=== PATIENT | male | born 1955 | race Caucasian/White ===

== ENCOUNTER 2018-01-28 23:33 | Inpatient (IN) | payer SELFPAY ==
[2018-01-29 00:37] LABS: Troponin I 0.194 ng/mL (< 0.028)
[2018-01-29 03:38] LABS: Troponin I 0.206 ng/mL (< 0.028)
[2018-01-29] MEDS ORDERED: Gabapentin 100 MG CAP PO SCH (05:45)
[2018-01-29] MEDS: diphenhydrAMINE 25 MG CAP PO PRN (06:12)
[2018-01-29] MEDS ORDERED: Artificial Tear Sol 15 ML BOT EA EYE PRN (09:04)
[2018-01-29] MEDS ORDERED: Acetaminophen 325 MG TAB PO PRN (09:04)
[2018-01-29] MEDS ORDERED: Bisacodyl 5 MG TAB PO PRN (09:04)
[2018-01-29] MEDS ORDERED: Bisacodyl 10 MG SUPP PR PRN (09:04)
[2018-01-29] MEDS ORDERED: Calcium Carbonate 500 MG ChewTAB PO PRN (09:04)
[2018-01-29] MEDS ORDERED: Loperamide HCl 2 MG CAP PO PRN (09:04)
[2018-01-29] MEDS ORDERED: Cepastat Lozenges 1 LOZ PO PRN (09:04)
[2018-01-29] MEDS ORDERED: hydrALAZINE 20 MG/ML VIAL SLOW IVP PRN (09:04)
[2018-01-29] MEDS ORDERED: Eucerin (Mineral Oil/Petrolatum,White) 30 gm Jar TOP PRN (09:04)
[2018-01-29] MEDS ORDERED: Ondansetron PF 4 MG/2 ML Vial IVP PRN (09:04)
[2018-01-29] MEDS ORDERED: Senokot S 8.6-50 MG TAB PO PRN (09:04)
[2018-01-29] MEDS ORDERED: Ondansetron ODT 4 MG TAB PO PRN (09:04)
[2018-01-29] MEDS ORDERED: Nitroglycerin 0.4 MG TAB (25 Tab Bottle) SL PRN (09:04)
[2018-01-29] MEDS ORDERED: Sodium Chloride 0.65% Nasal 44 ML BOT EA NARE PRN (09:04)
[2018-01-29] MEDS ORDERED: Diabetic Tussin 200 MG/10 ML UDCUP PO PRN (09:04)
[2018-01-29] MEDS ORDERED: Dextrose 5% in Water 1,000 ML IV PRN (09:09)
[2018-01-29] MEDS ORDERED: Dextrose 50% Abboject 50 ML SYRINGE SLOW IVP PRN (09:09)
[2018-01-29] MEDS ORDERED: Furosemide 40 MG/4 ML VIAL SLOW IVP SCH (09:30)
--- NOTE | 2018-01-29 10:17 | HP ---
PRIMARY CARE PHYSICIAN: [facility] call admission. The patient does not have any current primary care tony londono. He sometimes follows [facility]. REASON FOR ADMISSION: Transfer from [facility] for CHF exacerbation and atrial fibr illation with rapid ventricular response. HISTORY OF PRESENT ILLNESS: A 62-year-old male who has underlying history of congestive heart failur e, type of congestive heart failure is not known. The patient reports that he used to follow up at [facility], but he does not have any remembrance of type of congestive heart failure. He also reports that he has underlying history of atrial fibrillation and one point he was on chronic an ticoagulation. In addition to that, he has underlying morbid obesity, sleep apnea, hypertension, and diabetes type 2. The patient reports that he lost his job and he lost his insurance and for the last one month he was not able to take any medication. The patient reports that he cannot afford any medication and that i s why he stopped taking the medication. Since then, the patient is having increasing shortness of breath, dyspnea on exertion, orthopnea, PND , and increasing bilateral lower extremity pitting edema. For the last one week, the patient was not able to sleep because of orthopnea and PND. Even after a little exertion, he was getting out of natalia ath. The patient decided to go to [facility] where he was found with atrial fibrillation with RVR based on electrocardiogram and chest x-ray showed cardiomegaly with congestion. His blood s ugar was also out of control. At [facility], he was given Cardizem 20 mg IV push, L asix 80 mg and Novolin R 8 units. Subsequently, this patient was transferred to our emergency room f or admission. The patient denies any chest pain, palpitation. He denies any dizziness, syncope. He denies any fev er or chills. He denies any UTI symptoms. He denies any constipation, diarrhea, melena or hematoche lizandro. The patient reports that he lives alone at home. He has home CPAP machine. REVIEW OF SYSTEMS: The following complete review of systems was negative, unless otherwise mentioned in the HPI or below: Constitutional: Weight loss or gain, ability to conduct usual activities. Sk in: Rash, itching. Eyes: Double vision, pain. ENT/Mouth: Nose bleeding, neck stiffness, pain, tenderness. Cardiovascular: Palpitations, dyspnea on exertion, orthopnea. Respiratory: Shortness of breath, wheezing, cough, hemoptysis, fever or night sweats. Gastrointestinal: Poor appetite, abdominal pain, heartburn, nausea, vomiting, constipation, or diarr hea. Genitourinary: Urgency, frequency, dysuria, nocturia. Musculoskeletal: Pain, swelling. Neurologic/Psychiatric: Anxiety, depression. Allergy/Immunologic: Skin rash, bleeding tendency. Please see my HPI for pertinent positive and negative. All other review of systems reviewed and nega tive except as mentioned in the HPI. EMERGENCY ROOM COURSE: The patient is given Novolin R 8 units, aspirin 324 mg, Cardizem 20 mg push, Lasix 80 mg at [facility] and the patient has received nothing in our emergency room . ALLERGIES: No known drug allergy. CURRENT HOME MEDICATIONS: Amlodipine 10 mg p.o. daily, aspirin 324 mg p.o. daily, Coreg 25 mg p.o. b .i.d., Lasix 40 mg p.o. b.i.d., glipizide 10 mg p.o. daily, lisinopril 20 mg p.o. daily, metformin 10 00 mg p.o. b.i.d. PAST MEDICAL HISTORY: 1. Congestive heart failure, type of congestive heart failure is not known. 2. Hypertension. 3. Diabetes type 2. 4. Morbid obesity with BMI of 47. 5. Obstructive sleep apnea on CPAP. 6. Atrial fibrillation. 7. Diabetes type 2. PAST SURGICAL HISTORY: The patient reports that he had broken bone surgeries like right wrist, left knee, left elbow and left foot surgery, but no other organ surgery. PAST PSYCHIATRIC HISTORY: Anxiety and depression. The patient denies any suicidal or homicidal idea tion. FAMILY HISTORY: The patient denies any strong family history of premature coronary artery disease, s troke or cancer. No family history of cardiomyopathy. SOCIAL HISTORY: The patient lives alone in the [place] area. He has 3 kids, lives in the [facility] area. He drinks alcohol occasionally once a month. He denies any smoking. He has pets. He denie s any other illicit drug abuse. He is currently not working. PHYSICAL EXAMINATION: VITAL SIGNS: On arrival to our emergency room, blood pressure 120/85, pulse 105 and irregular, respi ratory rate 22, saturation 99% on 2 liter oxygen, weight 145 kilograms. GENERAL: The patient is currently alert, awake, mild distress due to orthopnea. HEENT: Head: Normocephalic, atraumatic. Eyes: Pupils round, reactive to light. Extraocular muscl e intact. ENT: Oropharynx within normal limits. Moist mucous membranes, no oral lesions, no pharyn geal erythema, no exudate. NECK: Supple, elevated JVD, no thyromegaly, no carotid bruit. LUNGS: Coarse breath sounds. Few basal rales noted. No wheezing. No end expiratory muscles of res piration in use. CARDIAC: S1, S2 irregular. No murmur, no gallop, no rub. ABDOMEN: Morbid obesity limiting examination. No peritoneal sign, no guarding, no rigidity, no rebo und. BACK: Unremarkable, no CVA tenderness. EXTREMITIES: Upper extremity passive movement of all joints are normal. Lower extremity bilateral + 3 pitting edema noted. Good distal pulsation. SKIN: No skin rash. HEMATOLOGICAL: No lymphadenopathy. PSYCHIATRIC: Normal affect. NEUROLOGIC: Nonfocal examination. SIGNIFICANT LABORATORY DATA AND IMAGING: CBC: WBC 7.1, hemoglobin 14.6, platelet 113. BMP: Sodium 137, potassium 4.3, chloride 103, carbon dioxide 23, BUN 19, creatinine 1.68. Glucose 320, calcium 9.5. LFT: AST 25, ALT 17, alkaline phosphatase 71, albumin 3.8. CK-MB 7.3, troponin I 0.186, then 0.0194, then 0.206. Urinalysis; glucosuria and proteinuria. Chest x-ray based on my review consistent with cardiomegaly, pulmonary vascular congestion. EKG show ing atrial fibrillation with rapid ventricular response. ASSESSMENT AND PLAN: 1. Acute on chronic congestive heart failure. I am suspecting diastolic heart failure because of as sociated hypertension, atrial fibrillation, and morbid obesity. To confirm type of congestive heart failure, the patient will need echocardiography. The patient will need aggressive diuretic therapy with Lasix 40 mg p.o., fluid restriction 1500 mL per day. We will monitor electrolytes and renal fun ction and replace electrolytes accordingly. We will monitor daily weight and titrate his cardiac med ication accordingly. Based on severity of illness, the patient will need hospitalization for more th an 2 midnights and during this admission, the patient will have cardiac rehab. The patient will need outpatient follow up with PCP as well as [facility]. 2. Atrial fibrillation with rapid ventricular response. At this point, rate appears to be controlle d and I am starting with the Coreg 25 mg p.o. b.i.d. and the patient needs chronic anticoagulation be cause of high CHADS2-VASc score and that is why we will start Eliquis 5 mg p.o. b.i.d., aspirin 81 mg p.o. daily. If heart rate remains faster, then we will consider adding digoxin. Depending upon ech ocardiographic finding and clinical course, we will decide Cardiology consultation while in hospital. 3. Elevated troponin, likely due to demand ischemia of myocardium secondary to congestive heart fail ure exacerbation and atrial fibrillation with rapid ventricular response. The patient is on aspirin 81 mg p.o. daily and we will check lipid profile tomorrow morning. We will start Lipitor 40 mg p.o. at bedtime. 4. Morbid obesity. Dietary education given, weight loss education given. Healthy lifestyle measure s discussed with the patient. 5. Obstructive sleep apnea. The patient will need CPAP machine while in hospital as well. 6. Diabetes type 2. Diabetic diet will be given, insulin as per sliding scale per protocol. We js l continue glipizide 10 mg p.o. daily and metformin 1000 mg p.o. b.i.d. 7. Hypertension. Because of lower extremity edema, we are going to hold amlodipine for now, but we will continue lisinopril, Coreg, and Lasix. 8. Chronic kidney disease stage 3. We will monitor renal function and avoid nephrotoxin agents. 9. Mild thrombocytopenia. We will repeat CBC tomorrow. 10. Hyperglycemia associated with diabetes type 2. Likely due to noncompliance with the treatment. We are starting medication now and will monitor blood sugar and adjust medication as needed. 11. Glucosuria, proteinuria. We will check urine protein/creatinine ratio and rule out nephrotic sy ndrome. 12. Deep venous thrombosis prophylaxis. We have started Eliquis therapy for atrial fibrillation and that is why no need of Lovenox. 13. Gastrointestinal prophylaxis, Pepcid 20 mg p.o. b.i.d. 14. Code status. I spoke with the patient and the patient does not want to be resuscitated in case of cardiopulmonary arrest and code status confirmed with him. He makes his own decisions. 15. Edema, bilateral lower extremities, most likely related with congestive heart failure, but assoc iated deep venous thrombosis. We will rule out with ultrasound of the lower extremity. 16. We will check tomorrow BNP, magnesium, uric acid, TSH, lipid profile, hemoglobin A1c, and routin e labs. Plan of care discussed with the patient in detail.
[2018-01-29] MEDS: Gabapentin 100 MG CAP PO SCH ×2 (10:18→22:08)
[2018-01-29 10:21] LABS: Hemoglobin 14.3 g/dL (14.0-18.0); Platelet Count 107 thou/uL (130-400)
[2018-01-29 12:56] LABS: Bilirubin Negative (Negative); Blood, Urine Negative (Negative); Clarity CLEAR (Clear); Glucose, Urine (Dipstick) 100 mg/dL (Negative); Leukocyte Negative (Negative); Nitrite Negative (Negative); Protein, Urine (Dipstick) 30 mg/dL (Neg-Trace); Specific Gravity, Urine 1.011 (1.002-1.036)
[2018-01-29 12:57] LABS: Bacteria/HPF None Seen HPF (None Seen); Hyaline Casts/LPF 4-6 HYALINE CAST LPF (0-3 Hyaline); Pathc Cast-AUWi Flag 1.01 (0-2.49); RBC/HPF 0-3 HPF (0-3); Squamous Epithelial 0-3 HPF (0-3); WBC/HPF 0-3 HPF (0-3)
--- NOTE | 2018-01-29 12:59 | ULT ---
BILATERAL LOWER EXTREMITY VENOUS DUPLEX ULTRASOUND INCLUDING COLOR AND SPECTRAL DOPPLER IMAGING: HISTORY: A 62-year-old male with a history of bilateral leg edema. FINDINGS: The left common femoral vein and greater saphenous vein were inadequately visualized because of body habitus and patient unable to lay flat on this back. Otherwise, the greater saphenous, common femoral, superficial femoral, profunda femoral, popliteal, t rifurcation, and posterior tibial veins were visualized bilaterally with normal compressibility and n ormal augmentation. No intraluminal thrombus. IMPRESSION: No evidence for deep venous thrombosis. POS: CARLIE
[2018-01-29 13:10] LABS: Creatinine, Urine 89.03 mg/dL (63-166)
[2018-01-29] MEDS: Furosemide 40 MG/4 ML VIAL SLOW IVP SCH (14:29)
[2018-01-29] MEDS: HYDROcodone/Acetaminophen 5/325 mg Tablet PO PRN ×2 (14:31→22:08)
[2018-01-29] MEDS: HumaLOG 300 UNITS/3 ML VIAL SC PRN ×2 (16:02→22:09)
[2018-01-29] MEDS: metFORMIN 500 MG TAB PO SCH (17:14)
[2018-01-29] MEDS ORDERED: Digoxin 0.5 MG/2 ML AMP SLOW IVP SCH (20:30)
[2018-01-29] MEDS: Apixaban 5 MG TAB PO SCH (22:07)
[2018-01-29] MEDS: Atorvastatin Calcium 40 MG TAB PO SCH (22:08)
[2018-01-29] MEDS: Famotidine 20 MG TAB PO SCH (22:08)
[2018-01-29] MEDS: Carvedilol 25 MG TAB PO SCH (22:08)
--- NOTE | 2018-01-29 22:29 | CON ---
DATE OF CONSULTATION: 01/29/2018 INDICATION FOR CONSULTATION: This is a 62-year-old patient with congestive heart failure, cardiomyop athy, atrial fibrillation with rapid ventricular response. HISTORY OF PRESENT ILLNESS: This is a very unfortunate 62-year-old gentleman, who has a history of c ardiomyopathy and congestive heart failure for many years. He first had episodes of congestive heart failure back in 2004 when he was in [place] and was diagnosed with atrial fibrillation. He has not undergone cardioversion. He did have a cardiac catheterization several years ago when he was either in [place] or [place], and I believe in 2009, he had a cardiac catheterization and was told that he had normal coronary arteries. He did see a public relations analyst in [place] about 3 years ago and confirmed bridger romero that he has congestive heart failure. There has been no attempt to cardiovert the patient as far as he knows, but he does have a dilated left atrium as well as dilated right atrium and dilated righ t ventricle and left ventricle. At this time, he presented to [facility] avila velazquez of increasing shortness of breath, was found to have atrial fibrillation with rapid ventricular res ponse. He continues to have atrial fibrillation at this time and continues to have a rapid ventricul ar response. His heart rate is in the 100s to 110s, so he has been seen by the Hospitalist Service a nd he has been placed on Coreg, but I do not see that he is on diltiazem and will need to better cont rol. We may need to add some digoxin to the patient to see whether or not we can better control his heart rate, but at this time, he remains in atrial fibrillation with rapid ventricular response, whic h he has been in atrial fibrillation for many years, though suspect this is one of the etiology of hi s cardiomyopathy. Unfortunately, he has had some problems with his work. 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 He, for the last couple months, has not been taking his medications. He s aid he has had increasing shortness of breath. He did have lower extremity edema, which he said orig inally improved after he stopped taking his medications, but then the edema returned. He said he los t about 50 pounds. He still weighs about over 300 pounds and at one time said he was up to almost 40 0 pounds and mainly notes that he was getting more and more short of breath over the last several wee ks and then presented to the emergency room. He has not had any insurance, has been unable to take t he medications and unable to afford them. He also has not been followed up by any medical doctor and then presented to the emergency room. He does have a CPAP mask, which he wears at home and he also lives alone. PAST MEDICAL HISTORY: Significant for congestive heart failure, morbid obesity, history of atrial fi brillation. He has had several surgeries for broken wrist, knees, and elbows, and foot surgery. He has hypertension. He has type 2 diabetes. He has sleep apnea, for which he wears a CPAP mask. He h as history of the congestive heart failure as noted above. He does have a history of depression and anxiety. ALLERGIES: None. MEDICATIONS: Prior to admission should have included amlodipine 10 mg a day, aspirin 324 mg a day, C oreg, which he said he takes actually 84, baby aspirin a day. He takes Coreg 25 b.i.d., Lasix 40 mg b.i.d., glipizide, lisinopril, and metformin 1000 mg b.i.d. FAMILY HISTORY: Noncontributory at this time for any early heart disease. SOCIAL HISTORY: He does have children who are alive and well. He does not smoke. He says he has ne elian smoked and he has only minimal alcohol use, occasionally with a meal. He will drink some alcohol , but relatively unusual, and he denied any illicit drug use. REVIEW OF SYSTEMS: He mainly complains of the lower extremity edema and of the shortness of breath. He has had some lower extremity ulcerations, for which he dresses himself. He puts a wrap on them a nd they since resolved, but otherwise he denied any or GI complaints otherwise and no neurological symptoms or complaints. PHYSICAL EXAMINATION: GENERAL: Morbidly obese gentleman. VITAL SIGNS: Blood pressure is 125/84, respiratory rate 17-22, heart rate is anywhere between 95 and 130 with atrial fibrillation. He is afebrile. HEENT: Shows the head to be normocephalic and atraumatic. I cannot elicit any significant bruits. He has somewhat poor dentition, somewhat unkempt gentleman. CHEST: Has decreased breath sounds in the bases, but otherwise I cannot elicit any significant rales , rhonchi or wheezing. CARDIOVASCULAR: Exam reveals an irregularly irregular rhythm. It does appear that he does have also despite having the regular rhythm, he most likely has an S3. Heart rate is somewhat tachycardic at times. I did not hear any gross murmurs. ABDOMEN: Shows morbid obesity. I cannot even do any reasonable examination due to the obesity. EXTREMITIES: Show 2 to 3+ lower extremity edema. He has some bandages over both lower extremities, just small areas due to ulcerations apparently. I cannot palpate pedal pulses, but most likely this is due to the edema. NEUROLOGIC: He appears to be intact. I cannot elicit any gross focal motor deficits. SKIN: Warm and dry at this time. LABORATORY DATA: Shows a troponin I of 0.194 increased up to 0.26. Creatinine is 1.66 with a BUN of 19, potassium was 4.3, blood sugar was 277 and previous was 320. BNP was 848. Hemoglobin 14.3. IMPRESSION: 1. Atrial fibrillation with rapid ventricular response in a gentleman who has had atrial fibrillatio n for many years apparently, who has stopped taking his medications due to financial issues. We will need to restart his medications. He needs to be on a beta allie and also most likely digoxin for rate control. He has not had an attempted cardioversion, but fairly unlikely that we do any good at this time. According to my evaluation with echocardiogram, the left atrium is dilated as well as the right atrium, and for electrical cardioversion, whether or not he would be a candidate for at this t zaid and it will be very difficult even for an ablation of the atrial fibrillation. We will need to g et him back on his medication and see whether or not he is cooperative and compliant with his medical therapy, but the patient did tell me that he underwent a cardiac catheterization previously and was told that he had normal coronary arteries in 2009. 2. Cardiomyopathy with severe decrease in left ventricular systolic function. This may be related t o the atrial fibrillation with rapid ventricular response and not taking his medications. Hopefully, he will get some improvement after starting back on the medications. He may otherwise become a cand idate for an AICD implant. We will try to obtain the records from [place] to see whether or not they had any insight as to whether or not he truly does have normal coronary arteries and whether or not h e will need to undergo further evaluation. The weight limit on the table may be 350 pounds, I am unc ertnick, but we will need to look that they may have one table at veterinary laboratory diagnostician that is 400 pounds and he m ay need to undergo cardiac catheterization, but he will need to be diuresed first and the heart rate will need to be under better control. 3. History of right bundle branch block. This is not a new finding apparently in this patient, but I do not have any old EKGs for comparison. 4. What appears to be diastolic dysfunction with restrictive type pattern. Again, we will need to m odify the medical management as much as possible. 5. Chronic atrial fibrillation. He had been on Coumadin in the past. It was too difficult to saida susan to monitor the INR. He then was on Xarelto and could not afford the medication. He is now just taking 4 baby aspirin a day. In the future, he will need to have some type of financial help to obta in his medications and we will suggest a consultation with the financial services here at the [facility] and then most likely he can try to apply for Medicare or Medicaid. The gentleman is only 62 years old and would not become 63 years old until next year, but most likely would be a candidate for at [facility] Medicare or Medicaid based on his severe cardiomyopathy and inability to mobilize due to his morb id obesity as well as his other multiple medical problems. 6. History of diabetes. This will be dealt with by the primary care service. 7. Morbid obesity. I will suggest that he have a dietary consultation to see whether or not we can improve some of this weight. He should reduce at least 100 to 150 pounds and this may improve some o f his overall symptoms.
[2018-01-30] MEDS: Furosemide 40 MG/4 ML VIAL SLOW IVP SCH ×2 (05:28→14:57)
[2018-01-30] MEDS: Digoxin 0.5 MG/2 ML AMP SLOW IVP SCH ×4 (05:29→22:14)
[2018-01-30 07:38] LABS: INR-International Normal Ratio 1.7; Prothrombin Time 20.1 SEC (12.0-14.7)
[2018-01-30 07:41] LABS: Hemoglobin A1c 11.2 % (4.0-6.0)
[2018-01-30 07:42] LABS: #Eosinphils 0.1 thou/uL (0.0-0.7); #Lymphocytes 1.1 thou/uL (1.20-3.40); #Monocytes 0.6 thou/uL (0.11-0.59); #Neutrophils 4.8 thou/uL (1.40-6.50); %Basophils 0.6 % (0.0-1.0); %Eosinophils 1.9 % (0.0-10.0); %Lymphocytes 16.1 % (21.0-51.0); %Monocytes 9.1 % (0.0-10.0); %Neutrophils 72.3 % (42.0-75.0); Hemoglobin 13.4 g/dL (14.0-18.0); Mean Corpuscular HGB CONC 32.8 g/dL (32.0-36.0); Mean Corpuscular Hemoglobin 31.4 pg (27.0-31.0); Mean Corpuscular Volume 95.6 fL (78.0-98.0); Mean Platelet Volume 8.8 fL (7.4-10.4); Platelet Count 92 thou/uL (130-400); RBC Distribution Width 12.9 % (11.5-14.5); Red Blood Cell (RBC) Count 4.28 mill/uL (4.70-6.10); White Blood Cell (WBC) Count 6.6 thou/uL (4.8-10.8)
[2018-01-30 08:07] LABS: ALT (SGPT) 14 U/L (8-55); AST (SGOT) 24 U/L (5-34); Albumin 3.1 g/dL (3.4-4.8); Alkaline Phosphatase 60 U/L (40-150); Anion Gap 14 mmol/L (10-20); BUN (Urea Nitrogen) 27 mg/dL (8.4-25.7); Bilirubin, Total 1.3 mg/dL (0.2-1.2); Calc. Creatinine Clearance 94 mL/min (70-130); Carbon Dioxide 21 mmol/L (23-31); Cardiac Risk 4.8 (Less than 4.5); Chloride 102 mmol/L (98-107); Cholesterol 100 mg/dl (< 200 Desired); Estimated GFR-MDRD 43; Globulin 2.8 g/dL (2.4-3.5); Glucose 218 mg/dL (80-115); HDL Cholesterol 21 mg/dL (>60 Neg Risk); LDL Cholesterol, Calculated 62 mg/dL; Magnesium 1.4 mg/dL (1.6-2.6); Potassium 3.8 mmol/L (3.5-5.1); Protein, Total 5.9 g/dL (5.8-8.1); Sodium 133 mmol/L (136-145); Triglycerides 84 mg/dL (Less than 150); Uric Acid 7.8 mg/dL (3.5-7.2)
[2018-01-30] MEDS: metFORMIN 500 MG TAB PO SCH ×2 (08:53→17:13)
[2018-01-30] MEDS: Gabapentin 100 MG CAP PO SCH ×2 (08:53→20:39)
[2018-01-30] MEDS: Famotidine 20 MG TAB PO SCH ×2 (08:53→20:39)
[2018-01-30] MEDS: glipiZIDE 10 MG TAB PO SCH (08:54)
[2018-01-30] MEDS: Carvedilol 25 MG TAB PO SCH (08:54)
[2018-01-30] MEDS: Apixaban 5 MG TAB PO SCH ×2 (08:54→20:39)
[2018-01-30] MEDS: Sodium Chloride 0.9% 10 ML ONE ×4 (08:55→20:39)
[2018-01-30] MEDS: HumaLOG 300 UNITS/3 ML VIAL SC PRN ×2 (08:57→12:11)
[2018-01-30] MEDS ORDERED: Lisinopril 20 MG TAB PO SCH (09:00)
[2018-01-30] MEDS ORDERED: Aspirin 325 MG TAB PO SCH (09:00)
[2018-01-30] MEDS ORDERED: Enoxaparin Sodium 40 MG/0.4 ML SYRINGE SC SCH (09:00)
[2018-01-30] MEDS: HYDROcodone/Acetaminophen 5/325 mg Tablet PO PRN ×2 (09:10→20:46)
[2018-01-30] MEDS: Digoxin 0.25 MG TAB PO SCH (09:11)
--- NOTE | 2018-01-30 09:34 | RAD ---
CHEST 1 VIEW: HISTORY: Respiratory distress. COMPARISON: Radiograph of 01/28/2018. FINDINGS: Heart size is enlarged. Pulmonary arteries are dilated. Mild pulmonary venous congestion. Small ef fusions. No pneumothorax. IMPRESSION: No significant change in radiographic appearance of the chest. POS: KRISTINE
--- NOTE | 2018-01-30 10:10 | PDOC.PN ---
- Subjective Encounter Start Date: 01/30/18 Encounter Start Time: 07:40 -: old records requested/rev Patient seen and examined. No new complaints. No overnight events still has orthopnea and dyspnea - Objective Resuscitation Status: Resuscitation Status DNR:Do Not Resuscitate MAR Reviewed: Yes Vital Signs & Weight: Vital Signs (12 hours) Temp Pulse Resp BP Pulse Ox 01/30/18 09:11 80 01/30/18 08:36 77 20 95 01/30/18 08:00 97.4 F L 82 20 96/64 95 01/30/18 05:29 93 01/30/18 04:27 95 01/30/18 04:24 22 H 95 01/30/18 03:36 97.7 F 92 20 109/73 92 L 01/30/18 00:05 96 01/29/18 23:15 116/68 Weight Weight 323 lb I&O: 01/29/18 01/30/18 01/31/18 06:59 06:59 06:59 Intake Total 500 600 Output Total 175 575 Balance 325 25 Result Diagrams: 01/30/18 06:56 01/30/18 06:56 Additional Labs: Accuchecks 01/30/18 01/29/18 01/29/18 06:01 21:02 17:31 POC Glucose 242 H 244 H 277 H 01/29/18 01/29/18 14:54 11:02 POC Glucose 276 H 288 H Radiology Reviewed by me: Yes (echo reviewed) EKG Reviewed by me: Yes (afib) Phys Exam - Physical Examination Constitutional: NAD HEENT: PERRLA, moist MMs, sclera anicteric Neck: supple high jvd Respiratory: no wheezing, no rhonchi basal rales Cardiovascular: no significant murmur, irregular Gastrointestinal: soft, non-tender, no distention, positive bowel sounds Musculoskeletal: pulses present, edema present Neurological: non-focal, normal sensation, moves all 4 limbs Lymphatic: no nodes Psychiatric: normal affect, A&O x 3 Skin: no rash, normal turgor Dx/Plan (1) Acute on chronic systolic ACC/AHA stage C congestive heart failure Code(s): I50.23 - ACUTE ON CHRONIC SYSTOLIC (CONGESTIVE) HEART FAILURE Status : Acute (2) Atrial fibrillation with RVR Code(s): I48.91 - UNSPECIFIED ATRIAL FIBRILLATION Status: Acute (3) Demand ischemia of myocardium Code(s): I24.8 - OTHER FORMS OF ACUTE ISCHEMIC HEART DISEASE Status: Acute (4) CKD (chronic kidney disease) stage 3, GFR 30-59 ml/min Code(s): N18.3 - CHRONIC KIDNEY DISEASE, STAGE 3 (MODERATE) Status: Chronic (5) Diabetes type 2, controlled Code(s): E11.9 - TYPE 2 DIABETES MELLITUS WITHOUT COMPLICATIONS Status: Chronic (6) Hypertension Code(s): I10 - ESSENTIAL (PRIMARY) HYPERTENSION Status: Chronic (7) Morbid obesity with BMI of 45.0-49.9, adult Code(s): E66.01 - MORBID (SEVERE) OBESITY DUE TO EXCESS CALORIES; Z68.42 - BODY MASS INDEX (BMI) 45.0-49.9, ADULT Status: Chronic (8) NADEEM on CPAP Code(s): G47.33 - OBSTRUCTIVE SLEEP APNEA (ADULT) (PEDIATRIC); Z99.89 - DEPENDENCE ON OTHER ENABLING MACHINES AND DEVICES Status: Chronic (9) Hypomagnesemia Code(s): E83.42 - HYPOMAGNESEMIA Status: Acute (10) Hyperuricemia Code(s): E79.0 - HYPERURICEMIA W/O SIGNS OF INFLAM ARTHRIT AND TOPHACEOUS DIS Status: Acute - Plan cont current plan of care * continue diuresis today * medication reviewed as below * symptomatic treatment * he will need several days to make him euvolemic * will titrate medication as tolerated * cardiology recommendation appreciated * will monitor. * replace magnesium * start allopurinol * reduce coreg and lisinopril for low BP Review of Systems - Review of Systems Constitutional: negative: fever, chills, sweats, weakness, malaise, other Eyes: negative: Pain, Vision Change, Conjunctivae Inflammation, Eyelid Inflammation, Redness, Other ENT: negative: Ear Pain, Ear Discharge, Nose Pain, Nose Discharge, Nose Congestion, Mouth Pain, Mouth Swelling, Throat Pain, Throat Swelling, Other Respiratory: SOB with Excertion. negative: Cough, Dry, Shortness of Breath, Hemoptysis, Pleuritic Pain, Sputum, Wheezing Cardiovascular: orthopnea, edema. negative: chest pain, palpitations, paroxysmal nocturnal dyspnea, light headedness, other Gastrointestinal: negative: Nausea, Vomiting, Abdominal Pain, Diarrhea, Constipation, Melena, Hematochezia, Other Genitourinary: negative: Dysuria, Frequency, Incontinence, Hematuria, Retention , Other Musculoskeletal: negative: Neck Pain, Shoulder Pain, Arm Pain, Back Pain, Hand Pain, Leg Pain, Foot Pain, Other Skin: negative: Rash, Lesions, Alvaro, Bruising, Other - Medications/Allergies Allergies/Adverse Reactions: Allergies Allergy/AdvReac Type Severity Reaction Status Date / Time No Known Allergies Allergy Verified 01/29/18 03:22 Medications: Current Medications Acetaminophen (Tylenol) 650 mg PO Q4H PRN PRN Reason: Headache/Fever/Mild Pain (1-3) Hydrocodone Bitart/Acetaminophen ([place] 5/325) 1 tab PO Q4H PRN PRN Reason: Moderate Pain (4-6) Last Admin: 01/30/18 09:10 Dose: 1 tab Albuterol/Ipratropium (Duoneb) 3 ml NEB [id number] PRN PRN Reason: SOB &/or Wheezing Last Admin: 01/30/18 08:36 Dose: 3 ml Apixaban (Eliquis) 5 mg PO BID [facility] Last Admin: 01/30/18 08:54 Dose: 5 mg Artificial Tears (Tears Renewed 15ml Bottle) 2 drop EA EYE PRN PRN PRN Reason: Dry Eyes Aspirin (Aspirin Chewable) 81 mg PO DAILY [facility] Last Admin: 01/30/18 08:53 Dose: 81 mg Atorvastatin Calcium (Lipitor) 40 mg PO HS [facility] Last Admin: 01/29/18 22:08 Dose: 40 mg Bisacodyl (Dulcolax) 10 mg PO DAILYPRN PRN PRN Reason: Constipation Bisacodyl (Dulcolax) 10 mg [place] DAILYPRN PRN PRN Reason: Constipation Calcium Carbonate (Tums) 1,000 mg PO Q4H PRN PRN Reason: Heartburn or Indigestion Carvedilol (Coreg) 25 mg PO BID [facility] Last Admin: 01/30/18 08:54 Dose: 25 mg Dextrose/Water (Dextrose 50%) 25 gm SLOW IVP PRN PRN PRN Reason: Hypoglycemia Digoxin (Lanoxin) 0.25 mg SLOW IVP Q8HR [facility] Stop: 01/30/18 22:01 Last Admin: 01/30/18 05:29 Dose: 0.25 mg Digoxin (Lanoxin) 0.25 mg PO QAM [facility] Last Admin: 01/30/18 09:11 Dose: 0.25 mg Diphenhydramine HCl (Benadryl) 25 mg PO Q6H PRN PRN Reason: Itching Last Admin: 01/29/18 06:12 Dose: 25 mg Famotidine (Pepcid) 20 mg PO BID [facility] Last Admin: 01/30/18 08:53 Dose: 20 mg Furosemide (Lasix) 40 mg SLOW IVP 0600,1400 [facility] Last Admin: 01/30/18 05:28 Dose: 40 mg Gabapentin (Neurontin) 100 mg PO BID [facility] Last Admin: 01/30/18 08:53 Dose: 100 mg Glipizide (Glucotrol) 10 mg PO DAILY [facility] Last Admin: 01/30/18 08:54 Dose: 10 mg Glucagon (Glucagon) 1 mg IM PRN PRN PRN Reason: Hypoglycemia Guaifenesin (Robitussin Sf) 200 mg PO Q4H PRN PRN Reason: Cough Hydralazine HCl (Apresoline) 10 mg SLOW IVP Q4H PRN PRN Reason: SBP > 180 and HR < 70 Dextrose/Water (D5w) 1,000 mls @ 0 mls/hr IV .Q0M PRN PRN Reason: Hypoglycemia Insulin Human Lispro (Humalog) 0 units SC .MODERATE SLIDING SC PRN PRN Reason: Moderate Correctional Scale Last Admin: 01/30/18 08:57 Dose: 4 unit Insulin Human Lispro (Humalog) 0 units SC .BEDTIME SLIDING SC PRN PRN Reason: Bedtime Correctional Scale Last Admin: 01/29/18 22:09 Dose: 2 unit Lisinopril (Zestril) 20 mg PO DAILY [facility] Loperamide HCl (Imodium) 2 mg PO PRN PRN PRN Reason: Diarrhea/Loose Stools Metformin HCl (Glucophage) 1,000 mg PO BID-[facility] Last Admin: 01/30/18 08:53 Dose: 1,000 mg Mineral Oil/White Petrolatum (Eucerin Cream) 0 gm TOP BIDPRN PRN PRN Reason: Dry Skin Nitroglycerin (Nitrostat) 0.4 mg SL Q5MIN PRN PRN Reason: Chest Pain Ondansetron HCl (Zofran Odt) 4 mg PO Q6H PRN PRN Reason: Nausea/Vomiting Ondansetron HCl (Zofran) 4 mg IVP Q6H PRN PRN Reason: Nausea/Vomiting Senna/Docusate Sodium (Senokot S) 2 tab PO BID PRN PRN Reason: Constipation Sodium Chloride ([place] Nasal [place] 0.65%) 0 ml EA NARE QIDPRN PRN PRN Reason: Nasal Congestion Throat Lozenges (Cepastat Lozenges) 1 reggie PO Q2H PRN PRN Reason: Sore Throat Zolpidem Tartrate (Ambien) 5 mg PO HSPRN PRN PRN Reason: Insomnia
[2018-01-30] MEDS ORDERED: Magnesium Sulfate 3 GM in Sodium Chloride 0.9% 100 ML IVPB SCH (10:30)
[2018-01-30] MEDS: Carvedilol 3.125 MG TAB PO SCH (17:14)
[2018-01-30] MEDS: Atorvastatin Calcium 40 MG TAB PO SCH ×2 (20:38→20:39)
[2018-01-30] MEDS ORDERED: ALPRAZolam 0.25 MG TAB PO SCH (22:30)
[2018-01-31] MEDS: Levothyroxine Sodium 25 MCG TAB PO SCH (06:02)
[2018-01-31] MEDS: Furosemide 40 MG/4 ML VIAL SLOW IVP SCH ×2 (06:02→15:01)
[2018-01-31] MEDS: Sodium Chloride 0.9% 10 ML ONE (06:03)
[2018-01-31] MEDS ORDERED: Sodium Chloride 0.9% 10 ML ONE ×2 (08:26→12:42)
[2018-01-31 08:44] LABS: #Basophils 0.1 thou/uL (0.0-0.2); #Eosinphils 0.2 thou/uL (0.0-0.7); #Lymphocytes 1.4 thou/uL (1.20-3.40); #Monocytes 0.6 thou/uL (0.11-0.59); %Eosinophils 2.6 % (0.0-10.0); %Lymphocytes 19.4 % (21.0-51.0); %Monocytes 8.4 % (0.0-10.0); %Neutrophils 68.6 % (42.0-75.0); Hemoglobin 13.9 g/dL (14.0-18.0); Mean Corpuscular HGB CONC 33.1 g/dL (32.0-36.0); Mean Corpuscular Hemoglobin 31.8 pg (27.0-31.0); Mean Corpuscular Volume 96.1 fL (78.0-98.0); Mean Platelet Volume 8.6 fL (7.4-10.4); Platelet Count 98 thou/uL (130-400); RBC Distribution Width 12.9 % (11.5-14.5); Red Blood Cell (RBC) Count 4.37 mill/uL (4.70-6.10); White Blood Cell (WBC) Count 7.2 thou/uL (4.8-10.8)
[2018-01-31 09:06] LABS: Anion Gap 14 mmol/L (10-20); BUN (Urea Nitrogen) 32 mg/dL (8.4-25.7); Calc. Creatinine Clearance 81 mL/min (70-130); Carbon Dioxide 22 mmol/L (23-31); Chloride 102 mmol/L (98-107); Estimated GFR-MDRD 35; Glucose 142 mg/dL (80-115); Magnesium 1.8 mg/dL (1.6-2.6); Potassium 3.8 mmol/L (3.5-5.1); Sodium 134 mmol/L (136-145)
--- NOTE | 2018-01-31 09:16 | PDOC.CTH ---
<Catalina Glaser - Last Filed: 01/31/18 09:22> Cardiology Progress Note - Subjective The pt seen and examined. No overnight events. He reported he has not voided well yesterday and today. He also complains of mod discomfort to his Rt ear. - Objective Vital Signs Temp Pulse Resp BP BP Pulse Ox 01/31/18 08:00 97.5 F L 84 20 112/75 95 01/31/18 02:25 97.5 F L 88 20 128/78 97 01/30/18 22:14 72 Weight 327 lb 14.4 oz 01/30/18 01/31/18 02/01/18 06:59 06:59 06:59 Intake Total 600 1620 Output Total 575 1350 Balance 25 270 - Physical Examination General/Neuro: alert & oriented x3 Neck: no JVD present Lungs: other: (diminished at bases) Heart: other: (irreuglar) Abdomen: soft Extremities: other: (4+ pitting BLE edema) - Telemetry Telemetry Rhythm: AFib 70s - Labs Result Diagrams: 01/31/18 08:25 01/31/18 08:25 Troponin/CKMB Troponin I 0.206 ng/mL (< 0.028) H 01/29/18 02:51 - Assessment/Plan 1. Acute on chronic combined HF - Add Metolazone 5mg x 1 dose this PM; On BBlocker, ANDRES, Lasix IV BID. 2. Afib with RVR - Well controlled HR with Digogixn and Bblocker; on Eliquis. 3. HTN - stable 4. RBBB - stable 5. DM type 2 - 6. NADEEM on Cpap - 7. Hypothyrodism - Levothyroxin was started from this AM by PCP 8. Obese - weight management education given to the pt. SUSAN wang * Echo on 01/29/18 showed EF < 25-30%, dilated LV, mod ERV, mod-severe dilated LA, mod ERA, mild MR and mild TR Review of Systems - Review of Systems Constitutional: reports: weakness EENTM: reports: no symptoms reported Respiratory: reports: no symptoms reported Cardiac (ROS): reports: no symptoms reported ABD/GI: reports: no symptoms reported : reports: no symptoms reported Musculoskeletal: reports: no symptoms reported <Dallas Silva - Last Filed: 01/31/18 17:23> Cardiology Progress Note - Objective Vital Signs Temp Pulse Resp BP BP BP Pulse Ox 01/31/18 17:02 65 18 97 01/31/18 12:00 97.4 F L 73 18 118/84 95 01/31/18 09:36 70 112/75 01/31/18 09:31 70 01/31/18 08:00 97.5 F L 84 20 112/75 95 Admit Weight 232 lb 12.8 oz Weight 327 lb 14.4 oz 01/30/18 01/31/18 02/01/18 06:59 06:59 06:59 Intake Total 600 1620 Output Total 575 1350 Balance 25 270 - Labs Result Diagrams: 01/31/18 08:25 01/31/18 08:25 Troponin/CKMB Troponin I 0.206 ng/mL (< 0.028) H 01/29/18 02:51 - Assessment/Plan Pt. seen and eval. by me. i agree with the A/P by the RAYON TESTER. Chest clear. Irreg/ irreg. Chronic renal insufficiency.
[2018-01-31] MEDS: Allopurinol 100 MG TAB PO SCH (09:29)
[2018-01-31] MEDS: Apixaban 5 MG TAB PO SCH ×2 (09:31→21:24)
[2018-01-31] MEDS: Digoxin 0.25 MG TAB PO SCH (09:31)
[2018-01-31] MEDS: Famotidine 20 MG TAB PO SCH ×2 (09:32→21:25)
[2018-01-31] MEDS: Carvedilol 3.125 MG TAB PO SCH ×2 (09:32→16:52)
[2018-01-31] MEDS: metFORMIN 500 MG TAB PO SCH ×2 (09:32→16:52)
[2018-01-31] MEDS: Gabapentin 100 MG CAP PO SCH ×2 (09:33→21:25)
[2018-01-31] MEDS: glipiZIDE 10 MG TAB PO SCH (09:34)
[2018-01-31] MEDS: Lisinopril 5 MG TAB PO SCH (09:36)
[2018-01-31] MEDS: HYDROcodone/Acetaminophen 5/325 mg Tablet PO PRN ×3 (09:41→21:25)
[2018-01-31] MEDS ORDERED: Carbamide Peroxide 6.5% Otic Drops 15 ml Bottle EA EAR SCH (12:15)
[2018-01-31] MEDS ORDERED: Metolazone 5 MG TAB PO SCH (13:00)
[2018-01-31] MEDS: HumaLOG 300 UNITS/3 ML VIAL SC PRN (13:24)
--- NOTE | 2018-01-31 13:24 | PDOC.PN ---
- Subjective Encounter Start Date: 01/31/18 Encounter Start Time: 10:00 Patient seen and examined. No new complaints. No overnight events - Objective Resuscitation Status: Resuscitation Status DNR:Do Not Resuscitate MAR Reviewed: Yes Vital Signs & Weight: Vital Signs (12 hours) Temp Pulse Resp BP BP BP Pulse Ox 01/31/18 09:36 70 112/75 01/31/18 09:31 70 01/31/18 08:00 97.5 F L 84 20 112/75 95 01/31/18 02:25 97.5 F L 88 20 128/78 97 Weight Weight 327 lb 14.4 oz I&O: 01/30/18 01/31/18 02/01/18 06:59 06:59 06:59 Intake Total 600 1620 Output Total 575 1350 Balance 25 270 Result Diagrams: 01/31/18 08:25 01/31/18 08:25 Additional Labs: Accuchecks 01/31/18 01/31/18 01/30/18 10:38 05:55 20:39 POC Glucose 151 H 174 H 170 H EKG Reviewed by me: Yes (afib) Phys Exam - Physical Examination Constitutional: NAD HEENT: PERRLA, moist MMs, sclera anicteric Neck: no JVD, supple Respiratory: no wheezing, no rhonchi rales at base reduced Cardiovascular: no significant murmur, irregular Gastrointestinal: soft, non-tender, no distention, positive bowel sounds morbid obesity+ Musculoskeletal: pulses present, edema present Neurological: non-focal, normal sensation Lymphatic: no nodes Psychiatric: normal affect, A&O x 3 Skin: no rash, normal turgor Dx/Plan (1) Acute on chronic systolic ACC/AHA stage C congestive heart failure Code(s): I50.23 - ACUTE ON CHRONIC SYSTOLIC (CONGESTIVE) HEART FAILURE Status : Acute (2) Atrial fibrillation with RVR Code(s): I48.91 - UNSPECIFIED ATRIAL FIBRILLATION Status: Acute (3) Demand ischemia of myocardium Code(s): I24.8 - OTHER FORMS OF ACUTE ISCHEMIC HEART DISEASE Status: Acute (4) CKD (chronic kidney disease) stage 3, GFR 30-59 ml/min Code(s): N18.3 - CHRONIC KIDNEY DISEASE, STAGE 3 (MODERATE) Status: Chronic (5) Diabetes type 2, controlled Code(s): E11.9 - TYPE 2 DIABETES MELLITUS WITHOUT COMPLICATIONS Status: Chronic (6) Hypertension Code(s): I10 - ESSENTIAL (PRIMARY) HYPERTENSION Status: Chronic (7) Morbid obesity with BMI of 45.0-49.9, adult Code(s): E66.01 - MORBID (SEVERE) OBESITY DUE TO EXCESS CALORIES; Z68.42 - BODY MASS INDEX (BMI) 45.0-49.9, ADULT Status: Chronic (8) NADE[place] on CPAP Code(s): G47.33 - OBSTRUCTIVE SLEEP APNEA (ADULT) (PEDIATRIC); Z99.89 - DEPENDENCE ON OTHER ENABLING MACHINES AND DEVICES Status: Chronic (9) Hyperuricemia Code(s): E79.0 - HYPERURICEMIA W/O SIGNS OF INFLAM ARTHRIT AND TOPHACEOUS DIS Status: Acute (10) Hypomagnesemia Code(s): E83.42 - HYPOMAGNESEMIA Status: Acute (11) Hypothyroidism Code(s): E03.9 - HYPOTHYROIDISM, UNSPECIFIED Status: Acute (12) Thrombocytopenia Code(s): D69.6 - THROMBOCYTOPENIA, UNSPECIFIED Status: Acute - Plan cont current plan of care, respiratory therapy * start allopurinol 100 mg po daily * start levothyroxine 25 mcg po daily * monitor renal function and platetet * still not euvolemic, will require diuresis * medication reviewed as below * symptomatic treatment. Review of Systems - Review of Systems Constitutional: negative: fever, chills, sweats, weakness, malaise, other Eyes: negative: Pain, Vision Change, Conjunctivae Inflammation, Eyelid Inflammation, Redness, Other ENT: negative: Ear Pain, Ear Discharge, Nose Pain, Nose Discharge, Nose Congestion, Mouth Pain, Mouth Swelling, Throat Pain, Throat Swelling, Other Respiratory: negative: Cough, Dry, Shortness of Breath, Hemoptysis, SOB with Excertion, Pleuritic Pain, Sputum, Wheezing Cardiovascular: orthopnea, edema. negative: chest pain, palpitations, paroxysmal nocturnal dyspnea, light headedness, other Gastrointestinal: negative: Nausea, Vomiting, Abdominal Pain, Diarrhea, Constipation, Melena, Hematochezia, Other Genitourinary: negative: Dysuria, Frequency, Incontinence, Hematuria, Retention , Other Musculoskeletal: negative: Neck Pain, Shoulder Pain, Arm Pain, Back Pain, Hand Pain, Leg Pain, Foot Pain, Other Skin: negative: Rash, Lesions, Alvaro, Bruising, Other - Medications/Allergies Allergies/Adverse Reactions: Allergies Allergy/AdvReac Type Severity Reaction Status Date / Time No Known Allergies Allergy Verified 01/29/18 03:22 Medications: Current Medications Acetaminophen (Tylenol) 650 mg PO Q4H PRN PRN Reason: Headache/Fever/Mild Pain (1-3) Hydrocodone Bitart/Acetaminophen ([place] 5/325) 1 tab PO Q4H PRN PRN Reason: Moderate Pain (4-6) Last Admin: 01/31/18 09:41 Dose: 1 tab Albuterol/Ipratropium (Duoneb) 3 ml NEB [id number] PRN PRN Reason: SOB &/or Wheezing Last Admin: 01/30/18 19:28 Dose: 3 ml Allopurinol (Zyloprim) 100 mg PO DAILY [facility] Last Admin: 01/31/18 09:29 Dose: 100 mg Apixaban (Eliquis) 5 mg PO BID [facility] Last Admin: 01/31/18 09:31 Dose: 5 mg Artificial Tears (Tears Renewed 15ml Bottle) 2 drop EA EYE PRN PRN PRN Reason: Dry Eyes Aspirin (Aspirin Chewable) 81 mg PO DAILY [facility] Last Admin: 01/31/18 09:29 Dose: 81 mg Atorvastatin Calcium (Lipitor) 40 mg PO HS [facility] Last Admin: 01/30/18 20:39 Dose: 40 mg Bisacodyl (Dulcolax) 10 mg PO DAILYPRN PRN PRN Reason: Constipation Bisacodyl (Dulcolax) 10 mg [place] DAILYPRN PRN PRN Reason: Constipation Calcium Carbonate (Tums) 1,000 mg PO Q4H PRN PRN Reason: Heartburn or Indigestion Carbamide Perox/Anhydrous Glycerin (Debrox 6.5% Otic) 0 drop EA EAR BID [place] Carbamide Perox/Anhydrous Glycerin (Debrox 6.5% Otic) 0 drop EA EAR NOW [facility] Stop: 01/31/18 14:15 Carvedilol (Coreg) 3.125 mg PO BID[facility] Last Admin: 01/31/18 09:32 Dose: 3.125 mg Dextrose/Water (Dextrose 50%) 25 gm SLOW IVP PRN PRN PRN Reason: Hypoglycemia Digoxin (Lanoxin) 0.25 mg PO QAM [facility] Last Admin: 01/31/18 09:31 Dose: 0.25 mg Diphenhydramine HCl (Benadryl) 25 mg PO Q6H PRN PRN Reason: Itching Last Admin: 01/29/18 06:12 Dose: 25 mg Famotidine (Pepcid) 20 mg PO BID [facility] Last Admin: 01/31/18 09:32 Dose: 20 mg Furosemide (Lasix) 40 mg SLOW IVP 0600,1400 [facility] Last Admin: 01/31/18 06:02 Dose: 40 mg Gabapentin (Neurontin) 100 mg PO BID [facility] Last Admin: 01/31/18 09:33 Dose: 100 mg Glipizide (Glucotrol) 10 mg PO DAILY [facility] Last Admin: 01/31/18 09:34 Dose: 10 mg Glucagon (Glucagon) 1 mg IM PRN PRN PRN Reason: Hypoglycemia Guaifenesin (Robitussin Sf) 200 mg PO Q4H PRN PRN Reason: Cough Hydralazine HCl (Apresoline) 10 mg SLOW IVP Q4H PRN PRN Reason: SBP > 180 and HR < 70 Dextrose/Water (D5w) 1,000 mls @ 0 mls/hr IV .Q0M PRN PRN Reason: Hypoglycemia Insulin Human Lispro (Humalog) 0 units SC .MODERATE SLIDING SC PRN PRN Reason: Moderate Correctional Scale Last Admin: 01/30/18 12:11 Dose: 2 unit Insulin Human Lispro (Humalog) 0 units SC .BEDTIME SLIDING SC PRN PRN Reason: Bedtime Correctional Scale Last Admin: 01/29/18 22:09 Dose: 2 unit Levothyroxine Sodium (Synthroid) 25 mcg PO 0600 [facility] Last Admin: 01/31/18 06:02 Dose: 25 mcg Lisinopril (Zestril) 5 mg PO DAILY [facility] Last Admin: 01/31/18 09:36 Dose: 5 mg Loperamide HCl (Imodium) 2 mg PO PRN PRN PRN Reason: Diarrhea/Loose Stools Metformin HCl (Glucophage) 1,000 mg PO BID[facility] Last Admin: 01/31/18 09:32 Dose: 1,000 mg Metolazone (Zaroxolyn) 5 mg PO 1300 [facility] Stop: 01/31/18 15:00 Mineral Oil/White Petrolatum (Eucerin Cream) 0 gm TOP BIDPRN PRN PRN Reason: Dry Skin Nitroglycerin (Nitrostat) 0.4 mg SL Q5MIN PRN PRN Reason: Chest Pain Ondansetron HCl (Zofran Odt) 4 mg PO Q6H PRN PRN Reason: Nausea/Vomiting Ondansetron HCl (Zofran) 4 mg IVP Q6H PRN PRN Reason: Nausea/Vomiting Senna/Docusate Sodium (Senokot S) 2 tab PO BID PRN PRN Reason: Constipation Sodium Chloride ([place] Nasal [place] 0.65%) 0 ml EA NARE QIDPRN PRN PRN Reason: Nasal Congestion Throat Lozenges (Cepastat Lozenges) 1 reggie PO Q2H PRN PRN Reason: Sore Throat Zolpidem Tartrate (Ambien) 5 mg PO HSPRN PRN PRN Reason: Insomnia
[2018-01-31] MEDS: Carbamide Peroxide 6.5% Otic Drops 15 ml Bottle EA EAR SCH (21:24)
[2018-01-31] MEDS: ALPRAZolam 0.25 MG TAB PO PRN (21:25)
[2018-02-01] MEDS: HYDROcodone/Acetaminophen 5/325 mg Tablet PO PRN ×3 (01:31→20:45)
[2018-02-01 06:33] LABS: #Basophils 0.1 thou/uL (0.0-0.2); #Eosinphils 0.2 thou/uL (0.0-0.7); #Lymphocytes 1.1 thou/uL (1.20-3.40); #Monocytes 0.8 thou/uL (0.11-0.59); #Neutrophils 3.7 thou/uL (1.40-6.50); %Eosinophils 2.9 % (0.0-10.0); %Lymphocytes 19.5 % (21.0-51.0); %Neutrophils 63.6 % (42.0-75.0); Mean Corpuscular HGB CONC 32.7 g/dL (32.0-36.0); Mean Platelet Volume 8.7 fL (7.4-10.4); Platelet Count 85 thou/uL (130-400); RBC Distribution Width 12.8 % (11.5-14.5); White Blood Cell (WBC) Count 5.8 thou/uL (4.8-10.8)
[2018-02-01] MEDS: Furosemide 40 MG/4 ML VIAL SLOW IVP SCH ×2 (06:44→14:17)
[2018-02-01] MEDS: Levothyroxine Sodium 25 MCG TAB PO SCH (06:44)
[2018-02-01 07:00] LABS: Anion Gap 13 mmol/L (10-20); BUN (Urea Nitrogen) 34 mg/dL (8.4-25.7); Calc. Creatinine Clearance 81 mL/min (70-130); Calcium 8.9 mg/dL (7.8-10.44); Carbon Dioxide 26 mmol/L (23-31); Chloride 102 mmol/L (98-107); Estimated GFR-MDRD 35; Glucose 130 mg/dL (80-115); Magnesium 1.8 mg/dL (1.6-2.6); Potassium 3.5 mmol/L (3.5-5.1); Sodium 137 mmol/L (136-145)
[2018-02-01] MEDS ORDERED: Sodium Chloride 0.9% 10 ML ONE (09:20)
[2018-02-01] MEDS: glipiZIDE 10 MG TAB PO SCH (09:30)
--- NOTE | 2018-02-01 09:30 | PDOC.CTH ---
<Catalina Glaser - Last Filed: 02/01/18 09:30> Cardiology Progress Note - Subjective The pt seen and examined. No overnight events. No cardiac complaints. - Objective Vital Signs Temp Pulse Resp BP BP Pulse Ox 02/01/18 08:52 73 16 98 02/01/18 08:09 97.7 F 75 18 110/74 95 02/01/18 04:00 97.3 F L 75 16 140/70 96 Admit Weight 232 lb 12.8 oz Weight 328 lb 3.2 oz 01/31/18 02/01/18 02/02/18 06:59 06:59 06:59 Intake Total 1620 990 Output Total 1350 1200 Balance 270 -210 - Physical Examination General/Neuro: alert & oriented x3 Neck: no JVD present Lungs: CTA Heart: other: (irregular) Abdomen: soft Extremities: other: (3+ pitting BLE edema; JONNY wrap) - Telemetry Telemetry Rhythm: Afib - Labs Result Diagrams: 02/01/18 06:24 02/01/18 06:24 Troponin/CKMB Troponin I 0.206 ng/mL (< 0.028) H 01/29/18 02:51 - Assessment/Plan 1. Acute on chronic combined HF - Add Metolazone 5mg x 1 dose this PM; On BBlocker, JONNY, Lasix IV BID. Jonny Wrap to BLE. 2. Afib with RVR - Well controlled HR with Digogixn and Bblocker; on Eliquis. 3. HTN - stable 4. RBBB - stable 5. DM type 2 - DM education given; Dietitian consult 6. NADEEM on Cpap - 7. Hypothyrodism - Levothyroxin was started from this AM by PCP 8. Obese - weight management education given to the pt. SUSAN wang * Echo on 01/29/18 showed EF < 25-30%, dilated LV, mod ERV, mod-severe dilated LA, mod ERA, mild MR and mild TR Review of Systems - Review of Systems Constitutional: reports: no symptoms reported EENTM: reports: no symptoms reported Respiratory: reports: no symptoms reported Cardiac (ROS): reports: no symptoms reported ABD/GI: reports: no symptoms reported : reports: no symptoms reported Musculoskeletal: reports: no symptoms reported <Dallas Silva - Last Filed: 02/01/18 16:30> Cardiology Progress Note - Objective Vital Signs Temp Pulse Resp BP BP Pulse Ox 02/01/18 12:05 98.2 F 71 18 125/74 95 02/01/18 09:32 78 02/01/18 08:52 73 16 98 02/01/18 08:09 97.7 F 75 18 110/74 95 Admit Weight 232 lb 12.8 oz Weight 328 lb 3.2 oz 01/31/18 02/01/18 02/02/18 06:59 06:59 06:59 Intake Total 1620 990 Output Total 1350 1200 Balance 270 -210 - Labs Result Diagrams: 02/01/18 06:24 02/01/18 06:24 Troponin/CKMB Troponin I 0.206 ng/mL (< 0.028) H 01/29/18 02:51 - Assessment/Plan Pt.seen and eval.by me.I agreewith the A/P by the MARKETING PROPOS[employer] SPECIALIST.He has diuresed a small amount. With the renalinsufficiency and decreased EF,he may benefit from dobutamineshort term.Will try for 24-48hrs.
[2018-02-01] MEDS: Apixaban 5 MG TAB PO SCH ×2 (09:31→20:45)
[2018-02-01] MEDS: metFORMIN 500 MG TAB PO SCH ×2 (09:31→17:31)
[2018-02-01] MEDS: Gabapentin 100 MG CAP PO SCH ×2 (09:31→20:45)
[2018-02-01] MEDS: Lisinopril 5 MG TAB PO SCH (09:31)
[2018-02-01] MEDS: Allopurinol 100 MG TAB PO SCH (09:31)
[2018-02-01] MEDS: Carvedilol 3.125 MG TAB PO SCH ×2 (09:32→17:31)
[2018-02-01] MEDS: Digoxin 0.25 MG TAB PO SCH (09:32)
[2018-02-01] MEDS: Famotidine 20 MG TAB PO SCH ×2 (09:33→20:45)
[2018-02-01] MEDS: Carbamide Peroxide 6.5% Otic Drops 15 ml Bottle EA EAR SCH ×2 (09:33→20:48)
[2018-02-01] MEDS ORDERED: ALPRAZolam 0.25 MG TAB PO SCH (12:00)
[2018-02-01] MEDS ORDERED: Metolazone 5 MG TAB PO SCH (16:45)
[2018-02-01] MEDS ORDERED: DOBUTamine 500 mg/250 ml 250 ML IVPB SCH (16:45)
[2018-02-01] MEDS: ALPRAZolam 0.25 MG TAB PO PRN (20:45)
[2018-02-01] MEDS: Atorvastatin Calcium 40 MG TAB PO SCH (20:45)
[2018-02-02] MEDS: HYDROcodone/Acetaminophen 5/325 mg Tablet PO PRN ×3 (03:14→20:00)
--- NOTE | 2018-02-02 05:13 | PDOC.PN ---
- Subjective Encounter Start Date: 02/01/18 Encounter Start Time: 13:00 Patient seen and examined on 02/01 for CHF. SOB +. No CP/Palpitations. No new complaints. No overnight events - Objective Resuscitation Status - Order Detail: 02/01/18 11:34 Resuscitation Status Routine Resuscitation Status: DNAR: NO Resuscitation Discussed with: per MD comment this was discussed with patient Vital Signs & Weight: Vital Signs (12 hours) Temp Pulse Resp BP BP Pulse Ox 02/02/18 04:00 97.6 F 69 20 137/81 95 02/01/18 19:44 97.5 F L 70 18 135/89 94 L Weight Admit Weight 232 lb 12.8 oz Weight 328 lb 3.2 oz I&O: 01/31/18 02/01/18 02/02/18 06:59 06:59 06:59 Intake Total 1620 990 Output Total 1350 1200 Balance 270 -210 Result Diagrams: 02/01/18 06:24 02/01/18 06:24 Additional Labs: Accuchecks 02/01/18 02/01/18 02/01/18 19:50 16:41 10:46 POC Glucose 100 108 166 H 02/01/18 06:04 POC Glucose 121 H EKG Reviewed by me: Yes (Tele Afib) Phys Exam - Physical Examination Constitutional: NAD Respiratory: no wheezing, no rhonchi Bibasilar rales Cardiovascular: no rub, irregular Gastrointestinal: soft, non-tender, positive bowel sounds Musculoskeletal: edema present Dx/Plan - Plan 1. Acute on chronic systolic/diastolic HF 2. Afib with RVR - rate controlled 3. HTN 4. N[place] on CPAP 5. DM type 2 6. Morbid Obesity BMI 48.5/ Elevated troponin due to demand ischemia/ Thrombocytopenia/ CKD 3 PLAN: Cont diuresis AM labs Cont CPAP Cont current meds as below DC Metformin Cont Coreg/Digoxin/Lisinopril Review of Systems - Review of Systems Constitutional: negative: fever, chills, sweats, weakness, malaise, other Gastrointestinal: negative: Nausea, Vomiting, Abdominal Pain, Diarrhea, Constipation, Melena, Hematochezia, Other - Medications/Allergies Allergies/Adverse Reactions: Allergies Allergy/AdvReac Type Severity Reaction Status Date / Time No Known Allergies Allergy Verified 01/29/18 03:22 Medications: Current Medications Acetaminophen (Tylenol) 650 mg PO Q4H PRN PRN Reason: Headache/Fever/Mild Pain (1-3) Hydrocodone Bitart/Acetaminophen ([place] 5/325) 1 tab PO Q4H PRN PRN Reason: Moderate Pain (4-6) Last Admin: 02/02/18 03:14 Dose: 1 tab Albuterol/Ipratropium (Duoneb) 3 ml NEB [id number] PRN PRN Reason: SOB &/or Wheezing Last Admin: 02/01/18 08:52 Dose: 3 ml Allopurinol (Zyloprim) 100 mg PO DAILY [facility] Last Admin: 02/01/18 09:31 Dose: 100 mg Alprazolam (Xanax) 0.25 mg PO HSPRN PRN PRN Reason: Anxiety Last Admin: 02/01/18 20:45 Dose: 0.25 mg Apixaban (Eliquis) 5 mg PO BID [facility] Last Admin: 02/01/18 20:45 Dose: 5 mg Artificial Tears (Tears Renewed 15ml Bottle) 2 drop EA EYE PRN PRN PRN Reason: Dry Eyes Aspirin (Aspirin Chewable) 81 mg PO DAILY [facility] Last Admin: 02/01/18 09:31 Dose: 81 mg Atorvastatin Calcium (Lipitor) 40 mg PO HS [facility] Last Admin: 02/01/18 20:45 Dose: 40 mg Bisacodyl (Dulcolax) 10 mg PO DAILYPRN PRN PRN Reason: Constipation Bisacodyl (Dulcolax) 10 mg [place] DAILYPRN PRN PRN Reason: Constipation Calcium Carbonate (Tums) 1,000 mg PO Q4H PRN PRN Reason: Heartburn or Indigestion Carbamide Perox/Anhydrous Glycerin (Debrox 6.5% Otic) 0 drop EA EAR BID [facility] Last Admin: 02/01/18 20:48 Dose: Not Given Carvedilol (Coreg) 3.125 mg PO BID-[facility] Last Admin: 02/01/18 17:31 Dose: 3.125 mg Dextrose/Water (Dextrose 50%) 25 gm SLOW IVP PRN PRN PRN Reason: Hypoglycemia Digoxin (Lanoxin) 0.25 mg PO QAM [facility] Last Admin: 02/01/18 09:32 Dose: 0.25 mg Diphenhydramine HCl (Benadryl) 25 mg PO Q6H PRN PRN Reason: Itching Last Admin: 01/29/18 06:12 Dose: 25 mg Famotidine (Pepcid) 20 mg PO BID [facility] Last Admin: 02/01/18 20:45 Dose: 20 mg Furosemide (Lasix) 40 mg SLOW IVP 0600,1400 [facility] Last Admin: 02/01/18 14:17 Dose: 40 mg Gabapentin (Neurontin) 100 mg PO BID [facility] Last Admin: 02/01/18 20:45 Dose: 100 mg Glipizide (Glucotrol) 10 mg PO DAILY [facility] Last Admin: 02/01/18 09:30 Dose: 10 mg Glucagon (Glucagon) 1 mg IM PRN PRN PRN Reason: Hypoglycemia Guaifenesin (Robitussin Sf) 200 mg PO Q4H PRN PRN Reason: Cough Hydralazine HCl (Apresoline) 10 mg SLOW IVP Q4H PRN PRN Reason: SBP > 180 and HR < 70 Dextrose/Water (D5w) 1,000 mls @ 0 mls/hr IV .Q0M PRN PRN Reason: Hypoglycemia Dobutamine HCl/Dextrose (Dobutamine 500 Mg/250 Ml) 250 mls @ 22.33 mls/hr IVPB INF [facility]; Protocol Insulin Human Lispro (Humalog) 0 units SC .MODERATE SLIDING SC PRN PRN Reason: Moderate Correctional Scale Last Admin: 01/31/18 13:24 Dose: 2 unit Insulin Human Lispro (Humalog) 0 units SC .BEDTIME SLIDING SC PRN PRN Reason: Bedtime Correctional Scale Last Admin: 01/29/18 22:09 Dose: 2 unit Levothyroxine Sodium (Synthroid) 25 mcg PO 0600 [facility] Last Admin: 02/01/18 06:44 Dose: 25 mcg Lisinopril (Zestril) 5 mg PO DAILY [facility] Last Admin: 02/01/18 09:31 Dose: 5 mg Loperamide HCl (Imodium) 2 mg PO PRN PRN PRN Reason: Diarrhea/Loose Stools Metformin HCl (Glucophage) 1,000 mg PO BID-[facility] Last Admin: 02/01/18 17:31 Dose: 1,000 mg Mineral Oil/White Petrolatum (Eucerin Cream) 0 gm TOP BIDPRN PRN PRN Reason: Dry Skin Nitroglycerin (Nitrostat) 0.4 mg SL Q5MIN PRN PRN Reason: Chest Pain Ondansetron HCl (Zofran Odt) 4 mg PO Q6H PRN PRN Reason: Nausea/Vomiting Ondansetron HCl (Zofran) 4 mg IVP Q6H PRN PRN Reason: Nausea/Vomiting Senna/Docusate Sodium (Senokot S) 2 tab PO BID PRN PRN Reason: Constipation Sodium Chloride ([place] Nasal [place] 0.65%) 0 ml EA NARE QIDPRN PRN PRN Reason: Nasal Congestion Throat Lozenges (Cepastat Lozenges) 1 reggie PO Q2H PRN PRN Reason: Sore Throat Zolpidem Tartrate (Ambien) 5 mg PO HSPRN PRN PRN Reason: Insomnia
[2018-02-02] MEDS: Levothyroxine Sodium 25 MCG TAB PO SCH (06:05)
[2018-02-02] MEDS: Furosemide 40 MG/4 ML VIAL SLOW IVP SCH ×2 (06:05→13:35)
[2018-02-02] MEDS: Digoxin 0.25 MG TAB PO SCH (08:10)
[2018-02-02] MEDS: Famotidine 20 MG TAB PO SCH ×2 (08:10→20:01)
[2018-02-02] MEDS: Gabapentin 100 MG CAP PO SCH ×2 (08:10→20:01)
[2018-02-02] MEDS: Carvedilol 3.125 MG TAB PO SCH ×2 (08:10→17:29)
[2018-02-02] MEDS: Allopurinol 100 MG TAB PO SCH (08:11)
[2018-02-02] MEDS: diphenhydrAMINE 25 MG CAP PO PRN (08:11)
[2018-02-02] MEDS: Apixaban 5 MG TAB PO SCH ×2 (08:11→20:00)
[2018-02-02] MEDS: glipiZIDE 10 MG TAB PO SCH (08:11)
[2018-02-02] MEDS: Lisinopril 5 MG TAB PO SCH (08:11)
--- NOTE | 2018-02-02 10:28 | PDOC.CTH ---
<Catalina Glaser - Last Filed: 02/02/18 10:28> Cardiology Progress Note - Subjective The pt seen and examined. No overnight events. No cardiac complaints. Dobutamin was ordered yesterday; not yet started at this moment since the pt refusing checking his frequent VS. - Objective Vital Signs Temp Pulse Resp BP BP Pulse Ox 02/02/18 08:10 88 02/02/18 07:48 98 F 91 18 130/84 94 L 02/02/18 04:00 97.6 F 69 20 137/81 95 Admit Weight 232 lb 12.8 oz Weight 315 lb 02/01/18 02/02/18 02/03/18 06:59 06:59 06:59 Intake Total 990 1485 Output Total 1200 2775 Balance -210 -1290 - Physical Examination General/Neuro: alert & oriented x3 Neck: no JVD present Lungs: other: (diminished at bases) Heart: other: (irregular) Abdomen: soft Extremities: other: (4+pitting BLE edema) - Telemetry Telemetry Rhythm: Afib 80s - Labs Result Diagrams: 02/01/18 06:24 02/01/18 06:24 Troponin/CKMB Troponin I 0.206 ng/mL (< 0.028) H 01/29/18 02:51 - Assessment/Plan 1. Acute on chronic combined HF - Dobutamin was ordered yesterday; not yet started at this moment since the pt refusing checking his frequent VS. He voided well after yesterday PM Metolazone. Add another Metolazone 5mg x 1 dose this PM again; On BBlocker, JONNY, Lasix IV BID. Jonny Wrap to BLE. 2. Chronic Afib with RVR - Well controlled HR with Digogixn and Bblocker; on Eliquis. 3. HTN - stable 4. RBBB - stable 5. DM type 2 - DM education given; Dietitian consult 6. NADE[place] on Cpap - 7. Hypothyrodism - Levothyroxin was started from this AM by PCP 8. Obese - weight management education given to the pt. MAR reviewed * Echo on 01/29/18 showed EF < 25-30%, dilated LV, mod ERV, mod-severe dilated LA, mod ERA, mild MR and mild TR <Dallas Silva - Last Filed: 02/02/18 19:53> Cardiology Progress Note - Objective Vital Signs Temp Pulse Resp BP Pulse Ox 02/02/18 16:24 98 F 68 16 124/70 94 L 02/02/18 12:33 98.2 F 78 18 131/74 95 02/02/18 08:10 88 Admit Weight 323 lb 12.8 oz Weight 315 lb 02/01/18 02/02/18 02/03/18 06:59 06:59 06:59 Intake Total 990 1485 625 Output Total 1200 2775 1750 Balance -210 -7041 -1125 - Labs Result Diagrams: 02/02/18 11:17 02/02/18 11:17 Troponin/CKMB Troponin I 0.206 ng/mL (< 0.028) H 01/29/18 02:51 - Assessment/Plan Pt. seen and eval. by me. He feels a little less SOB but still has edema/ cellulitis. He refused the dobutamine yesterday. He is diuresing some with the zaroxolyn. Chest clear.irreg. Irreg.
[2018-02-02 11:33] LABS: #Eosinphils 0.2 thou/uL (0.0-0.7); #Monocytes 0.8 thou/uL (0.11-0.59); #Neutrophils 3.1 thou/uL (1.40-6.50); %Basophils 0.3 % (0.0-1.0); %Eosinophils 4.3 % (0.0-10.0); %Lymphocytes 20.2 % (21.0-51.0); %Monocytes 14.8 % (0.0-10.0); %Neutrophils 60.4 % (42.0-75.0); Mean Corpuscular HGB CONC 32.9 g/dL (32.0-36.0); Mean Corpuscular Hemoglobin 31.1 pg (27.0-31.0); Mean Corpuscular Volume 94.7 fL (78.0-98.0); Mean Platelet Volume 8.7 fL (7.4-10.4); Platelet Count 92 thou/uL (130-400); RBC Distribution Width 12.7 % (11.5-14.5); Red Blood Cell (RBC) Count 4.19 mill/uL (4.70-6.10); White Blood Cell (WBC) Count 5.2 thou/uL (4.8-10.8)
[2018-02-02 11:57] LABS: Anion Gap 14 mmol/L (10-20); BUN (Urea Nitrogen) 36 mg/dL (8.4-25.7); Calc. Creatinine Clearance 85 mL/min (70-130); Calcium 9.4 mg/dL (7.8-10.44); Carbon Dioxide 30 mmol/L (23-31); Chloride 99 mmol/L (98-107); Estimated GFR-MDRD 39; Glucose 144 mg/dL (80-115); Magnesium 1.5 mg/dL (1.6-2.6); Potassium 3.1 mmol/L (3.5-5.1); Sodium 140 mmol/L (136-145)
[2018-02-02] MEDS ORDERED: Potassium Chloride 20 MEQ TAB PO SCH ×3 (12:00→17:00)
[2018-02-02] MEDS ORDERED: Magnesium 2 GM/50 ML 2 GM in Premix Bag 1 BAG IVPB SCH (12:30)
[2018-02-02] MEDS ORDERED: Metolazone 5 MG TAB PO SCH (13:00)
--- NOTE | 2018-02-02 13:58 | PDOC.PN ---
- Subjective Encounter Start Date: 02/02/18 Encounter Start Time: 10:00 Patient seen and examined for CHF. SOB improving. No CP/Palpitations. No new complaints. No overnight events - Objective Resuscitation Status - Order Detail: 02/01/18 11:34 Resuscitation Status Routine Resuscitation Status: DNAR: NO Resuscitation Discussed with: per comment this was discussed with patient MAR Reviewed: Yes Vital Signs & Weight: Vital Signs (12 hours) Temp Pulse Resp BP BP BP Pulse Ox 02/02/18 12:33 98.2 F 78 18 131/74 95 02/02/18 08:10 88 02/02/18 07:48 98 F 91 18 130/84 94 L 02/02/18 04:00 97.6 F 69 20 137/81 95 Weight Admit Weight 232 lb 12.8 oz Weight 315 lb I&O: 02/01/18 02/02/18 02/03/18 06:59 06:59 06:59 Intake Total 990 1485 Output Total 1200 2775 Balance -210 -1290 Result Diagrams: 02/02/18 11:17 02/02/18 11:17 Additional Labs: Accuchecks 02/02/18 02/02/18 02/01/18 11:14 05:54 19:50 POC Glucose 146 H 161 H 100 02/01/18 16:41 POC Glucose 108 EKG Reviewed by me: Yes (Tele Afib) Phys Exam - Physical Examination Constitutional: NAD Respiratory: no wheezing, no rhonchi Cardiovascular: RRR, no rub Gastrointestinal: soft, non-tender, positive bowel sounds Musculoskeletal: edema present Neurological: moves all 4 limbs Dx/Plan - Plan 1. Acute on chronic systolic/diastolic HF - improving 2. Afib with RVR - rate controlled 3. HTN 4. [place] on CPAP 5. DM type 2 6. Hypokalemia/Hypomagnessemia 7. Depression - denies suicidal ideation 8. Morbid Obesity/ Elevated troponin due to demand ischemia/Thrombocytopenia/ CKD 3 PLAN: Cont Lasix/Metolazone AM labs Cont CPAP HS Cont current meds as below Cont Coreg/Digoxin/Lisinopril Replace electrolytes Review of Systems - Review of Systems Respiratory: SOB with Excertion. negative: Cough, Dry, Shortness of Breath, Hemoptysis, Pleuritic Pain, Sputum, Wheezing Cardiovascular: negative: chest pain, palpitations, orthopnea, paroxysmal nocturnal dyspnea, edema, light headedness, other Gastrointestinal: negative: Nausea, Vomiting, Abdominal Pain, Diarrhea, Constipation, Melena, Hematochezia, Other - Medications/Allergies Allergies/Adverse Reactions: Allergies Allergy/AdvReac Type Severity Reaction Status Date / Time No Known Allergies Allergy Verified 01/29/18 03:22 Medications: Current Medications Acetaminophen (Tylenol) 650 mg PO Q4H PRN PRN Reason: Headache/Fever/Mild Pain (1-3) Hydrocodone Bitart/Acetaminophen ([place] 5/325) 1 tab PO Q4H PRN PRN Reason: Moderate Pain (4-6) Last Admin: 02/02/18 08:11 Dose: 1 tab Albuterol/Ipratropium (Duoneb) 3 ml NEB [id number] PRN PRN Reason: SOB &/or Wheezing Last Admin: 02/01/18 08:52 Dose: 3 ml Allopurinol (Zyloprim) 100 mg PO DAILY [facility] Last Admin: 02/02/18 08:11 Dose: 100 mg Alprazolam (Xanax) 0.25 mg PO HSPRN PRN PRN Reason: Anxiety Last Admin: 02/01/18 20:45 Dose: 0.25 mg Alprazolam (Xanax) 0.25 mg PO DAILYPRN PRN PRN Reason: Anxiety Apixaban (Eliquis) 5 mg PO BID [facility] Last Admin: 02/02/18 08:11 Dose: 5 mg Artificial Tears (Tears Renewed 15ml Bottle) 2 drop EA EYE PRN PRN PRN Reason: Dry Eyes Aspirin (Aspirin Chewable) 81 mg PO DAILY [facility] Last Admin: 02/02/18 08:11 Dose: 81 mg Atorvastatin Calcium (Lipitor) 40 mg PO HS [facility] Last Admin: 02/01/18 20:45 Dose: 40 mg Bisacodyl (Dulcolax) 10 mg PO DAILYPRN PRN PRN Reason: Constipation Bisacodyl (Dulcolax) 10 mg [place] DAILYPRN PRN PRN Reason: Constipation Calcium Carbonate (Tums) 1,000 mg PO Q4H PRN PRN Reason: Heartburn or Indigestion Carvedilol (Coreg) 3.125 mg PO BID-[facility] Last Admin: 02/02/18 08:10 Dose: 3.125 mg Dextrose/Water (Dextrose 50%) 25 gm SLOW IVP PRN PRN PRN Reason: Hypoglycemia Digoxin (Lanoxin) 0.25 mg PO QAM [facility] Last Admin: 02/02/18 08:10 Dose: 0.25 mg Diphenhydramine HCl (Benadryl) 25 mg PO Q6H PRN PRN Reason: Itching Last Admin: 02/02/18 08:11 Dose: 25 mg Famotidine (Pepcid) 20 mg PO BID [facility] Last Admin: 02/02/18 08:10 Dose: 20 mg Furosemide (Lasix) 40 mg SLOW IVP 0600,1400 [facility] Last Admin: 02/02/18 13:35 Dose: 40 mg Gabapentin (Neurontin) 100 mg PO BID [facility] Last Admin: 02/02/18 08:10 Dose: 100 mg Glipizide (Glucotrol) 10 mg PO DAILY [facility] Last Admin: 02/02/18 08:11 Dose: 10 mg Glucagon (Glucagon) 1 mg IM PRN PRN PRN Reason: Hypoglycemia Guaifenesin (Robitussin Sf) 200 mg PO Q4H PRN PRN Reason: Cough Hydralazine HCl (Apresoline) 10 mg SLOW IVP Q4H PRN PRN Reason: SBP > 180 and HR < 70 Dextrose/Water (D5w) 1,000 mls @ 0 mls/hr IV .Q0M PRN PRN Reason: Hypoglycemia Dobutamine HCl/Dextrose (Dobutamine 500 Mg/250 Ml) 250 mls @ 22.33 mls/hr IVPB INF [facility]; Protocol Magnesium Sulfate 2 gm/ Device 50 mls @ 48.077 mls/hr IVPB NOW [facility] Stop: 02/02/18 14:30 Last Admin: 02/02/18 13:34 Dose: 50 mls Insulin Human Lispro (Humalog) 0 units SC .MODERATE SLIDING SC PRN PRN Reason: Moderate Correctional Scale Last Admin: 01/31/18 13:24 Dose: 2 unit Insulin Human Lispro (Humalog) 0 units SC .BEDTIME SLIDING SC PRN PRN Reason: Bedtime Correctional Scale Last Admin: 01/29/18 22:09 Dose: 2 unit Levothyroxine Sodium (Synthroid) 25 mcg PO 0600 [facility] Last Admin: 02/02/18 06:05 Dose: 25 mcg Lisinopril (Zestril) 5 mg PO DAILY [facility] Last Admin: 02/02/18 08:11 Dose: 5 mg Loperamide HCl (Imodium) 2 mg PO PRN PRN PRN Reason: Diarrhea/Loose Stools Magnesium Chloride (Slow-Mag) 64 mg PO BID [facility] Metolazone (Zaroxolyn) 5 mg PO 1300 [facility] Stop: 02/02/18 15:00 Last Admin: 02/02/18 13:35 Dose: 5 mg Mineral Oil/White Petrolatum (Eucerin Cream) 0 gm TOP BIDPRN PRN PRN Reason: Dry Skin Nitroglycerin (Nitrostat) 0.4 mg SL Q5MIN PRN PRN Reason: Chest Pain Ondansetron HCl (Zofran Odt) 4 mg PO Q6H PRN PRN Reason: Nausea/Vomiting Ondansetron HCl (Zofran) 4 mg IVP Q6H PRN PRN Reason: Nausea/Vomiting Potassium Chloride (K-Dur) 20 meq PO NOW [facility] Stop: 02/02/18 14:00 Last Admin: 02/02/18 13:35 Dose: 20 meq Potassium Chloride (K-Dur) 40 meq PO 1700 [facility] Stop: 02/02/18 17:01 Senna/Docusate Sodium (Senokot S) 2 tab PO BID PRN PRN Reason: Constipation Sodium Chloride ([place] Nasal [place] 0.65%) 0 ml EA NARE QIDPRN PRN PRN Reason: Nasal Congestion Throat Lozenges (Cepastat Lozenges) 1 reggie PO Q2H PRN PRN Reason: Sore Throat Zolpidem Tartrate (Ambien) 5 mg PO HSPRN PRN PRN Reason: Insomnia
--- NOTE | 2018-02-02 18:39 | PDOC.EVN ---
Event Note - Event Note Event Note: Discussed with patient - He denies any suicidal ideation. Full code per patient request.
[2018-02-02] MEDS: ALPRAZolam 0.25 MG TAB PO PRN (20:00)
[2018-02-02] MEDS: Atorvastatin Calcium 40 MG TAB PO SCH (20:01)
[2018-02-02] MEDS: Magnesium Chloride 64 MG TAB PO SCH (20:02)
[2018-02-03] MEDS: HYDROcodone/Acetaminophen 5/325 mg Tablet PO PRN ×5 (00:25→20:32)
[2018-02-03] MEDS: Zolpidem Tartrate 5 MG TAB PO PRN ×2 (00:29→20:32)
[2018-02-03] MEDS: Levothyroxine Sodium 25 MCG TAB PO SCH (05:51)
[2018-02-03] MEDS: Furosemide 40 MG/4 ML VIAL SLOW IVP SCH ×2 (05:51→15:15)
[2018-02-03 06:29] LABS: Anion Gap 12 mmol/L (10-20); BUN (Urea Nitrogen) 37 mg/dL (8.4-25.7); Calc. Creatinine Clearance 85 mL/min (70-130); Calcium 9.6 mg/dL (7.8-10.44); Carbon Dioxide 34 mmol/L (23-31); Chloride 98 mmol/L (98-107); Estimated GFR-MDRD 40; Glucose 181 mg/dL (80-115); Magnesium 1.6 mg/dL (1.6-2.6); Potassium 3.5 mmol/L (3.5-5.1); Sodium 140 mmol/L (136-145)
[2018-02-03] MEDS ORDERED: Magnesium 2 GM/50 ML 2 GM in Premix Bag 1 BAG IVPB SCH (07:30)
[2018-02-03 07:55] LABS: Band 5 % (5-11); Eosinophils 7 % (0-10); Hemoglobin 12.9 g/dL (14.0-18.0); Lymphocytes 20 % (21-51); MDiff Complete? YES; Mean Corpuscular HGB CONC 33.1 g/dL (32.0-36.0); Mean Corpuscular Hemoglobin 31.6 pg (27.0-31.0); Mean Corpuscular Volume 95.5 fL (78.0-98.0); Mean Platelet Volume 8.7 fL (7.4-10.4); Monocytes 11 % (0-10); Neutrophil 57 % (42-75); PLT Morphology Comment Appears Decreased; Platelet Count 85 thou/uL (130-400); RBC Distribution Width 12.8 % (11.5-14.5); RBC Morphology Normal; Red Blood Cell (RBC) Count 4.06 mill/uL (4.70-6.10)
[2018-02-03] MEDS ORDERED: Potassium Chloride 20 MEQ TAB PO SCH (08:00)
[2018-02-03] MEDS: Carvedilol 3.125 MG TAB PO SCH ×2 (10:18→16:35)
[2018-02-03] MEDS: Apixaban 5 MG TAB PO SCH ×2 (10:19→20:36)
[2018-02-03] MEDS: Digoxin 0.25 MG TAB PO SCH (10:19)
[2018-02-03] MEDS: Metolazone 5 MG TAB PO SCH (10:19)
[2018-02-03] MEDS: Allopurinol 100 MG TAB PO SCH (10:19)
[2018-02-03] MEDS: Magnesium Chloride 64 MG TAB PO SCH ×2 (10:20→20:32)
[2018-02-03] MEDS: Famotidine 20 MG TAB PO SCH ×2 (10:20→20:36)
[2018-02-03] MEDS: Lisinopril 5 MG TAB PO SCH (10:20)
[2018-02-03] MEDS: Gabapentin 100 MG CAP PO SCH ×2 (10:20→20:33)
[2018-02-03] MEDS: glipiZIDE 10 MG TAB PO SCH (10:20)
[2018-02-03] MEDS: ALPRAZolam 0.25 MG TAB PO PRN ×2 (10:33→20:32)
--- NOTE | 2018-02-03 12:34 | PDOC.CTH ---
<Catalina Glaser - Last Filed: 02/03/18 12:34> Cardiology Progress Note - Subjective The pt seen and examined. No overnight events. No cardiac complaints. - Objective Vital Signs Temp Pulse Resp BP BP Pulse Ox 02/03/18 10:20 70 02/03/18 10:19 70 02/03/18 08:27 97.6 F 70 18 161/92 H 93 L 02/03/18 04:00 97.0 F L 78 20 124/95 H 100 Admit Weight 323 lb 12.8 oz Weight 309 lb 9.6 oz 02/02/18 02/03/18 02/04/18 06:59 06:59 06:59 Intake Total 1485 1025 Output Total 2775 3500 Balance -1290 -2475 - Physical Examination General/Neuro: alert & oriented x3 Neck: no JVD present Lungs: other: (diminished at bases) Heart: other: (irregular) Abdomen: soft Extremities: other: (4+ pitting BLE) - Telemetry Telemetry Rhythm: Afib 60-70s - Labs Result Diagrams: 02/03/18 05:38 02/03/18 05:38 Troponin/CKMB Troponin I 0.206 ng/mL (< 0.028) H 01/29/18 02:51 - Assessment/Plan 1. Acute on chronic combined HF - He responded to Metolazone well. On BBlocker , JONNY, Lasix IV BID. Jonyn Wrap to BLE. 2. Chronic Afib with RVR - Well controlled HR with Digogixn and Bblocker; on Eliquis. 3. HTN - stable 4. RBBB - stable 5. DM type 2 - DM education given; Dietitian consult 6. NADE[place] on Cpap - Cpap @ HS 7. Hypothyrodism - Levothyroxin was started from this AM by PCP 8. Obese - weight management education given to the pt. MAR reviewed * Echo on 01/29/18 showed EF < 25-30%, dilated LV, mod ERV, mod-severe dilated LA, mod ERA, mild MR and mild TR Review of Systems - Review of Systems Constitutional: reports: no symptoms reported EENTM: reports: no symptoms reported Respiratory: reports: no symptoms reported Cardiac (ROS): reports: no symptoms reported ABD/GI: reports: no symptoms reported : reports: no symptoms reported Musculoskeletal: reports: no symptoms reported Skin: reports: no symptoms reported <Dallas Silva - Last Filed: 02/03/18 17:36> Cardiology Progress Note - Objective Vital Signs Temp Pulse Resp BP BP Pulse Ox 02/03/18 16:22 98.2 F 70 18 140/76 92 L 02/03/18 12:30 64 18 131/75 93 L 02/03/18 10:20 70 02/03/18 10:19 70 02/03/18 08:27 97.6 F 70 18 161/92 H 93 L Admit Weight 323 lb 12.8 oz Weight 309 lb 9.6 oz 02/02/18 02/03/18 02/04/18 06:59 06:59 06:59 Intake Total 1485 1025 Output Total 2775 3500 600 Balance -8632 -2443 -600 - Labs Result Diagrams: 02/03/18 05:38 02/03/18 05:38 Troponin/CKMB Troponin I 0.206 ng/mL (< 0.028) H 01/29/18 02:51 - Assessment/Plan pt. seen and eval. by me. I agree with the A/P by the TREATMENT MANAGER.Slowly diuresing. Refused dobutamine.
--- NOTE | 2018-02-03 12:52 | PDOC.PN ---
- Subjective Encounter Start Date: 02/03/18 Encounter Start Time: 10:00 Patient seen and examined for CHF. No new complaints. SOB improving. No overnight events - Objective Resuscitation Status - Order Detail: 02/02/18 18:35 Resuscitation Status Routine Resuscitation Status: FULL: Full Resuscitation Discussed with: confirmed with patient MAR Reviewed: Yes Vital Signs & Weight: Vital Signs (12 hours) Temp Pulse Resp BP BP Pulse Ox 02/03/18 10:20 70 02/03/18 10:19 70 02/03/18 08:27 97.6 F 70 18 161/92 H 93 L 02/03/18 04:00 97.0 F L 78 20 124/95 H 100 Weight Admit Weight 323 lb 12.8 oz Weight 309 lb 9.6 oz I&O: 02/02/18 02/03/18 02/04/18 06:59 06:59 06:59 Intake Total 1485 1025 Output Total 2775 3500 Balance -1290 -2475 Result Diagrams: 02/03/18 05:38 02/03/18 05:38 Additional Labs: Accuchecks 02/03/18 02/02/18 02/02/18 05:50 20:50 16:59 POC Glucose 180 H 182 H 161 H Phys Exam - Physical Examination Constitutional: NAD Respiratory: no wheezing, no rhonchi Bibasilar rales Cardiovascular: no rub, irregular Gastrointestinal: soft, non-tender, positive bowel sounds Musculoskeletal: edema present Neurological: moves all 4 limbs Dx/Plan - Plan 1. Acute on chronic systolic/diastolic HF - improving 2. Afib with RVR - rate controlled 3. HTN 4. N[place] on CPAP 5. DM type 2 6. Hypokalemia/Hypomagnessemia 7. Depression - denies suicidal ideation 8. Morbid Obesity/ Elevated troponin due to demand ischemia/Thrombocytopenia/ CKD 3 PLAN: Cont IV Lasix with Metolazone AM labs Cont CPAP HS Cont current meds as below Cont Coreg/Digoxin/Lisinopril Magnessium 2 gm IVPB x 1 Patient understands the risk of anticoagulation. Review of Systems - Review of Systems Respiratory: SOB with Excertion. negative: Cough, Dry, Shortness of Breath, Hemoptysis, Pleuritic Pain, Sputum, Wheezing Cardiovascular: negative: chest pain, palpitations, orthopnea, paroxysmal nocturnal dyspnea, edema, light headedness, other - Medications/Allergies Allergies/Adverse Reactions: Allergies Allergy/AdvReac Type Severity Reaction Status Date / Time No Known Allergies Allergy Verified 01/29/18 03:22 Medications: Current Medications Acetaminophen (Tylenol) 650 mg PO Q4H PRN PRN Reason: Headache/Fever/Mild Pain (1-3) Hydrocodone Bitart/Acetaminophen ([place] 5/325) 1 tab PO Q4H PRN PRN Reason: Moderate Pain (4-6) Last Admin: 02/03/18 10:32 Dose: 1 tab Albuterol/Ipratropium (Duoneb) 3 ml NEB [id number] PRN PRN Reason: SOB &/or Wheezing Last Admin: 02/01/18 08:52 Dose: 3 ml Allopurinol (Zyloprim) 100 mg PO DAILY [facility] Last Admin: 02/03/18 10:19 Dose: 100 mg Alprazolam (Xanax) 0.25 mg PO HSPRN PRN PRN Reason: Anxiety Last Admin: 02/02/18 20:00 Dose: 0.25 mg Alprazolam (Xanax) 0.25 mg PO DAILYPRN PRN PRN Reason: Anxiety Last Admin: 02/03/18 10:33 Dose: 0.25 mg Apixaban (Eliquis) 5 mg PO BID [facility] Last Admin: 02/03/18 10:19 Dose: 5 mg Artificial Tears (Tears Renewed 15ml Bottle) 2 drop EA EYE PRN PRN PRN Reason: Dry Eyes Aspirin (Aspirin Chewable) 81 mg PO DAILY [facility] Last Admin: 02/03/18 10:19 Dose: 81 mg Atorvastatin Calcium (Lipitor) 40 mg PO HS [facility] Last Admin: 02/02/18 20:01 Dose: 40 mg Bisacodyl (Dulcolax) 10 mg PO DAILYPRN PRN PRN Reason: Constipation Bisacodyl (Dulcolax) 10 mg [place] DAILYPRN PRN PRN Reason: Constipation Calcium Carbonate (Tums) 1,000 mg PO Q4H PRN PRN Reason: Heartburn or Indigestion Carvedilol (Coreg) 3.125 mg PO BID[facility] Last Admin: 02/03/18 10:18 Dose: 3.125 mg Dextrose/Water (Dextrose 50%) 25 gm SLOW IVP PRN PRN PRN Reason: Hypoglycemia Digoxin (Lanoxin) 0.25 mg PO QAM [facility] Last Admin: 02/03/18 10:19 Dose: 0.25 mg Diphenhydramine HCl (Benadryl) 25 mg PO Q6H PRN PRN Reason: Itching Last Admin: 02/02/18 08:11 Dose: 25 mg Famotidine (Pepcid) 20 mg PO BID [facility] Last Admin: 02/03/18 10:20 Dose: 20 mg Furosemide (Lasix) 40 mg SLOW IVP 0600,1400 [facility] Last Admin: 02/03/18 05:51 Dose: 40 mg Gabapentin (Neurontin) 100 mg PO BID [facility] Last Admin: 02/03/18 10:20 Dose: 100 mg Glipizide (Glucotrol) 10 mg PO DAILY [facility] Last Admin: 02/03/18 10:20 Dose: 10 mg Glucagon (Glucagon) 1 mg IM PRN PRN PRN Reason: Hypoglycemia Guaifenesin (Robitussin Sf) 200 mg PO Q4H PRN PRN Reason: Cough Hydralazine HCl (Apresoline) 10 mg SLOW IVP Q4H PRN PRN Reason: SBP > 180 and HR < 70 Dextrose/Water (D5w) 1,000 mls @ 0 mls/hr IV .Q0M PRN PRN Reason: Hypoglycemia Dobutamine HCl/Dextrose (Dobutamine 500 Mg/250 Ml) 250 mls @ 22.33 mls/hr IVPB INF [facility]; Protocol Insulin Human Lispro (Humalog) 0 units [place] .MODERATE SLIDING SC PRN PRN Reason: Moderate Correctional Scale Last Admin: 01/31/18 13:24 Dose: 2 unit Insulin Human Lispro (Humalog) 0 units SC .BEDTIME SLIDING SC PRN PRN Reason: Bedtime Correctional Scale Last Admin: 01/29/18 22:09 Dose: 2 unit Levothyroxine Sodium (Synthroid) 25 mcg PO 0600 [facility] Last Admin: 02/03/18 05:51 Dose: 25 mcg Lisinopril (Zestril) 5 mg PO DAILY [facility] Last Admin: 02/03/18 10:20 Dose: 5 mg Loperamide HCl (Imodium) 2 mg PO PRN PRN PRN Reason: Diarrhea/Loose Stools Magnesium Chloride (Slow-Mag) 64 mg PO BID [facility] Last Admin: 02/03/18 10:20 Dose: 64 mg Metolazone (Zaroxolyn) 5 mg PO 0830 [facility] Last Admin: 02/03/18 10:19 Dose: 5 mg Mineral Oil/White Petrolatum (Eucerin Cream) 0 gm TOP BIDPRN PRN PRN Reason: Dry Skin Nitroglycerin (Nitrostat) 0.4 mg SL Q5MIN PRN PRN Reason: Chest Pain Ondansetron HCl (Zofran Odt) 4 mg PO Q6H PRN PRN Reason: Nausea/Vomiting Ondansetron HCl (Zofran) 4 mg IVP Q6H PRN PRN Reason: Nausea/Vomiting Potassium Chloride (K-Dur) 20 meq PO QAM-WM [facility] Last Admin: 02/03/18 10:18 Dose: 20 meq Senna/Docusate Sodium (Senokot S) 2 tab PO BID PRN PRN Reason: Constipation Sodium Chloride ([place] Nasal [place] 0.65%) 0 ml EA NARE QIDPRN PRN PRN Reason: Nasal Congestion Sodium Chloride (Flush - Normal Saline) 10 ml IVF Q12HR [facility] Last Admin: 02/03/18 10:21 Dose: 10 ml Sodium Chloride (Flush - Normal Saline) 10 ml IVF PRN PRN PRN Reason: Saline Flush Throat Lozenges (Cepastat Lozenges) 1 reggie PO Q2H PRN PRN Reason: Sore Throat Zolpidem Tartrate (Ambien) 5 mg PO HSPRN PRN PRN Reason: Insomnia Last Admin: 02/03/18 00:29 Dose: 5 mg
[2018-02-03] MEDS: HumaLOG 300 UNITS/3 ML VIAL SC PRN (18:13)
[2018-02-03] MEDS: Atorvastatin Calcium 40 MG TAB PO SCH (20:32)
[2018-02-04] MEDS: HYDROcodone/Acetaminophen 5/325 mg Tablet PO PRN ×4 (02:11→20:18)
[2018-02-04 05:50] LABS: Anion Gap 12 mmol/L (10-20); BUN (Urea Nitrogen) 34 mg/dL (8.4-25.7); Calc. Creatinine Clearance 96 mL/min (70-130); Calcium 9.5 mg/dL (7.8-10.44); Carbon Dioxide 33 mmol/L (23-31); Chloride 95 mmol/L (98-107); Estimated GFR-MDRD 46; Glucose 181 mg/dL (80-115); Magnesium 1.4 mg/dL (1.6-2.6); Potassium 3.1 mmol/L (3.5-5.1); Sodium 137 mmol/L (136-145)
[2018-02-04 05:52] LABS: Hemoglobin 12.9 g/dL (14.0-18.0); Platelet Count 88 thou/uL (130-400)
[2018-02-04] MEDS: Furosemide 40 MG/4 ML VIAL SLOW IVP SCH ×2 (06:10→14:04)
[2018-02-04] MEDS: Levothyroxine Sodium 25 MCG TAB PO SCH (06:10)
[2018-02-04] MEDS ORDERED: Magnesium Sulfate 2 GM in Sodium Chloride 0.9% 100 ML IVPB SCH (07:45)
[2018-02-04] MEDS ORDERED: Magnesium 2 GM/50 ML 2 GM in Premix Bag 1 BAG IVPB SCH (08:45)
[2018-02-04] MEDS: Allopurinol 100 MG TAB PO SCH (09:17)
[2018-02-04] MEDS: Digoxin 0.25 MG TAB PO SCH (09:18)
[2018-02-04] MEDS: Famotidine 20 MG TAB PO SCH ×2 (09:18→20:18)
[2018-02-04] MEDS: Lisinopril 5 MG TAB PO SCH (09:19)
[2018-02-04] MEDS: glipiZIDE 10 MG TAB PO SCH (09:19)
[2018-02-04] MEDS: Apixaban 5 MG TAB PO SCH ×2 (09:19→20:18)
[2018-02-04] MEDS: Metolazone 5 MG TAB PO SCH (09:20)
[2018-02-04] MEDS: Carvedilol 3.125 MG TAB PO SCH ×2 (09:20→16:50)
[2018-02-04] MEDS: Gabapentin 100 MG CAP PO SCH ×2 (09:20→20:18)
[2018-02-04] MEDS: ALPRAZolam 0.25 MG TAB PO PRN (09:22)
[2018-02-04] MEDS: Magnesium Chloride 64 MG TAB PO SCH ×2 (09:23→20:19)
[2018-02-04] MEDS: HumaLOG 300 UNITS/3 ML VIAL SC PRN ×2 (09:23→17:04)
[2018-02-04] MEDS: Potassium Chloride 20 MEQ TAB PO SCH ×2 (09:26→16:50)
[2018-02-04] MEDS: diphenhydrAMINE 25 MG CAP PO PRN (10:30)
[2018-02-04] MEDS ORDERED: Potassium Chloride 20 MEQ TAB PO SCH (12:00)
--- NOTE | 2018-02-04 12:54 | PDOC.CTH ---
<Catalina Glaser - Last Filed: 02/04/18 12:54> Cardiology Progress Note - Subjective The pt seen and examined. No overnight events. No cardiac complaints. Today, the pt was told that Dobutamine will not started since he responds well with Metolazone. - Objective Vital Signs Temp Pulse Resp BP BP BP Pulse Ox 02/04/18 09:19 79 131/83 02/04/18 09:18 79 02/04/18 08:00 98 F 79 18 131/83 94 L 02/04/18 04:15 97.5 F L 72 17 137/80 90 L Admit Weight 323 lb 12.8 oz Weight 307 lb 14.4 oz 02/03/18 02/04/18 02/05/18 06:59 06:59 06:59 Intake Total 1025 1300 Output Total 3500 2300 Balance -2475 -1000 - Physical Examination General/Neuro: alert & oriented x3 Neck: no JVD present Lungs: other: (diminished at bases) Heart: other: (irregular) Abdomen: soft Extremities: other: (3+ pitting BLE edema) - Labs Result Diagrams: 02/04/18 04:57 02/04/18 04:57 Troponin/CKMB Troponin I 0.206 ng/mL (< 0.028) H 01/29/18 02:51 - Assessment/Plan 1. Acute on chronic combined HF - He responded to Metolazone well. On BBlocker , JONNY, Lasix IV BID. Jonny Wrap to BLE. 2. Chronic Afib with RVR - Well controlled HR with Digogixn and Bblocker; on Eliquis. 3. HTN - stable 4. RBBB - stable 5. DM type 2 - DM education given; Dietitian consult 6. NADEEM on Cpap - Cpap @ HS 7. Hypothyrodism - Levothyroxin was started from this AM by PCP 8. Obese - weight management education given to the pt. MAR reviewed * Echo on 01/29/18 showed EF < 25-30%, dilated LV, mod ERV, mod-severe dilated LA, mod ERA, mild MR and mild TR Review of Systems - Review of Systems Constitutional: reports: no symptoms reported EENTM: reports: no symptoms reported Respiratory: reports: no symptoms reported Cardiac (ROS): reports: no symptoms reported ABD/GI: reports: no symptoms reported : reports: no symptoms reported Musculoskeletal: reports: no symptoms reported <Dallas Silva - Last Filed: 02/04/18 17:33> Cardiology Progress Note - Objective Vital Signs Temp Pulse Resp BP BP Pulse Ox 02/04/18 16:53 97.2 F L 75 18 132/88 92 L 02/04/18 14:03 71 18 138/78 02/04/18 09:19 79 131/83 02/04/18 09:18 79 02/04/18 08:00 98 F 79 18 131/83 94 L Admit Weight 323 lb 12.8 oz Weight 307 lb 14.4 oz 02/03/18 02/04/18 02/05/18 06:59 06:59 06:59 Intake Total 1025 1300 Output Total 3500 2300 Balance -2475 -1000 - Labs Result Diagrams: 02/04/18 04:57 02/04/18 04:57 Troponin/CKMB Troponin I 0.206 ng/mL (< 0.028) H 01/29/18 02:51 - Assessment/Plan Pt. seen and eval. by me. I agree with the A/P by the MARKETING OPERATIONS ASSISTANT.Continue to diurese. records were requested from [facility] but they are not available. He stated that he had normal coronaries on a cardiac cath but he may need to undergo a repeat cath. His edema is improving. Consider cath early next week to rule out CAD as the etiology for the severe decr. in LV function. If the EF remains <30-35% he will need a life vest. This may be difficult due to his size.
--- NOTE | 2018-02-04 16:28 | PDOC.PN ---
- Subjective Encounter Start Date: 02/04/18 Encounter Start Time: 09:00 Patient seen and examined for CHF. SOb improving. No new complaints. No overnight events - Objective Resuscitation Status - Order Detail: 02/02/18 18:35 Resuscitation Status Routine Resuscitation Status: FULL: Full Resuscitation Discussed with: confirmed with patient MAR Reviewed: Yes Vital Signs & Weight: Vital Signs (12 hours) Temp Pulse Resp BP BP Pulse Ox 02/04/18 14:03 71 18 138/78 02/04/18 09:19 79 131/83 02/04/18 09:18 79 02/04/18 08:00 98 F 79 18 131/83 94 L Weight Admit Weight 323 lb 12.8 oz Weight 307 lb 14.4 oz I&O: 02/03/18 02/04/18 02/05/18 06:59 06:59 06:59 Intake Total 1025 1300 Output Total 3500 2300 Balance -2475 -1000 Result Diagrams: 02/04/18 04:57 02/04/18 04:57 Additional Labs: Accuchecks 02/04/18 02/04/18 02/03/18 11:13 05:29 21:04 POC Glucose 258 H 241 H 195 H 02/03/18 17:56 POC Glucose 184 H EKG Reviewed by me: Yes (Tele SR) Phys Exam - Physical Examination Constitutional: NAD Respiratory: no wheezing, no rhonchi Bibasilar rales Cardiovascular: no rub, irregular Gastrointestinal: soft, non-tender, positive bowel sounds Musculoskeletal: edema present Neurological: non-focal, moves all 4 limbs Psychiatric: A&O x 3 Dx/Plan - Plan 1. Acute on chronic systolic/diastolic HF - improving with diuresis 2. Afib with RVR - rate controlled, on anticoag 3. HTN 4. NADEEM on CPAP 5. DM type 2 6. Hypokalemia/Hypomagnessemia 7. Depression 8. Morbid Obesity/ Elevated troponin due to demand ischemia/Thrombocytopenia/ CKD 3 PLAN: Cont IV Lasix/Metolazone Replace electrolytes AM labs Cont current meds as below Cont Coreg/Digoxin/Lisinopril Review of Systems - Review of Systems Respiratory: SOB with Excertion. negative: Cough, Dry, Shortness of Breath, Hemoptysis, Pleuritic Pain, Sputum, Wheezing Cardiovascular: edema. negative: chest pain, palpitations, orthopnea, paroxysmal nocturnal dyspnea, light headedness, other - Medications/Allergies Allergies/Adverse Reactions: Allergies Allergy/AdvReac Type Severity Reaction Status Date / Time No Known Allergies Allergy Verified 01/29/18 03:22 Medications: Current Medications Acetaminophen (Tylenol) 650 mg PO Q4H PRN PRN Reason: Headache/Fever/Mild Pain (1-3) Hydrocodone Bitart/Acetaminophen ([place] 5/325) 1 tab PO Q4H PRN PRN Reason: Moderate Pain (4-6) Last Admin: 02/04/18 14:04 Dose: 1 tab Albuterol/Ipratropium (Duoneb) 3 ml NEB [id number] PRN PRN Reason: SOB &/or Wheezing Last Admin: 02/01/18 08:52 Dose: 3 ml Allopurinol (Zyloprim) 100 mg PO DAILY [facility] Last Admin: 02/04/18 09:17 Dose: 100 mg Alprazolam (Xanax) 0.25 mg PO DAILYPRN PRN PRN Reason: Anxiety Last Admin: 02/04/18 09:22 Dose: 0.25 mg Apixaban (Eliquis) 5 mg PO BID [facility] Last Admin: 02/04/18 09:19 Dose: 5 mg Artificial Tears (Tears Renewed 15ml Bottle) 2 drop EA EYE PRN PRN PRN Reason: Dry Eyes Aspirin (Aspirin Chewable) 81 mg PO DAILY [facility] Last Admin: 02/04/18 09:20 Dose: 81 mg Atorvastatin Calcium (Lipitor) 40 mg PO HS [facility] Last Admin: 02/03/18 20:32 Dose: 40 mg Bisacodyl (Dulcolax) 10 mg PO DAILYPRN PRN PRN Reason: Constipation Bisacodyl (Dulcolax) 10 mg [place] DAILYPRN PRN PRN Reason: Constipation Calcium Carbonate (Tums) 1,000 mg PO Q4H PRN PRN Reason: Heartburn or Indigestion Carvedilol (Coreg) 3.125 mg PO BID-[facility] Last Admin: 02/04/18 09:20 Dose: 3.125 mg Dextrose/Water (Dextrose 50%) 25 gm SLOW IVP PRN PRN PRN Reason: Hypoglycemia Digoxin (Lan[facility]) [facility] Last Admin: 02/04/18 09:18 Dose: 0.25 mg Diphenhydramine HCl (Benadryl) 25 mg PO Q6H PRN PRN Reason: Itching Last Admin: 02/04/18 10:30 Dose: 25 mg Famotidine (Pepcid) 20 mg PO BID [facility] Last Admin: 02/04/18 09:18 Dose: 20 mg Furosemide (Lasix) 40 mg SLOW IVP 0600,1400 [facility] Last Admin: 02/04/18 14:04 Dose: 40 mg Gabapentin (Neurontin) 100 mg PO BID [facility] Last Admin: 02/04/18 09:20 Dose: 100 mg Glipizide (Glucotrol) 10 mg PO DAILY [facility] Last Admin: 02/04/18 09:19 Dose: 10 mg Glucagon (Glucagon) 1 mg IM PRN PRN PRN Reason: Hypoglycemia Guaifenesin (Robitussin Sf) 200 mg PO Q4H PRN PRN Reason: Cough Hydralazine HCl (Apresoline) 10 mg SLOW IVP Q4H PRN PRN Reason: SBP > 180 and HR < 70 Dextrose/Water (D5w) 1,000 mls @ 0 mls/hr IV .Q0M PRN PRN Reason: Hypoglycemia Dobutamine HCl/Dextrose (Dobutamine 500 Mg/250 Ml) 250 mls @ 22.33 mls/hr IVPB INF [facility]; Protocol Insulin Human Lispro (Humalog) 0 units SC .MODERATE SLIDING SC PRN PRN Reason: Moderate Correctional Scale Last Admin: 02/04/18 09:23 Dose: 4 unit Insulin Human Lispro (Humalog) 0 units SC .BEDTIME SLIDING SC PRN PRN Reason: Bedtime Correctional Scale Last Admin: 01/29/18 22:09 Dose: 2 unit Levothyroxine Sodium (Synthroid) 25 mcg PO 0600 [facility] Last Admin: 02/04/18 06:10 Dose: 25 mcg Lisinopril (Zestril) 5 mg PO DAILY [facility] Last Admin: 02/04/18 09:19 Dose: 5 mg Loperamide HCl (Imodium) 2 mg PO PRN PRN PRN Reason: Diarrhea/Loose Stools Magnesium Chloride (Slow-Mag) 64 mg PO BID [facility] Last Admin: 02/04/18 09:23 Dose: 64 mg Metolazone (Zaroxolyn) 5 mg PO 0830 [facility] Last Admin: 02/04/18 09:20 Dose: 5 mg Mineral Oil/White Petrolatum (Eucerin Cream) 0 gm TOP BIDPRN PRN PRN Reason: Dry Skin Nitroglycerin (Nitrostat) 0.4 mg SL Q5MIN PRN PRN Reason: Chest Pain Ondansetron HCl (Zofran Odt) 4 mg PO Q6H PRN PRN Reason: Nausea/Vomiting Ondansetron HCl (Zofran) 4 mg IVP Q6H PRN PRN Reason: Nausea/Vomiting Potassium Chloride (K-Dur) 20 meq PO BID-[facility] Last Admin: 02/04/18 09:26 Dose: 20 meq Senna/Docusate Sodium (Senokot S) 2 tab PO BID PRN PRN Reason: Constipation Sodium Chloride ([place] Nasal [place] 0.65%) 0 ml EA NARE QIDPRN PRN PRN Reason: Nasal Congestion Sodium Chloride (Flush - Normal Saline) 10 ml IVF Q12HR [facility] Last Admin: 02/04/18 09:25 Dose: 10 ml Sodium Chloride (Flush - Normal Saline) 10 ml IVF PRN PRN PRN Reason: Saline Flush Last Admin: 02/04/18 14:05 Dose: 10 ml Throat Lozenges (Cepastat Lozenges) 1 reggie PO Q2H PRN PRN Reason: Sore Throat Zolpidem Tartrate (Ambien) 5 mg PO HSPRN PRN PRN Reason: Insomnia Last Admin: 02/03/18 20:32 Dose: 5 mg
[2018-02-04] MEDS: Atorvastatin Calcium 40 MG TAB PO SCH (20:17)
[2018-02-04] MEDS: Zolpidem Tartrate 5 MG TAB PO PRN (20:18)
[2018-02-05] MEDS: HYDROcodone/Acetaminophen 5/325 mg Tablet PO PRN ×4 (04:05→21:17)
[2018-02-05] MEDS: Levothyroxine Sodium 25 MCG TAB PO SCH (05:46)
[2018-02-05] MEDS: Furosemide 40 MG/4 ML VIAL SLOW IVP SCH ×2 (05:46→14:09)
[2018-02-05 06:20] LABS: Hemoglobin 12.3 g/dL (14.0-18.0); Platelet Count 78 thou/uL (130-400)
[2018-02-05 06:30] LABS: Magnesium 1.7 mg/dL (1.6-2.6)
[2018-02-05 06:34] LABS: Anion Gap 13 mmol/L (10-20); BUN (Urea Nitrogen) 33 mg/dL (8.4-25.7); Calc. Creatinine Clearance 106 mL/min (70-130); Calcium 9.3 mg/dL (7.8-10.44); Carbon Dioxide 35 mmol/L (23-31); Chloride 94 mmol/L (98-107); Estimated GFR-MDRD 53; Glucose 208 mg/dL (80-115); Potassium 3.2 mmol/L (3.5-5.1); Sodium 139 mmol/L (136-145)
[2018-02-05] MEDS: Carvedilol 3.125 MG TAB PO SCH ×2 (09:21→17:25)
[2018-02-05] MEDS: Allopurinol 100 MG TAB PO SCH (09:21)
[2018-02-05] MEDS: Apixaban 5 MG TAB PO SCH ×2 (09:21→21:17)
[2018-02-05] MEDS: Potassium Chloride 20 MEQ TAB PO SCH ×3 (09:21→17:25)
[2018-02-05] MEDS: Metolazone 5 MG TAB PO SCH (09:21)
[2018-02-05] MEDS: glipiZIDE 10 MG TAB PO SCH (09:22)
[2018-02-05] MEDS: Gabapentin 100 MG CAP PO SCH ×2 (09:22→21:17)
[2018-02-05] MEDS: Famotidine 20 MG TAB PO SCH ×2 (09:22→21:17)
[2018-02-05] MEDS: Digoxin 0.25 MG TAB PO SCH (09:22)
[2018-02-05] MEDS: Lisinopril 5 MG TAB PO SCH (09:22)
[2018-02-05] MEDS: Magnesium Chloride 64 MG TAB PO SCH ×2 (09:23→21:18)
[2018-02-05] MEDS: ALPRAZolam 0.25 MG TAB PO PRN ×2 (09:29→21:17)
[2018-02-05] MEDS: HumaLOG 300 UNITS/3 ML VIAL SC PRN ×3 (11:50→21:22)
--- NOTE | 2018-02-05 13:13 | PDOC.PN ---
- Subjective Encounter Start Date: 02/05/18 Encounter Start Time: 09:45 Patient seen and examined for CHF. SOB improving. No new complaints. No overnight events - Objective Resuscitation Status - Order Detail: 02/02/18 18:35 Resuscitation Status Routine Resuscitation Status: FULL: Full Resuscitation Discussed with: confirmed with patient MAR Reviewed: Yes Vital Signs & Weight: Vital Signs (12 hours) Temp Pulse Resp BP Pulse Ox 02/05/18 08:55 98.1 F 84 20 124/74 92 L 02/05/18 04:53 97.3 F L 78 20 158/92 H 94 L Weight Admit Weight 323 lb 12.8 oz Weight 302 lb I&O: 02/04/18 02/05/18 02/06/18 06:59 06:59 06:59 Intake Total 1300 1220 Output Total 2300 4175 Balance -1000 -5467 Result Diagrams: 02/05/18 05:33 02/05/18 05:33 Additional Labs: Accuchecks 02/05/18 02/05/18 02/04/18 07:55 05:42 20:22 POC Glucose 170 H 228 H 200 H 02/04/18 17:00 POC Glucose 231 H EKG Reviewed by me: Yes (Tele Afib) Phys Exam - Physical Examination Constitutional: NAD Respiratory: no wheezing, no rhonchi rales at bases Cardiovascular: no rub, irregular Gastrointestinal: soft, non-tender, positive bowel sounds Musculoskeletal: edema present Neurological: moves all 4 limbs Dx/Plan - Plan 1. Acute on chronic systolic/diastolic HF 2. Afib with RVR - rate controlled, on anticoag 3. HTN 4. NADEEM on CPAP 5. DM type 2 6. Hypokalemia/Hypomagnessemia 7. Depression 8. Morbid Obesity/ Elevated troponin due to demand ischemia/Thrombocytopenia/ CKD 3 PLAN: Cont IV Lasix/Metolazone with fluid restriction Replace Potassum AM labs Cont current meds including Coreg/Digoxin/Lisinopril Review of Systems - Review of Systems Respiratory: SOB with Excertion. negative: Cough, Dry, Shortness of Breath, Hemoptysis, Pleuritic Pain, Sputum, Wheezing Cardiovascular: negative: chest pain, palpitations, orthopnea, paroxysmal nocturnal dyspnea, edema, light headedness, other - Medications/Allergies Allergies/Adverse Reactions: Allergies Allergy/AdvReac Type Severity Reaction Status Date / Time No Known Allergies Allergy Verified 01/29/18 03:22 Medications: Current Medications Acetaminophen (Tylenol) 650 mg PO Q4H PRN PRN Reason: Headache/Fever/Mild Pain (1-3) Hydrocodone Bitart/Acetaminophen ([place] 5/325) 1 tab PO Q4H PRN PRN Reason: Moderate Pain (4-6) Last Admin: 02/05/18 09:28 Dose: 1 tab Albuterol/Ipratropium (Duoneb) 3 ml NEB [id number] PRN PRN Reason: SOB &/or Wheezing Last Admin: 02/01/18 08:52 Dose: 3 ml Allopurinol (Zyloprim) 100 mg PO DAILY [facility] Last Admin: 02/05/18 09:21 Dose: 100 mg Alprazolam (Xanax) 0.25 mg PO DAILYPRN PRN PRN Reason: Anxiety Last Admin: 02/05/18 09:29 Dose: 0.25 mg Apixaban (Eliquis) 5 mg PO BID [facility] Last Admin: 02/05/18 09:21 Dose: 5 mg Artificial Tears (Tears Renewed 15ml Bottle) 2 drop EA EYE PRN PRN PRN Reason: Dry Eyes Aspirin (Aspirin Chewable) 81 mg PO DAILY [facility] Last Admin: 02/05/18 09:22 Dose: 81 mg Atorvastatin Calcium (Lipitor) 40 mg PO HS [facility] Last Admin: 02/04/18 20:17 Dose: 40 mg Bisacodyl (Dulcolax) 10 mg PO DAILYPRN PRN PRN Reason: Constipation Bisacodyl (Dulcolax) 10 mg [place] DAILYPRN PRN PRN Reason: Constipation Calcium Carbonate (Tums) 1,000 mg PO Q4H PRN PRN Reason: Heartburn or Indigestion Carvedilol (Coreg) 3.125 mg PO BID-[facility] Last Admin: 02/05/18 09:21 Dose: 3.125 mg Dextrose/Water (Dextrose 50%) 25 gm SLOW IVP PRN PRN PRN Reason: Hypoglycemia Digoxin (Lanoxin) 0.25 mg PO QAM [facility] Last Admin: 02/05/18 09:22 Dose: 0.25 mg Diphenhydramine HCl (Benadryl) 25 mg PO Q6H PRN PRN Reason: Itching Last Admin: 02/04/18 10:30 Dose: 25 mg Famotidine (Pepcid) 20 mg PO BID [facility] Last Admin: 02/05/18 09:22 Dose: Not Given Furosemide (Lasix) 40 mg SLOW IVP 0600,1400 [facility] Last Admin: 02/05/18 05:46 Dose: 40 mg Gabapentin (Neurontin) 100 mg PO BID [facility] Last Admin: 02/05/18 09:22 Dose: 100 mg Glipizide (Glucotrol) 10 mg PO DAILY [facility] Last Admin: 02/05/18 09:22 Dose: 10 mg Glucagon (Glucagon) 1 mg IM PRN PRN PRN Reason: Hypoglycemia Guaifenesin (Robitussin Sf) 200 mg PO Q4H PRN PRN Reason: Cough Hydralazine HCl (Apresoline) 10 mg SLOW IVP Q4H PRN PRN Reason: SBP > 180 and HR < 70 Dextrose/Water (D5w) 1,000 mls @ 0 mls/hr IV .Q0M PRN PRN Reason: Hypoglycemia Dobutamine HCl/Dextrose (Dobutamine 500 Mg/250 Ml) 250 mls @ 22.33 mls/hr IVPB INF [facility]; Protocol Insulin Human Lispro (Humalog) 0 units SC .MODERATE SLIDING SC PRN PRN Reason: Moderate Correctional Scale Last Admin: 02/05/18 11:50 Dose: 4 unit Insulin Human Lispro (Humalog) 0 units SC .BEDTIME SLIDING SC PRN PRN Reason: Bedtime Correctional Scale Last Admin: 01/29/18 22:09 Dose: 2 unit Levothyroxine Sodium (Synthroid) 25 mcg PO 0600 [facility] Last Admin: 02/05/18 05:46 Dose: 25 mcg Lisinopril (Zestril) 5 mg PO DAILY [facility] Last Admin: 02/05/18 09:22 Dose: 5 mg Loperamide HCl (Imodium) 2 mg PO PRN PRN PRN Reason: Diarrhea/Loose Stools Magnesium Chloride (Slow-Mag) 64 mg PO BID [facility] Last Admin: 02/05/18 09:23 Dose: 64 mg Metolazone (Zaroxolyn) 5 mg PO 0830 [facility] Last Admin: 02/05/18 09:21 Dose: 5 mg Mineral Oil/White Petrolatum (Eucerin Cream) 0 gm TOP BIDPRN PRN PRN Reason: Dry Skin Nitroglycerin (Nitrostat) 0.4 mg SL Q5MIN PRN PRN Reason: Chest Pain Ondansetron HCl (Zofran Odt) 4 mg PO Q6H PRN PRN Reason: Nausea/Vomiting Ondansetron HCl (Zofran) 4 mg IVP Q6H PRN PRN Reason: Nausea/Vomiting Potassium Chloride (K-Dur) 20 meq PO TID-[facility] Last Admin: 02/05/18 11:50 Dose: 20 meq Senna/Docusate Sodium (Senokot S) 2 tab PO BID PRN PRN Reason: Constipation Sodium Chloride ([place] Nasal [place] 0.65%) 0 ml EA NARE QIDPRN PRN PRN Reason: Nasal Congestion Sodium Chloride (Flush - Normal Saline) 10 ml IVF Q12HR [facility] Last Admin: 02/05/18 09:24 Dose: 10 ml Sodium Chloride (Flush - Normal Saline) 10 ml IVF PRN PRN PRN Reason: Saline Flush Last Admin: 02/04/18 14:05 Dose: 10 ml Throat Lozenges (Cepastat Lozenges) 1 reggie PO Q2H PRN PRN Reason: Sore Throat Zolpidem Tartrate (Ambien) 5 mg PO HSPRN PRN PRN Reason: Insomnia Last Admin: 02/04/18 20:18 Dose: 5 mg
[2018-02-05] MEDS: Atorvastatin Calcium 40 MG TAB PO SCH (21:17)
[2018-02-06] MEDS: HYDROcodone/Acetaminophen 5/325 mg Tablet PO PRN ×4 (01:53→21:01)
[2018-02-06] MEDS: Furosemide 40 MG/4 ML VIAL SLOW IVP SCH ×2 (06:19→14:28)
[2018-02-06] MEDS: Levothyroxine Sodium 25 MCG TAB PO SCH (06:19)
[2018-02-06 07:21] LABS: Hemoglobin 12.9 g/dL (14.0-18.0); Platelet Count 80 thou/uL (130-400)
[2018-02-06 07:30] LABS: Anion Gap 15 mmol/L (10-20); BUN (Urea Nitrogen) 30 mg/dL (8.4-25.7); Calc. Creatinine Clearance 119 mL/min (70-130); Calcium 9.3 mg/dL (7.8-10.44); Carbon Dioxide 35 mmol/L (23-31); Chloride 93 mmol/L (98-107); Estimated GFR-MDRD 62; Glucose 166 mg/dL (80-115); Magnesium 1.5 mg/dL (1.6-2.6); Sodium 140 mmol/L (136-145)
[2018-02-06] MEDS ORDERED: Magnesium 2 GM/50 ML 2 GM in Premix Bag 1 BAG IVPB SCH (08:30)
[2018-02-06] MEDS: Potassium Chloride 20 MEQ TAB PO SCH ×3 (08:37→16:53)
[2018-02-06] MEDS: Metolazone 5 MG TAB PO SCH (09:48)
[2018-02-06] MEDS: Allopurinol 100 MG TAB PO SCH (09:48)
[2018-02-06] MEDS: glipiZIDE 10 MG TAB PO SCH (09:48)
[2018-02-06] MEDS: Famotidine 20 MG TAB PO SCH ×2 (09:49→20:58)
[2018-02-06] MEDS: Gabapentin 100 MG CAP PO SCH ×2 (09:49→20:58)
[2018-02-06] MEDS: Lisinopril 5 MG TAB PO SCH (09:49)
[2018-02-06] MEDS: Digoxin 0.25 MG TAB PO SCH (09:49)
[2018-02-06] MEDS: Apixaban 5 MG TAB PO SCH ×2 (09:50→20:57)
[2018-02-06] MEDS: Carvedilol 3.125 MG TAB PO SCH ×2 (09:50→16:53)
[2018-02-06] MEDS ORDERED: Potassium Chloride 20 MEQ TAB PO SCH ×2 (12:00→21:00)
[2018-02-06] MEDS: Magnesium Chloride 64 MG TAB PO SCH (12:37)
[2018-02-06] MEDS: HumaLOG 300 UNITS/3 ML VIAL SC PRN (12:38)
--- NOTE | 2018-02-06 16:14 | PDOC.PN ---
- Subjective Encounter Start Date: 02/06/18 Encounter Start Time: 09:30 Patient seen and examined for CHF. No new complaints. SOB improving. B/L LE neuropathic pain. No overnight events - Objective Resuscitation Status - Order Detail: 02/02/18 18:35 Resuscitation Status Routine Resuscitation Status: FULL: Full Resuscitation Discussed with: confirmed with patient MAR Reviewed: Yes Vital Signs & Weight: Vital Signs (12 hours) Temp Pulse Resp BP Pulse Ox 02/06/18 09:49 61 02/06/18 08:45 92 L 02/06/18 07:45 97.8 F 61 16 114/65 92 L Weight Admit Weight 323 lb 12.8 oz Weight 295 lb 1.6 oz I&O: 02/05/18 02/06/18 02/07/18 06:59 06:59 06:59 Intake Total 1220 1494 Output Total 4175 5470 Balance -8565 -3784 Result Diagrams: 02/06/18 06:18 02/06/18 06:18 Additional Labs: Accuchecks 02/06/18 02/05/18 02/05/18 11:03 20:33 16:37 POC Glucose 244 H 234 H 197 H 02/05/18 10:53 POC Glucose 233 H EKG Reviewed by me: Yes (Tele Afib) Phys Exam - Physical Examination Constitutional: NAD Respiratory: no wheezing, no rhonchi Cardiovascular: RRR, no rub Gastrointestinal: soft, non-tender, positive bowel sounds Musculoskeletal: no edema Neurological: non-focal, moves all 4 limbs Psychiatric: A&O x 3 Dx/Plan - Plan 1. Acute on chronic systolic/diastolic HF 2. Afib with RVR - rate controlled, on anticoag 3. HTN 4. NADE[place] on CPAP 5. DM type 2 6. Hypokalemia/Hypomagnessemia 7. Depression 8. Morbid Obesity/ Elevated troponin due to demand ischemia/Thrombocytopenia/ CKD 3 PLAN: Cont IV Lasix/Metolazone/fluid restriction Replace Potassum and Magnessium AM labs Cont current meds including Coreg/Digoxin/Lisinopril Increase Gabapentin Review of Systems - Review of Systems Cardiovascular: negative: chest pain, palpitations, orthopnea, paroxysmal nocturnal dyspnea, edema, light headedness, other Gastrointestinal: negative: Nausea, Vomiting, Abdominal Pain, Diarrhea, Constipation, Melena, Hematochezia, Other - Medications/Allergies Allergies/Adverse Reactions: Allergies Allergy/AdvReac Type Severity Reaction Status Date / Time No Known Allergies Allergy Verified 01/29/18 03:22 Medications: Current Medications Acetaminophen (Tylenol) 650 mg PO Q4H PRN PRN Reason: Headache/Fever/Mild Pain (1-3) Hydrocodone Bitart/Acetaminophen ([place] 5/325) 1 tab PO Q4H PRN PRN Reason: Moderate Pain (4-6) Last Admin: 02/06/18 14:28 Dose: 1 tab Albuterol/Ipratropium (Duoneb) 3 ml NEB [id number] PRN PRN Reason: SOB &/or Wheezing Last Admin: 02/01/18 08:52 Dose: 3 ml Allopurinol (Zyloprim) 100 mg PO DAILY [facility] Last Admin: 02/06/18 09:48 Dose: 100 mg Alprazolam (Xanax) 0.25 mg PO DAILYPRN PRN PRN Reason: Anxiety Last Admin: 02/05/18 21:17 Dose: 0.25 mg Apixaban (Eliquis) 5 mg PO BID [facility] Last Admin: 02/06/18 09:50 Dose: 5 mg Artificial Tears (Tears Renewed 15ml Bottle) 2 drop EA EYE PRN PRN PRN Reason: Dry Eyes Aspirin (Aspirin Chewable) 81 mg PO DAILY [facility] Last Admin: 02/06/18 09:50 Dose: 81 mg Atorvastatin Calcium (Lipitor) 40 mg PO HS [facility] Last Admin: 02/05/18 21:17 Dose: 40 mg Bisacodyl (Dulcolax) 10 mg PO DAILYPRN PRN PRN Reason: Constipation Bisacodyl (Dulcolax) 10 mg [place] DAILYPRN PRN PRN Reason: Constipation Calcium Carbonate (Tums) 1,000 mg PO Q4H PRN PRN Reason: Heartburn or Indigestion Carvedilol (Coreg) 3.125 mg PO BID-[facility] Last Admin: 02/06/18 09:50 Dose: 3.125 mg Dextrose/Water (Dextrose 50%) 25 gm SLOW IVP PRN PRN PRN Reason: Hypoglycemia Digoxin (Lanoxin) [facility] mg [facility]AM[facility] Last Admin: 02/06/18 09:49 Dose: 0.25 mg Diphenhydramine HCl (Benadryl) 25 mg PO Q6H PRN PRN Reason: Itching Last Admin: 02/04/18 10:30 Dose: 25 mg Famotidine (Pepcid) 20 mg PO BID [facility] Last Admin: 02/06/18 09:49 Dose: 20 mg Furosemide (Lasix) 40 mg SLOW IVP 0600,1400 [facility] Last Admin: 02/06/18 14:28 Dose: 40 mg Gabapentin (Neurontin) 100 mg PO BID [facility] Last Admin: 02/06/18 09:49 Dose: 100 mg Glipizide (Glucotrol) 10 mg PO DAILY [facility] Last Admin: 02/06/18 09:48 Dose: 10 mg Glucagon (Glucagon) 1 mg IM PRN PRN PRN Reason: Hypoglycemia Guaifenesin (Robitussin Sf) 200 mg PO Q4H PRN PRN Reason: Cough Hydralazine HCl (Apresoline) 10 mg SLOW IVP Q4H PRN PRN Reason: SBP > 180 and HR < 70 Dextrose/Water (D5w) 1,000 mls @ 0 mls/hr IV .Q0M PRN PRN Reason: Hypoglycemia Dobutamine HCl/Dextrose (Dobutamine 500 Mg/250 Ml) 250 mls @ 22.33 mls/hr IVPB INF [facility]; Protocol Insulin Glargine 10 units/ (Miscellaneous Medication) 0.1 mls @ 0 mls/hr SC QAM [facility] Insulin Human Lispro (Humalog) 0 units SC .MODERATE SLIDING SC PRN PRN Reason: Moderate Correctional Scale Last Admin: 02/06/18 12:38 Dose: 4 unit Insulin Human Lispro (Humalog) 0 units SC .BEDTIME SLIDING SC PRN PRN Reason: Bedtime Correctional Scale Last Admin: 02/05/18 21:22 Dose: 2 unit Levothyroxine Sodium (Synthroid) 25 mcg PO 0600 [facility] Last Admin: 02/06/18 06:19 Dose: 25 mcg Lisinopril (Zestril) 5 mg PO DAILY [facility] Last Admin: 02/06/18 09:49 Dose: 5 mg Loperamide HCl (Imodium) 2 mg PO PRN PRN PRN Reason: Diarrhea/Loose Stools Magnesium Chloride (Slow-Mag) 64 mg PO BID [facility] Last Admin: 02/06/18 12:37 Dose: 64 mg Metolazone (Zaroxolyn) 5 mg PO 0830 [facility] Last Admin: 02/06/18 09:48 Dose: 5 mg Mineral Oil/White Petrolatum (Eucerin Cream) 0 gm TOP BIDPRN PRN PRN Reason: Dry Skin Nitroglycerin (Nitrostat) 0.4 mg SL Q5MIN PRN PRN Reason: Chest Pain Ondansetron HCl (Zofran Odt) 4 mg PO Q6H PRN PRN Reason: Nausea/Vomiting Ondansetron HCl (Zofran) 4 mg IVP Q6H PRN PRN Reason: Nausea/Vomiting Potassium Chloride (K-Dur) 40 meq PO BID-[facility] Last Admin: 02/06/18 09:49 Dose: 40 meq Potassium Chloride (K-Dur) 20 meq PO 2100 [facility] Stop: 02/06/18 23:00 Senna/Docusate Sodium (Senokot S) 2 tab PO BID PRN PRN Reason: Constipation Sodium Chloride ([place] Nasal [place] 0.65%) 0 ml EA NARE QIDPRN PRN PRN Reason: Nasal Congestion Sodium Chloride (Flush - Normal Saline) 10 ml IVF Q12HR [facility] Last Admin: 02/06/18 09:50 Dose: 10 ml Sodium Chloride (Flush - Normal Saline) 10 ml IVF PRN PRN PRN Reason: Saline Flush Last Admin: 02/04/18 14:05 Dose: 10 ml Throat Lozenges (Cepastat Lozenges) 1 reggie PO Q2H PRN PRN Reason: Sore Throat Zolpidem Tartrate (Ambien) 5 mg PO HSPRN PRN PRN Reason: Insomnia Last Admin: 02/04/18 20:18 Dose: 5 mg
[2018-02-06] MEDS ORDERED: Gabapentin 100 MG CAP PO SCH (17:00)
[2018-02-06] MEDS: Atorvastatin Calcium 40 MG TAB PO SCH (20:58)
[2018-02-06] MEDS: ALPRAZolam 0.25 MG TAB PO PRN (21:01)
[2018-02-07] MEDS: Magnesium Chloride 64 MG TAB PO SCH ×3 (00:54→21:41)
[2018-02-07] MEDS: HYDROcodone/Acetaminophen 5/325 mg Tablet PO PRN ×5 (00:54→21:55)
[2018-02-07] MEDS: Levothyroxine Sodium 25 MCG TAB PO SCH ×2 (05:18→05:29)
[2018-02-07] MEDS: Furosemide 40 MG/4 ML VIAL SLOW IVP SCH ×2 (05:30→15:18)
[2018-02-07] MEDS: Insulin Glargine 10 UNITS in Pre-Filled Syringe 1 EACH SC SCH ×2 (09:36→21:42)
[2018-02-07] MEDS: HumaLOG 300 UNITS/3 ML VIAL SC PRN ×4 (09:36→21:44)
[2018-02-07] MEDS: ALPRAZolam 0.25 MG TAB PO PRN (09:37)
[2018-02-07] MEDS: Apixaban 5 MG TAB PO SCH ×2 (09:37→21:40)
[2018-02-07] MEDS: Allopurinol 100 MG TAB PO SCH (09:37)
[2018-02-07] MEDS: glipiZIDE 10 MG TAB PO SCH (09:38)
[2018-02-07] MEDS: Potassium Chloride 20 MEQ TAB PO SCH ×4 (09:38→21:40)
[2018-02-07] MEDS: Famotidine 20 MG TAB PO SCH ×2 (09:38→21:40)
[2018-02-07] MEDS: Lisinopril 5 MG TAB PO SCH (09:38)
[2018-02-07] MEDS: Gabapentin 100 MG CAP PO SCH ×3 (09:38→21:40)
[2018-02-07] MEDS: Digoxin 0.25 MG TAB PO SCH (09:38)
[2018-02-07] MEDS: Metolazone 5 MG TAB PO SCH (09:38)
[2018-02-07] MEDS: Carvedilol 3.125 MG TAB PO SCH ×2 (09:39→18:14)
[2018-02-07 10:01] LABS: Hemoglobin 12.8 g/dL (14.0-18.0); Platelet Count 81 thou/uL (130-400)
[2018-02-07 10:17] LABS: BUN (Urea Nitrogen) 28 mg/dL (8.4-25.7); Calc. Creatinine Clearance 106 mL/min (70-130); Calcium 9.9 mg/dL (7.8-10.44); Estimated GFR-MDRD 56; Glucose 228 mg/dL (80-115); Magnesium 1.6 mg/dL (1.6-2.6)
[2018-02-07 10:26] LABS: Anion Gap 17 mmol/L (10-20); Carbon Dioxide 35 mmol/L (23-31); Chloride 89 mmol/L (98-107); Sodium 138 mmol/L (136-145)
[2018-02-07] MEDS ORDERED: Magnesium 2 GM/50 ML 2 GM in Premix Bag 1 BAG IVPB SCH (10:45)
--- NOTE | 2018-02-07 15:04 | PDOC.CTH ---
<Catalina Glaser - Last Filed: 02/07/18 15:05> Cardiology Progress Note - Subjective The pt seen and examined. No overnight events. No cardiac complaints. His RLE is less swelling, but no changes to LLE. He has not worn JONNY wrap to the site. - Objective Vital Signs Temp Pulse Resp BP BP BP BP 02/07/18 11:20 98.8 F 64 20 133/80 02/07/18 09:38 84 139/94 H 02/07/18 07:30 84 18 139/94 H 02/07/18 04:00 97.2 F L 61 20 119/58 L Pulse Ox 02/07/18 11:20 02/07/18 09:38 02/07/18 07:30 94 L 02/07/18 04:00 93 L Admit Weight 323 lb 12.8 oz Weight 287 lb 02/06/18 02/07/18 02/08/18 06:59 06:59 06:59 Intake Total 1494 400 Output Total 5470 1057 Balance -5605 -374 - Physical Examination General/Neuro: alert & oriented x3 Neck: no JVD present Lungs: other: (diminished at bases) Heart: other: (irregular) Abdomen: soft Extremities: other: (3+ pitting edema to RLE; 4+ to LLE) - Telemetry Telemetry Rhythm: Afib 70s - Labs Result Diagrams: 02/07/18 09:50 02/07/18 09:50 Troponin/CKMB Troponin I 0.206 ng/mL (< 0.028) H 01/29/18 02:51 - Assessment/Plan 1. Acute on chronic combined HF - He responded to Metolazone well. On BBlocker , JONNY, Lasix IV BID. Jonny Wrap to BLE. 2. Chronic Afib with RVR - Well controlled HR with Digogixn and Bblocker; on Eliquis. 3. HTN - stable 4. RBBB - stable 5. DM type 2 - DM education given; Dietitian consult 6. NADEEM on Cpap - Cpap @ HS 7. Hypothyrodism - Levothyroxin was started from this AM by PCP 8. Obese - weight management education given to the pt. MAR reviewed * Echo on 01/29/18 showed EF < 25-30%, dilated LV, mod ERV, mod-severe dilated LA, mod ERA, mild MR and mild TR * Echo in 2014 in [place] showed EF 60-65%, grade II diastolic dysfunction, Lt ERA, mild TR. * Stress test in [place] showed no evidence of ischemia. Review of Systems - Review of Systems Constitutional: reports: no symptoms reported EENTM: reports: no symptoms reported Respiratory: reports: no symptoms reported Cardiac (ROS): reports: no symptoms reported ABD/GI: reports: no symptoms reported : reports: no symptoms reported Musculoskeletal: reports: no symptoms reported <Dallas Silva - Last Filed: 02/07/18 21:21> Cardiology Progress Note - Objective Vital Signs Temp Pulse Resp BP BP Pulse Ox 02/07/18 15:15 97.6 F 56 L 20 165/98 H 94 L 02/07/18 11:20 98.8 F 64 20 133/80 02/07/18 09:38 84 139/94 H Admit Weight 323 lb 12.8 oz Weight 287 lb 02/06/18 02/07/18 02/08/18 06:59 06:59 06:59 Intake Total 4351 948 3753 Output Total 5470 1057 1875 [facility] -3976 -657 [phone] - Labs Result Diagrams: 02/07/18 09:50 02/07/18 09:50 Troponin/CKMB Troponin I 0.206 ng/mL (< 0.028) H 01/29/18 02:51 - Assessment/Plan Pt. was seen and eval. by me. I agree with the A/P by the CRAPS MANAGER. When the pt. is stable then consider cardiac cath.
[2018-02-07] MEDS: Bacitracin Zinc 1 Packet TOP SCH ×2 (15:19→21:41)
--- NOTE | 2018-02-07 19:58 | PDOC.PN ---
- Subjective Encounter Start Date: 02/07/18 Encounter Start Time: 09:30 Patient seen and examined for CHF. SOB improving. No new complaints. No overnight events - Objective Resuscitation Status - Order Detail: 02/02/18 18:35 Resuscitation Status Routine Resuscitation Status: FULL: Full Resuscitation Discussed with: confirmed with patient MAR Reviewed: Yes Vital Signs & Weight: Vital Signs (12 hours) Temp Pulse Resp BP BP Pulse Ox 02/07/18 15:15 97.6 F 56 L 20 165/98 H 94 L 02/07/18 11:20 98.8 F 64 20 133/80 02/07/18 09:38 84 139/94 H Weight Admit Weight 323 lb 12.8 oz Weight 287 lb I&O: 02/06/18 02/07/18 02/08/18 06:59 06:59 06:59 Intake Total 9212 932 2649 Output Total [address] [facility]3976 -657 -875 Result Diagrams: 02/07/18 09:50 02/07/18 09:50 Additional Labs: Accuchecks 02/07/18 02/07/18 02/07/18 17:14 11:15 05:54 POC Glucose 201 H 227 H 194 H 02/06/18 02/06/18 21:07 05:41 POC Glucose 239 H 163 H EKG Reviewed by me: Yes (Tele Afib) Phys Exam - Physical Examination Constitutional: NAD Respiratory: no wheezing, no rhonchi Cardiovascular: no rub, irregular Gastrointestinal: soft, non-tender, positive bowel sounds Musculoskeletal: edema present Neurological: moves all 4 limbs Dx/Plan - Plan 1. Acute on chronic systolic/diastolic HF - improving 2. Afib with RVR - rate controlled, on anticoag 3. HTN 4. NADEEM on CPAP 5. DM type 2 6. Hypokalemia/Hypomagnessemia 7. Depression 8. Morbid Obesity/ Elevated troponin due to demand ischemia/Thrombocytopenia/ CKD 3 PLAN: Cont IV Lasix/Metolazone/fluid restriction Replace electrolytes Cont current meds including Coreg/Digoxin/Lisinopril AM labs Add Lantus 10 units HS Review of Systems - Review of Systems Respiratory: negative: Cough, Dry, Shortness of Breath, Hemoptysis, SOB with Excertion, Pleuritic Pain, Sputum, Wheezing Cardiovascular: negative: chest pain, palpitations, orthopnea, paroxysmal nocturnal dyspnea, edema, light headedness, other - Medications/Allergies Allergies/Adverse Reactions: Allergies Allergy/AdvReac Type Severity Reaction Status Date / Time No Known Allergies Allergy Verified 01/29/18 03:22 Medications: Current Medications Acetaminophen (Tylenol) 650 mg PO Q4H PRN PRN Reason: Headache/Fever/Mild Pain (1-3) Hydrocodone Bitart/Acetaminophen ([place] 5/325) 1 tab PO Q4H PRN PRN Reason: Moderate Pain (4-6) Last Admin: 02/07/18 15:19 Dose: 1 tab Albuterol/Ipratropium (Duoneb) 3 ml NEB [id number] PRN PRN Reason: SOB &/or Wheezing Last Admin: 02/01/18 08:52 Dose: 3 ml Allopurinol (Zyloprim) 100 mg PO DAILY [facility] Last Admin: 02/07/18 09:37 Dose: 100 mg Alprazolam (Xanax) 0.25 mg PO DAILYPRN PRN PRN Reason: Anxiety Last Admin: 02/07/18 09:37 Dose: 0.25 mg Apixaban (Eliquis) 5 mg PO BID [facility] Last Admin: 02/07/18 09:37 Dose: 5 mg Artificial Tears (Tears Renewed 15ml Bottle) 2 drop EA EYE PRN PRN PRN Reason: Dry Eyes Aspirin (Aspirin Chewable) 81 mg PO DAILY [facility] Last Admin: 02/07/18 09:38 Dose: 81 mg Atorvastatin Calcium (Lipitor) 40 mg PO HS [facility] Last Admin: 02/06/18 20:58 Dose: 40 mg Bacitracin Zinc (Bacitracin) 1 pk TOP TID [facility] Last Admin: 02/07/18 15:19 Dose: 1 pk Bisacodyl (Dulcolax) 10 mg PO DAILYPRN PRN PRN Reason: Constipation Bisacodyl (Dulcolax) 10 mg [place] DAILYPRN PRN PRN Reason: Constipation Calcium Carbonate (Tums) 1,000 mg PO Q4H PRN PRN Reason: Heartburn or Indigestion Carvedilol (Coreg) 3.125 mg PO BID-WM [facility] Last Admin: 02/07/18 18:14 Dose: 3.125 mg Dextrose/Water (Dextrose 50%) 25 gm SLOW IVP PRN PRN PRN Reason: Hypoglycemia Digoxin (Lanoxin) 0.25 mg PO QAM [facility] Last Admin: 02/07/18 09:38 Dose: 0.25 mg Diphenhydramine HCl (Benadryl) 25 mg PO Q6H PRN PRN Reason: Itching Last Admin: 02/04/18 10:30 Dose: 25 mg Famotidine (Pepcid) 20 mg PO BID [facility] Last Admin: 02/07/18 09:38 Dose: 20 mg Furosemide (Lasix) 40 mg SLOW IVP 0600,1400 [facility] Last Admin: 02/07/18 15:18 Dose: 40 mg Gabapentin (Neurontin) 100 mg PO TID [facility] Last Admin: 02/07/18 15:19 Dose: 100 mg Glipizide (Glucotrol) 10 mg PO DAILY [facility] Last Admin: 02/07/18 09:38 Dose: 10 mg Glucagon (Glucagon) 1 mg IM PRN PRN PRN Reason: Hypoglycemia Guaifenesin (Robitussin Sf) 200 mg PO Q4H PRN PRN Reason: Cough Hydralazine HCl (Apresoline) 10 mg SLOW IVP Q4H PRN PRN Reason: SBP > 180 and HR < 70 Dextrose/Water (D5w) 1,000 mls @ 0 mls/hr IV .Q0M PRN PRN Reason: Hypoglycemia Insulin Glargine 10 units/ (Miscellaneous Medication) 0.1 mls @ 0 mls/hr [place] [facility] Last Admin: 02/07/18 09:36 Dose: 0.1 mls Insulin Glargine 10 units/ (Miscellaneous Medication) 0.1 mls @ 0 mls/hr SC [facility] Insulin Human Lispro (Humalog) 0 units SC .MODERATE SLIDING SC PRN PRN Reason: Moderate Correctional Scale Last Admin: 02/07/18 18:14 Dose: 4 unit Insulin Human Lispro (Humalog) 0 units SC .BEDTIME SLIDING SC PRN PRN Reason: Bedtime Correctional Scale Last Admin: 02/05/18 21:22 Dose: 2 unit Levothyroxine Sodium (Synthroid) 25 mcg PO 0600 [facility] Last Admin: 02/07/18 05:29 Dose: 25 mcg Lisinopril (Zestril) 5 mg PO DAILY [facility] Last Admin: 12/03/18 09:38 Dose: 5 mg Loperamide HCl (Imodium) 2 mg PO PRN PRN PRN Reason: Diarrhea/Loose Stools Magnesium Chloride (Slow-Mag) 64 mg PO BID [facility] Last Admin: 02/07/18 09:47 Dose: 64 mg Metolazone (Zaroxolyn) 5 mg PO 0830 [facility] Last Admin: 02/07/18 09:38 Dose: 5 mg Mineral Oil/White Petrolatum (Eucerin Cream) 0 gm TOP BIDPRN PRN PRN Reason: Dry Skin Nitroglycerin (Nitrostat) 0.4 mg SL Q5MIN PRN PRN Reason: Chest Pain Ondansetron HCl (Zofran Odt) 4 mg PO Q6H PRN PRN Reason: Nausea/Vomiting Ondansetron HCl (Zofran) 4 mg IVP Q6H PRN PRN Reason: Nausea/Vomiting Potassium Chloride (K-Dur) 40 meq PO QID-WM [facility] Last Admin: 02/07/18 18:13 Dose: 40 meq Senna/Docusate Sodium (Senokot S) 2 tab PO BID PRN PRN Reason: Constipation Sodium Chloride (Novice Nasal [place] 0.65%) 0 ml EA NARE QIDPRN PRN PRN Reason: Nasal Congestion Sodium Chloride (Flush - Normal Saline) 10 ml IVF Q12HR [facility] Last Admin: 02/07/18 09:36 Dose: 10 ml Sodium Chloride (Flush - Normal Saline) 10 ml IVF PRN PRN PRN Reason: Saline Flush Last Admin: 02/04/18 14:05 Dose: 10 ml Throat Lozenges (Cepastat Lozenges) 1 reggie PO Q2H PRN PRN Reason: Sore Throat Zolpidem Tartrate (Ambien) 5 mg PO HSPRN PRN PRN Reason: Insomnia Last Admin: 02/04/18 20:18 Dose: 5 mg
[2018-02-07] MEDS: Atorvastatin Calcium 40 MG TAB PO SCH (21:41)
[2018-02-08] MEDS: HYDROcodone/Acetaminophen 5/325 mg Tablet PO PRN ×3 (02:44→21:11)
[2018-02-08] MEDS: Furosemide 40 MG/4 ML VIAL SLOW IVP SCH ×2 (06:29→14:20)
[2018-02-08 06:32] LABS: BUN (Urea Nitrogen) 28 mg/dL (8.4-25.7); Calc. Creatinine Clearance 102 mL/min (70-130); Calcium 9.8 mg/dL (7.8-10.44); Estimated GFR-MDRD 53; Glucose 160 mg/dL (80-115); Magnesium 1.7 mg/dL (1.6-2.6)
[2018-02-08 06:37] VITALS: BMI 42.3
[2018-02-08 06:43] LABS: Anion Gap 17 mmol/L (10-20); Carbon Dioxide 34 mmol/L (23-31); Chloride 92 mmol/L (98-107); Potassium 3.6 mmol/L (3.5-5.1); Sodium 139 mmol/L (136-145)
[2018-02-08] MEDS: Magnesium Chloride 64 MG TAB PO SCH ×2 (08:07→21:11)
[2018-02-08] MEDS: Insulin Glargine 10 UNITS in Pre-Filled Syringe 1 EACH SC SCH ×2 (08:07→21:13)
[2018-02-08] MEDS: Metolazone 5 MG TAB PO SCH (08:08)
[2018-02-08] MEDS: Bacitracin Zinc 1 Packet TOP SCH ×3 (08:08→21:13)
[2018-02-08] MEDS: HumaLOG 300 UNITS/3 ML VIAL SC PRN ×4 (08:08→21:14)
[2018-02-08] MEDS: Digoxin 0.25 MG TAB PO SCH (08:09)
[2018-02-08] MEDS: Allopurinol 100 MG TAB PO SCH (08:09)
[2018-02-08] MEDS: glipiZIDE 10 MG TAB PO SCH (08:09)
[2018-02-08] MEDS: Lisinopril 5 MG TAB PO SCH (08:09)
[2018-02-08] MEDS: Apixaban 5 MG TAB PO SCH ×2 (08:09→21:12)
[2018-02-08] MEDS: Carvedilol 3.125 MG TAB PO SCH ×2 (08:10→18:20)
[2018-02-08] MEDS: Gabapentin 100 MG CAP PO SCH ×3 (08:10→21:12)
[2018-02-08] MEDS: Potassium Chloride 20 MEQ TAB PO SCH ×4 (08:10→21:12)
[2018-02-08] MEDS: Famotidine 20 MG TAB PO SCH ×2 (08:10→21:11)
[2018-02-08] MEDS: diphenhydrAMINE 25 MG CAP PO PRN (12:01)
--- NOTE | 2018-02-08 14:29 | PDOC.CTH ---
<Catalina Glaser - Last Filed: 02/08/18 14:29> Cardiology Progress Note - Subjective The pt seen and examined. No overnight events. No cardiac complaints. He has walked to bathroom without any difficulties. However, he has not walked around the floor due to pain to his BLE. - Objective Vital Signs Temp Pulse Resp BP BP BP Pulse Ox 02/08/18 11:55 77 14 132/92 H 93 L 02/08/18 08:09 73 138/79 02/08/18 07:15 99.4 F 73 12 138/79 92 L 02/08/18 04:00 98.7 F 62 18 123/76 100 Admit Weight 323 lb 12.8 oz Weight 286 lb 11.2 oz 02/07/18 02/08/18 02/09/18 06:59 06:59 06:59 Intake Total 400 1500 Output Total 1057 3850 Balance -591 -1062 - Physical Examination General/Neuro: alert & oriented x3 Neck: no JVD present Lungs: CTA, other: (diminished at bases) Heart: other: (irregular) Abdomen: soft Extremities: other: (3+ pitting and 4+ pitting BLE edema) - Telemetry Telemetry Rhythm: AFib - Labs Result Diagrams: 02/07/18 09:50 02/08/18 05:42 Troponin/CKMB Troponin I 0.206 ng/mL (< 0.028) H 01/29/18 02:51 - Assessment/Plan 1. Acute on chronic combined HF - Good urine outpt with Metolazone. On BBlocker , JONNY, Lasix IV BID. Jonny Wrap to BLE. 2. Chronic Afib with RVR - Well controlled HR with Digogixn and Bblocker; on Eliquis. 3. HTN - stable 4. RBBB - stable 5. DM type 2 - DM education given; Dietitian consult 6. NADEEM on Cpap - Cpap @ HS 7. Hypothyrodism - Levothyroxin was started from this AM by PCP 8. Obese - weight management education given to the pt. MAR reviewed * When the pt. is stable, then consider cardiac cath. Review of Systems - Review of Systems Constitutional: reports: no symptoms reported EENTM: reports: no symptoms reported Respiratory: reports: no symptoms reported Cardiac (ROS): reports: no symptoms reported ABD/GI: reports: no symptoms reported : reports: no symptoms reported Musculoskeletal: reports: see HPI <Dallas Silva - Last Filed: 02/08/18 17:07> Cardiology Progress Note - Objective Vital Signs Temp Pulse Resp BP BP Pulse Ox 02/08/18 15:07 98 F 73 14 143/81 H 92 L 02/08/18 11:55 77 14 132/92 H 93 L 02/08/18 08:09 73 138/79 02/08/18 07:15 99.4 F 73 12 138/79 92 L Admit Weight 323 lb 12.8 oz Weight 286 lb 11.2 oz 02/07/18 02/08/18 02/09/18 06:59 06:59 06:59 Intake Total 400 1500 Output Total 1057 2460 Balance -227 -8221 - Labs Result Diagrams: 02/07/18 09:50 02/08/18 05:42 Troponin/CKMB Troponin I 0.206 ng/mL (< 0.028) H 01/29/18 02:51 - Assessment/Plan Pt. seen and eval. by me. i agree with the A/P by the TRAUMA SURGEON. Chest clear. irreg/ irreg. Plan for cardiac cath in AM to eval. cors and to re-evaluate LV function.
[2018-02-08] MEDS: ALPRAZolam 0.25 MG TAB PO PRN (15:17)
[2018-02-08] MEDS ORDERED: Communication Order-Pharmacy FS SCH (17:00)
[2018-02-08] MEDS: Atorvastatin Calcium 40 MG TAB PO SCH (21:11)
--- NOTE | 2018-02-08 21:51 | PDOC.PN ---
- Subjective Encounter Start Date: 02/08/18 Encounter Start Time: 18:30 Patient seen and examined for CHF. SOB improving. No new complaints. No overnight events - Objective Resuscitation Status - Order Detail: 02/02/18 18:35 Resuscitation Status Routine Resuscitation Status: FULL: Full Resuscitation Discussed with: confirmed with patient MAR Reviewed: Yes Vital Signs & Weight: Vital Signs (12 hours) Temp Pulse Resp BP Pulse Ox 02/08/18 15:07 98 F 73 14 143/81 H 92 L 02/08/18 11:55 77 14 132/92 H 93 L Weight Admit Weight 323 lb 12.8 oz Weight 286 lb 11.2 oz I&O: 02/07/18 02/08/18 02/09/18 06:59 06:59 06:59 Intake Total 400 1500 500 Output Total 1057 3850 2550 [facility]625 -0430 -2930 Result Diagrams: 02/07/18 09:50 02/08/18 05:42 Additional Labs: Accuchecks 02/08/18 02/08/18 02/08/18 20:49 17:04 10:53 POC Glucose 257 H 194 H 185 H 02/08/18 05:31 POC Glucose 153 H EKG Reviewed by me: Yes (Tele Afib) Phys Exam - Physical Examination Constitutional: NAD Respiratory: no wheezing, no rhonchi Cardiovascular: RRR, no rub Gastrointestinal: soft, non-tender, positive bowel sounds Musculoskeletal: edema present Neurological: moves all 4 limbs Dx/Plan - Plan 1. Acute on chronic systolic/diastolic HF - improving 2. Afib with RVR - rate controlled, on anticoag 3. HTN 4. NADEEM on CPAP 5. DM type 2 6. Hypokalemia/Hypomagnessemia 7. Depression 8. Morbid Obesity/ Elevated troponin due to demand ischemia/Thrombocytopenia/ CKD 3 PLAN: Cont IV diuresis Cont current meds including Coreg/Digoxin/Lisinopril AM labs Increase Lantus 20 units AM Review of Systems - Review of Systems Respiratory: negative: Cough, Dry, Shortness of Breath, Hemoptysis, SOB with Excertion, Pleuritic Pain, Sputum, Wheezing Gastrointestinal: negative: Nausea, Vomiting, Abdominal Pain, Diarrhea, Constipation, Melena, Hematochezia, Other - Medications/Allergies Allergies/Adverse Reactions: Allergies Allergy/AdvReac Type Severity Reaction Status Date / Time No Known Allergies Allergy Verified 11/24/18 03:22 Medications: Current Medications Acetaminophen (Tylenol) 650 mg PO Q4H PRN PRN Reason: Headache/Fever/Mild Pain (1-3) Hydrocodone Bitart/Acetaminophen ([place] 5/325) 1 tab PO Q4H PRN PRN Reason: Pain 4-6 Last Admin: 02/08/18 21:11 Dose: 1 tab Albuterol/Ipratropium (Duoneb) 3 ml NEB [id number] PRN PRN Reason: SOB &/or Wheezing Last Admin: 02/01/18 08:52 Dose: 3 ml Allopurinol (Zyloprim) 100 mg PO DAILY [facility] Last Admin: 02/08/18 08:09 Dose: 100 mg Alprazolam (Xanax) 0.25 mg PO DAILYPRN PRN PRN Reason: Anxiety Last Admin: 02/08/18 15:17 Dose: 0.25 mg Apixaban (Eliquis) 5 mg PO BID [facility] Last Admin: 02/08/18 21:12 Dose: 5 mg Artificial Tears (Tears Renewed 15ml Bottle) 2 drop EA EYE PRN PRN PRN Reason: Dry Eyes Aspirin (Aspirin Chewable) 81 mg PO DAILY [facility] Last Admin: 02/08/18 08:08 Dose: 81 mg Atorvastatin Calcium (Lipitor) 40 mg PO HS [facility] Last Admin: 02/08/18 21:11 Dose: 40 mg Bacitracin Zinc (Bacitracin) 1 pk TOP TID [facility] Last Admin: 02/08/18 21:13 Dose: 1 pk Bisacodyl (Dulcolax) 10 mg PO DAILYPRN PRN PRN Reason: Constipation Bisacodyl (Dulcolax) 10 mg [place] DAILYPRN PRN PRN Reason: Constipation Calcium Carbonate (Tums) 1,000 mg PO Q4H PRN PRN Reason: Heartburn or Indigestion Carvedilol (Coreg) 3.125 mg PO BID-[facility] Last Admin: 02/08/18 18:20 Dose: 3.125 mg Dextrose/Water (Dextrose 50%) 25 gm SLOW IVP PRN PRN PRN Reason: Hypoglycemia Digoxin (Lanoxin) 0.25 mg PO QAM [facility] Last Admin: 02/08/18 08:09 Dose: 0.25 mg Diphenhydramine HCl (Benadryl) 25 mg PO Q6H PRN PRN Reason: Itching Last Admin: 02/08/18 12:01 Dose: 25 mg Famotidine (Pepcid) 20 mg PO BID [facility] Last Admin: 02/08/18 21:11 Dose: 20 mg Furosemide (Lasix) 40 mg SLOW IVP 0600,1400 [facility] Last Admin: 02/08/18 14:20 Dose: 40 mg Gabapentin (Neurontin) 100 mg PO TID [facility] Last Admin: 02/08/18 21:12 Dose: 100 mg Glipizide (Glucotrol) 10 mg PO DAILY [facility] Last Admin: 02/08/18 08:09 Dose: 10 mg Glucagon (Glucagon) 1 mg IM PRN PRN PRN Reason: Hypoglycemia Guaifenesin (Robitussin Sf) 200 mg PO Q4H PRN PRN Reason: Cough Hydralazine HCl (Apresoline) 10 mg SLOW IVP Q4H PRN PRN Reason: SBP > 180 and HR < 70 Dextrose/Water (D5w) 1,000 mls @ 0 mls/hr IV .Q0M PRN PRN Reason: Hypoglycemia Insulin Glargine 10 units/ (Miscellaneous Medication) 0.1 mls @ 0 mls/hr SC HS [facility] Last Admin: 02/08/18 21:13 Dose: 0.1 mls Insulin Glargine 20 units/ (Miscellaneous Medication) 0.2 mls @ 0 mls/hr SC QAM [facility] Insulin Human Lispro (Humalog) 0 units SC .MODERATE SLIDING SC PRN PRN Reason: Moderate Correctional Scale Last Admin: 02/08/18 18:19 Dose: 2 unit Insulin Human Lispro (Humalog) 0 units SC .BEDTIME SLIDING SC PRN PRN Reason: Bedtime Correctional Scale Last Admin: 02/08/18 21:14 Dose: 3 unit Levothyroxine Sodium (Synthroid) 25 mcg PO 0600 [facility] Last Admin: 02/07/18 05:29 Dose: 25 mcg Lisinopril (Zestril) 5 mg PO DAILY [facility] Last Admin: 02/08/18 08:09 Dose: 5 mg Loperamide HCl (Imodium) 2 mg PO PRN PRN PRN Reason: Diarrhea/Loose Stools Magnesium Chloride (Slow-Mag) 64 mg PO BID [facility] Last Admin: 02/08/18 21:11 Dose: 64 mg Metolazone (Zaroxolyn) 5 mg PO 0830 [facility] Last Admin: 02/08/18 08:08 Dose: 5 mg Mineral Oil/White Petrolatum (Eucerin Cream) 0 gm TOP BIDPRN PRN PRN Reason: Dry Skin Last Admin: 02/08/18 15:09 Dose: 1 applic Miscellaneous Information (Communication Order-Pharmacy) 0 each FS ONE [facility] Stop: 02/09/18 17:01 Nitroglycerin (Nitrostat) 0.4 mg SL Q5MIN PRN PRN Reason: Chest Pain Ondansetron HCl (Zofran Odt) 4 mg PO Q6H PRN PRN Reason: Nausea/Vomiting Ondansetron HCl (Zofran) 4 mg IVP Q6H PRN PRN Reason: Nausea/Vomiting Potassium Chloride (K-Dur) 40 meq PO QID-WM [facility] Last Admin: 02/08/18 21:12 Dose: 40 meq Senna/Docusate Sodium (Senokot S) 2 tab PO BID PRN PRN Reason: Constipation Sodium Chloride (Major Nasal [place] 0.65%) 0 ml EA NARE QIDPRN PRN PRN Reason: Nasal Congestion Sodium Chloride (Flush - Normal Saline) 10 ml IVF Q12HR [facility] Last Admin: 02/08/18 21:13 Dose: 10 ml Sodium Chloride (Flush - Normal Saline) 10 ml IVF PRN PRN PRN Reason: Saline Flush Last Admin: 02/04/18 14:05 Dose: 10 ml Throat Lozenges (Cepastat Lozenges) 1 reggie PO Q2H PRN PRN Reason: Sore Throat Zolpidem Tartrate (Ambien) 5 mg PO HSPRN PRN PRN Reason: Insomnia Last Admin: 02/04/18 20:18 Dose: 5 mg
[2018-02-09] MEDS: Levothyroxine Sodium 25 MCG TAB PO SCH (05:09)
[2018-02-09] MEDS: Famotidine 20 MG TAB PO SCH ×2 (05:10→20:09)
[2018-02-09] MEDS: Digoxin 0.25 MG TAB PO SCH (05:10)
[2018-02-09] MEDS: Lisinopril 5 MG TAB PO SCH (05:11)
[2018-02-09] MEDS: Metolazone 5 MG TAB PO SCH (05:11)
[2018-02-09] MEDS: Allopurinol 100 MG TAB PO SCH (05:12)
[2018-02-09] MEDS: Carvedilol 3.125 MG TAB PO SCH ×2 (05:12→18:06)
[2018-02-09] MEDS: Magnesium Chloride 64 MG TAB PO SCH ×2 (05:12→21:54)
[2018-02-09] MEDS: Potassium Chloride 20 MEQ TAB PO SCH ×4 (05:12→20:09)
[2018-02-09] MEDS: Gabapentin 100 MG CAP PO SCH ×2 (05:12→15:29)
[2018-02-09] MEDS: HYDROcodone/Acetaminophen 5/325 mg Tablet PO PRN ×3 (05:13→21:53)
[2018-02-09 05:44] LABS: Hemoglobin 12.7 g/dL (14.0-18.0); Platelet Count 80 thou/uL (130-400)
[2018-02-09 06:01] LABS: Anion Gap 14 mmol/L (10-20); BUN (Urea Nitrogen) 27 mg/dL (8.4-25.7); Calc. Creatinine Clearance 116 mL/min (70-130); Calcium 9.4 mg/dL (7.8-10.44); Carbon Dioxide 37 mmol/L (23-31); Chloride 93 mmol/L (98-107); Estimated GFR-MDRD 62; Glucose 148 mg/dL (80-115); Magnesium 1.6 mg/dL (1.6-2.6); Potassium 3.6 mmol/L (3.5-5.1); Sodium 140 mmol/L (136-145)
[2018-02-09] MEDS ORDERED: Lidocaine 1% (PF) 30 ML VIAL ONE (07:19)
[2018-02-09] MEDS ORDERED: Verapamil 5 MG/2 ML VIAL ONE (07:22)
[2018-02-09] MEDS ORDERED: Nitroglycerin 100MG/250ML BOT 0 ML ONE (07:22)
[2018-02-09] MEDS ORDERED: Heparin 10,000 UNITS/1 ML VIAL ONE (07:22)
[2018-02-09] MEDS ORDERED: Nitroglycerin 100MG/250ML BOT 250 ML ONE (07:23)
[2018-02-09] MEDS ORDERED: Midazolam HCl 2 mg/2 ml Vial ONE (08:19)
--- NOTE | 2018-02-09 08:58 | PDOC.CTH ---
Cardiology Progress Note - Subjective pt. seen and eval. he denies chest pain or SOB. The leg edema is improving. Records from [place]. [place], indicated nl systolic EF but diastolic CHF. His EF is now significantly decreased but i can not say how long it has been this way. He continues to diurese - Objective Vital Signs Temp Pulse Resp BP BP Pulse Ox 02/09/18 05:11 60 136/86 02/09/18 05:10 60 02/09/18 04:00 97.1 F L 58 L 20 136/86 98 Admit Weight 323 lb 12.8 oz Weight 286 lb 11.2 oz 02/08/18 02/09/18 02/10/18 06:59 06:59 06:59 Intake Total 1500 500 Output Total 3850 2550 Balance -2349 - Physical Examination General/Neuro: alert & oriented x3 Neck: carotid US brisk Lungs: CTA Heart: other: (igger/irreg.) Abdomen: soft, other: (obese) Extremities: + edema B - Labs Result Diagrams: 02/09/18 04:52 02/09/18 04:52 Troponin/CKMB Troponin I 0.206 ng/mL (< 0.028) H 01/29/18 02:51 - Assessment/Plan 1. 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 and non-compliance. EF < 20%. Suggest Life-Vest and if no improvement with aggressive medical therapy and medication compliance then he will be a candidate for an implantable AICD. 2. Afib: chronic. Rate controlled. 3. Diastolic heart failure. Continue medical therapy. Titrate meds as tolerated. 4. Edema of lower extremities with cellulitis. Improving with antibiotics and diuretics. 5. Morbid obesity. 6. Depression/anxiety. 7. NADEEM: wears a CPAP mask. 8. DMII: per primary service. Reasonably well controlled. 9. HTN
[2018-02-09] MEDS ORDERED: Nitroglycerin 0.4 MG TAB (25 Tab Bottle) SL PRN (09:24)
[2018-02-09] MEDS ORDERED: traMADol HCl 50 MG TAB PO PRN (09:24)
[2018-02-09] MEDS ORDERED: Acetaminophen/Codeine 30-300mg Tablet PO PRN ×2 (09:24)
[2018-02-09] MEDS ORDERED: Sodium Chloride 0.9% 200 ML IV PRN (09:24)
[2018-02-09] MEDS ORDERED: Iopamidol 370 76% 50 ML VIAL FS ONE (10:55)
[2018-02-09] MEDS ORDERED: Iopamidol 370 76% 100 ML VIAL ONE (10:55)
[2018-02-09] MEDS: glipiZIDE 10 MG TAB PO SCH (11:37)
[2018-02-09] MEDS: Furosemide 40 MG/4 ML VIAL SLOW IVP SCH ×2 (11:37→15:28)
[2018-02-09] MEDS: Insulin Glargine 20 UNITS in Pre-Filled Syringe 1 EACH SC SCH (11:38)
[2018-02-09] MEDS: Bacitracin Zinc 1 Packet TOP SCH ×3 (11:38→20:09)
[2018-02-09] MEDS: Apixaban 5 MG TAB PO SCH ×2 (11:38→20:09)
--- NOTE | 2018-02-09 13:23 | PDOC.PN ---
- Subjective Encounter Start Date: 02/09/18 Encounter Start Time: 08:00 Patient seen and examined for CHF. SOB improving. No CP. s/p Cath. No new complaints. No overnight events - Objective Resuscitation Status - Order Detail: 02/02/18 18:35 Resuscitation Status Routine Resuscitation Status: FULL: Full Resuscitation Discussed with: confirmed with patient MAR Reviewed: Yes Vital Signs & Weight: Vital Signs (12 hours) Temp Pulse Resp BP BP Pulse Ox 02/09/18 09:15 97.5 F L 110 H 18 146/74 H 95 02/09/18 05:11 60 136/86 02/09/18 05:10 60 02/09/18 04:00 97.1 F L 58 L 20 136/86 98 Weight Admit Weight 323 lb 12.8 oz Weight 286 lb 11.2 oz I&O: 02/08/18 02/09/18 02/10/18 06:59 06:59 06:59 Intake Total 1500 500 Output Total 3850 2550 Balance -2349 Result Diagrams: 02/09/18 04:52 02/09/18 04:52 Additional Labs: Accuchecks 02/09/18 02/09/18 02/08/18 10:42 06:06 20:49 POC Glucose 156 H 165 H 257 H 02/08/18 17:04 POC Glucose 194 H Phys Exam - Physical Examination Constitutional: NAD Respiratory: no wheezing, no rhonchi Few rales at bases Cardiovascular: RRR, no rub Gastrointestinal: soft, non-tender, positive bowel sounds Musculoskeletal: edema present Neurological: moves all 4 limbs Dx/Plan - Plan DVT proph w/SCDs 1. Acute on chronic systolic/diastolic HF - diuresing well 2. Afib with RVR - rate controlled, on anticoag 3. HTN 4. NADEEM on CPAP 5. DM type 2 6. Hypokalemia/Hypomagnessemia 7. Depression 8. Morbid Obesity/ Elevated troponin due to demand ischemia/Thrombocytopenia/ CKD 3 PLAN: Cont IV Lasix with Metolazone Daily BMP s/p Cath Cont current meds including Coreg/Digoxin/Lisinopril Cont Lantus with sliding scale Lifevest Increase Gabapentin dose Review of Systems - Review of Systems Respiratory: negative: Cough, Dry, Shortness of Breath, Hemoptysis, SOB with Excertion, Pleuritic Pain, Sputum, Wheezing Cardiovascular: edema. negative: chest pain, palpitations, orthopnea, paroxysmal nocturnal dyspnea, light headedness, other Neurological: negative: Weakness, Numbness, Incoordination, Change in Speech, Confusion, Seizures, Other (left leg neuropathic pain) - Medications/Allergies Allergies/Adverse Reactions: Allergies Allergy/AdvReac Type Severity Reaction Status Date / Time No Known Allergies Allergy Verified 01/29/18 03:22 Medications: Current Medications Acetaminophen (Tylenol) 650 mg PO Q4H PRN PRN Reason: Headache/Fever/Mild Pain (1-3) Acetaminophen/Codeine Phosphate (Tylenol #3) 1 tab PO Q4H PRN PRN Reason: Mild Pain (1-3) Acetaminophen/Codeine Phosphate (Tylenol #3) 2 tab PO Q4H PRN PRN Reason: Moderate Pain (4-6) Hydrocodone Bitart/Acetaminophen ([place] 5/325) 1 tab PO Q4H PRN PRN Reason: Pain 4-6 Last Admin: 02/09/18 05:13 Dose: 1 tab Albuterol/Ipratropium (Duoneb) 3 ml NEB [id number] PRN PRN Reason: SOB &/or Wheezing Last Admin: 02/01/18 08:52 Dose: 3 ml Allopurinol (Zyloprim) 100 mg PO DAILY [facility] Last Admin: 02/09/18 05:12 Dose: 100 mg Alprazolam (Xanax) 0.25 mg PO DAILYPRN PRN PRN Reason: Anxiety Last Admin: 02/08/18 15:17 Dose: 0.25 mg Apixaban (Eliquis) 5 mg PO BID [facility] Last Admin: 02/09/18 11:38 Dose: 5 mg Artificial Tears (Tears Renewed 15ml Bottle) 2 drop EA EYE PRN PRN PRN Reason: Dry Eyes Aspirin (Aspirin Chewable) 81 mg PO DAILY [facility] Last Admin: 02/09/18 05:12 Dose: 81 mg Atorvastatin Calcium (Lipitor) 40 mg PO HS [facility] Last Admin: 02/08/18 21:11 Dose: 40 mg Bacitracin Zinc (Bacitracin) 1 pk TOP TID [facility] Last Admin: 02/09/18 11:38 Dose: 1 pk Bisacodyl (Dulcolax) 10 mg PO DAILYPRN PRN PRN Reason: Constipation Bisacodyl (Dulcolax) 10 mg [place] DAILYPRN PRN PRN Reason: Constipation Calcium Carbonate (Tums) 1,000 mg PO Q4H PRN PRN Reason: Heartburn or Indigestion Carvedilol (Coreg) 3.125 mg PO BID-[facility] Last Admin: 02/09/18 05:12 Dose: 3.125 mg Dextrose/Water (Dextrose 50%) 25 gm SLOW IVP PRN PRN PRN Reason: Hypoglycemia Digoxin (Lanoxin) 0.25 mg PO QAM [facility] Last Admin: 02/09/18 05:10 Dose: 0.25 mg Diphenhydramine HCl (Benadryl) 25 mg PO Q6H PRN PRN Reason: Itching Last Admin: 02/08/18 12:01 Dose: 25 mg Famotidine (Pepcid) 20 mg PO BID [facility] Last Admin: 02/09/18 05:10 Dose: 20 mg Furosemide (Lasix) 40 mg SLOW IVP 0600,1400 [facility] Last Admin: 02/09/18 11:37 Dose: Not Given Gabapentin (Neurontin) 100 mg PO TID [facility] Last Admin: 02/09/18 05:12 Dose: 100 mg Glipizide (Glucotrol) 10 mg PO DAILY [facility] Last Admin: 02/09/18 11:37 Dose: 10 mg Glucagon (Glucagon) 1 mg IM PRN PRN PRN Reason: Hypoglycemia Guaifenesin (Robitussin Sf) 200 mg PO Q4H PRN PRN Reason: Cough Hydralazine HCl (Apresoline) 10 mg SLOW IVP Q4H PRN PRN Reason: SBP > 180 and HR < 70 Dextrose/Water (D5w) 1,000 mls @ 0 mls/hr IV .Q0M PRN PRN Reason: Hypoglycemia Insulin Glargine 10 units/ (Miscellaneous Medication) 0.1 mls @ 0 mls/hr SC HS [facility] Last Admin: 02/08/18 21:13 Dose: 0.1 mls Insulin Glargine 20 units/ (Miscellaneous Medication) 0.2 mls @ 0 mls/hr SC QAM [facility] Last Admin: 02/09/18 11:38 Dose: 0.2 mls Sodium Chloride (Normal Saline 0.9%) 200 mls @ 0 mls/hr IV ONE PRN PRN Reason: Bolus PRN SBP < 90 mm Hg Stop: 02/12/18 09:25 Insulin Human Lispro (Humalog) 0 units SC .MODERATE SLIDING SC PRN PRN Reason: Moderate Correctional Scale Last Admin: 02/08/18 18:19 Dose: 2 unit Insulin Human Lispro (Humalog) 0 units SC .BEDTIME SLIDING SC PRN PRN Reason: Bedtime Correctional Scale Last Admin: 02/08/18 21:14 Dose: 3 unit Levothyroxine Sodium (Synthroid) 25 mcg PO 0600 [facility] Last Admin: 02/09/18 05:09 Dose: 25 mcg Lisinopril (Zestril) 5 mg PO DAILY [facility] Last Admin: 02/09/18 05:11 Dose: 5 mg Loperamide HCl (Imodium) 2 mg PO PRN PRN PRN Reason: Diarrhea/Loose Stools Magnesium Chloride (Slow-Mag) 64 mg PO BID [facility] Last Admin: 02/09/18 05:12 Dose: 64 mg Metolazone (Zaroxolyn) 5 mg PO 0830 [facility] Last Admin: 02/09/18 05:11 Dose: 5 mg Mineral Oil/White Petrolatum (Eucerin Cream) 0 gm TOP BIDPRN PRN PRN Reason: Dry Skin Last Admin: 02/08/18 15:09 Dose: 1 applic Miscellaneous Information (Communication Order-Pharmacy) 0 each FS ONE [facility] Stop: 02/09/18 17:01 Nitroglycerin (Nitrostat) 0.4 mg SL Q5MIN PRN PRN Reason: Chest Pain Nitroglycerin (Nitrostat) 0.4 mg SL Q5MIN PRN PRN Reason: Chest Pain Ondansetron HCl (Zofran Odt) 4 mg PO Q6H PRN PRN Reason: Nausea/Vomiting Ondansetron HCl (Zofran) 4 mg IVP Q6H PRN PRN Reason: Nausea/Vomiting Potassium Chloride (K-Dur) 40 meq PO QID-[facility] Last Admin: 02/09/18 11:39 Dose: 40 meq Senna/Docusate Sodium (Senokot S) 2 tab PO BID PRN PRN Reason: Constipation Sodium Chloride ([place] Nasal [place] 0.65%) 0 ml EA NARE QIDPRN PRN PRN Reason: Nasal Congestion Sodium Chloride (Flush - Normal Saline) 10 ml IVF Q12HR [facility] Last Admin: 02/09/18 11:38 Dose: 10 ml Sodium Chloride (Flush - Normal Saline) 10 ml IVF PRN PRN PRN Reason: Saline Flush Last Admin: 02/04/18 14:05 Dose: 10 ml Throat Lozenges (Cepastat Lozenges) 1 reggie PO Q2H PRN PRN Reason: Sore Throat Tramadol HCl (Ultram) 50 mg PO Q6H PRN PRN Reason: Moderate Pain (4-6) Zolpidem Tartrate (Ambien) 5 mg PO HSPRN PRN PRN Reason: Insomnia Last Admin: 02/04/18 20:18 Dose: 5 mg
[2018-02-09] MEDS: diphenhydrAMINE 25 MG CAP PO PRN (20:09)
[2018-02-09] MEDS: Atorvastatin Calcium 40 MG TAB PO SCH (20:09)
[2018-02-09] MEDS ORDERED: Gabapentin 100 MG CAP PO SCH (21:00)
[2018-02-09] MEDS: ALPRAZolam 0.25 MG TAB PO PRN (21:53)
[2018-02-09] MEDS: Insulin Glargine 10 UNITS in Pre-Filled Syringe 1 EACH SC SCH (21:54)
[2018-02-10] MEDS: Furosemide 40 MG/4 ML VIAL SLOW IVP SCH ×2 (05:17→14:35)
[2018-02-10] MEDS: Levothyroxine Sodium 25 MCG TAB PO SCH (05:18)
[2018-02-10] MEDS ORDERED: Gabapentin 100 MG CAP PO SCH (09:00)
[2018-02-10] MEDS: glipiZIDE 10 MG TAB PO SCH (09:44)
[2018-02-10] MEDS: Bacitracin Zinc 1 Packet TOP SCH ×3 (09:44→21:02)
[2018-02-10] MEDS: Apixaban 5 MG TAB PO SCH ×2 (09:44→21:01)
[2018-02-10] MEDS: Metolazone 5 MG TAB PO SCH (09:44)
[2018-02-10] MEDS: Famotidine 20 MG TAB PO SCH ×2 (09:45→21:01)
[2018-02-10] MEDS: Lisinopril 5 MG TAB PO SCH (09:45)
[2018-02-10] MEDS: Insulin Glargine 20 UNITS in Pre-Filled Syringe 1 EACH SC SCH (09:45)
[2018-02-10] MEDS: Potassium Chloride 20 MEQ TAB PO SCH ×4 (09:45→20:59)
[2018-02-10] MEDS: Allopurinol 100 MG TAB PO SCH (09:45)
[2018-02-10] MEDS: Carvedilol 3.125 MG TAB PO SCH ×2 (09:45→17:51)
[2018-02-10] MEDS: Digoxin 0.25 MG TAB PO SCH (09:45)
[2018-02-10] MEDS: Magnesium Chloride 64 MG TAB PO SCH ×2 (09:51→21:42)
[2018-02-10 10:09] LABS: Hemoglobin 13.6 g/dL (14.0-18.0); Platelet Count 95 thou/uL (130-400)
[2018-02-10 10:14] LABS: Anion Gap 13 mmol/L (10-20); BUN (Urea Nitrogen) 25 mg/dL (8.4-25.7); Calc. Creatinine Clearance 105 mL/min (70-130); Calcium 10.1 mg/dL (7.8-10.44); Carbon Dioxide 37 mmol/L (23-31); Chloride 94 mmol/L (98-107); Estimated GFR-MDRD 57; Glucose 144 mg/dL (80-115); Magnesium 1.6 mg/dL (1.6-2.6); Potassium 3.9 mmol/L (3.5-5.1); Sodium 140 mmol/L (136-145)
[2018-02-10] MEDS: ALPRAZolam 0.25 MG TAB PO PRN (12:17)
[2018-02-10] MEDS: HYDROcodone/Acetaminophen 5/325 mg Tablet PO PRN ×2 (12:17→21:13)
--- NOTE | 2018-02-10 13:21 | PDOC.CTH ---
<Catalina Glaser - Last Filed: 02/10/18 13:19> Cardiology Progress Note - Subjective The tp seen and examined. No overnight events. No cardiac complaints. - Objective Vital Signs Temp Pulse Resp BP Pulse Ox 02/10/18 12:00 97.8 F 70 18 142/86 H 96 02/10/18 09:45 72 02/10/18 08:00 97.5 F L 72 17 168/87 H 95 02/10/18 04:00 97.5 F L 66 20 127/71 99 Admit Weight 323 lb 12.8 oz Weight 281 lb 02/09/18 02/10/18 02/11/18 06:59 06:59 06:59 Intake Total 500 720 Output Total 2550 1200 Balance -2050 -480 - Physical Examination General/Neuro: alert & oriented x3 Neck: no JVD present Lungs: CTA Heart: other: (irregular) Extremities: other: (3+ pitting edema) - Telemetry Telemetry Rhythm: AFib - Labs Result Diagrams: 02/10/18 09:40 02/10/18 09:40 Troponin/CKMB Troponin I 0.206 ng/mL (< 0.028) H 01/29/18 02:51 - Assessment/Plan 1. CMY: uncertain etiology but suspect long-term diastloic CHF associated with Afib. and non-compliance. EF < 20%. Suggest Life-Vest and if no improvement with aggressive medical therapy and medication compliance then he will be a candidate for an implantable AICD. 2. Afib: chronic. Rate controlled. 3. Acute on Chronic Diastolic HF: Continue medical therapy. Titrate meds as tolerated. 4. Edema of lower extremities with cellulitis. Improving with antibiotics and diuretics. 5. Morbid obesity. 6. Depression/anxiety. 7. NADEEM: wears a CPAP mask. 8. DMII: per primary service. Reasonably well controlled. 9. HTN- stable Review of Systems - Review of Systems Constitutional: reports: no symptoms reported EENTM: reports: no symptoms reported Respiratory: reports: no symptoms reported Cardiac (ROS): reports: no symptoms reported ABD/GI: reports: no symptoms reported : reports: no symptoms reported Musculoskeletal: reports: no symptoms reported <Dallas Silva - Last Filed: 02/10/18 15:51> Cardiology Progress Note - Objective Vital Signs Temp Pulse Resp BP Pulse Ox 02/10/18 12:00 97.8 F 70 18 142/86 H 96 02/10/18 09:45 72 02/10/18 08:00 97.5 F L 72 17 168/87 H 95 02/10/18 04:00 97.5 F L 66 20 127/71 99 Admit Weight 323 lb 12.8 oz Weight 281 lb 02/09/18 02/10/18 02/11/18 06:59 06:59 06:59 Intake Total 500 720 Output Total 2550 1200 Balance -2050 -480 - Labs Result Diagrams: 02/10/18 09:40 02/10/18 09:40 Troponin/CKMB Troponin I 0.206 ng/mL (< 0.028) H 01/29/18 02:51 - Assessment/Plan Pt. seen and eval. by me. I agree with the A/P by the CARTOGRAPHIC AIDE. His edema has improved and is now a 1+. he says that he can not afford the Life-Vest. I will ask the family caseworker to assist him in getting Medicaide or some other form of financial assistance. he should be able to be d/c'd in the next 1-2 days.
[2018-02-10] MEDS: Gabapentin 100 MG CAP PO SCH ×2 (14:36→21:00)
--- NOTE | 2018-02-10 18:12 | PDOC.PN ---
- Subjective Encounter Start Date: 02/10/18 Encounter Start Time: 09:00 Patient seen and examined for CHF. No new complaints. No overnight events - Objective Resuscitation Status - Order Detail: 02/02/18 18:35 Resuscitation Status Routine Resuscitation Status: FULL: Full Resuscitation Discussed with: confirmed with patient MAR Reviewed: Yes Vital Signs & Weight: Vital Signs (12 hours) Temp Pulse Resp BP Pulse Ox 02/10/18 12:00 97.8 F 70 18 142/86 H 96 02/10/18 09:45 72 02/10/18 08:00 97.5 F L 72 17 168/87 H 95 Weight Admit Weight 323 lb 12.8 oz Weight 281 lb I&O: 02/09/18 02/10/18 02/11/18 06:59 06:59 06:59 Intake Total 500 720 640 Output Total 2550 1200 2400 Balance -2050 -480 -1760 Result Diagrams: 02/10/18 09:40 02/10/18 09:40 Additional Labs: Accuchecks 02/10/18 02/10/18 02/10/18 16:48 11:10 05:46 POC Glucose 157 H 178 H 139 H 02/09/18 02/09/18 20:37 18:03 POC Glucose 196 H 167 H EKG Reviewed by me: Yes (Tele Afib) Phys Exam - Physical Examination Constitutional: NAD Respiratory: no wheezing, no rhonchi few bibasilar rales Cardiovascular: RRR, no rub Gastrointestinal: soft, non-tender, positive bowel sounds Musculoskeletal: edema present Dx/Plan - Plan 1. Acute on chronic systolic/diastolic HF - diuresing well 2. Afib with RVR - rate controlled, on anticoag 3. HTN 4. NADEEM on CPAP 5. DM type 2 6. Hypokalemia/Hypomagnessemia 7. Depression 8. Morbid Obesity/ Elevated troponin due to demand ischemia/Thrombocytopenia/ CKD 3 PLAN: Cont IV diuresis per Cardiology Cont current meds as below BMP in AM Review of Systems - Review of Systems Respiratory: negative: Cough, Dry, Shortness of Breath, Hemoptysis, SOB with Excertion, Pleuritic Pain, Sputum, Wheezing Cardiovascular: negative: chest pain, palpitations, orthopnea, paroxysmal nocturnal dyspnea, edema, light headedness, other - Medications/Allergies Allergies/Adverse Reactions: Allergies Allergy/AdvReac Type Severity Reaction Status Date / Time No Known Allergies Allergy Verified 01/29/18 03:22 Medications: Current Medications Acetaminophen (Tylenol) 650 mg PO Q4H PRN PRN Reason: Headache/Fever/Mild Pain (1-3) Acetaminophen/Codeine Phosphate (Tylenol #3) 1 tab PO Q4H PRN PRN Reason: Mild Pain (1-3) Acetaminophen/Codeine Phosphate (Tylenol #3) 2 tab PO Q4H PRN PRN Reason: Moderate Pain (4-6) Hydrocodone Bitart/Acetaminophen ([place] 5/325) 1 tab PO Q4H PRN PRN Reason: Pain 4-6 Last Admin: 02/10/18 12:17 Dose: 1 tab Albuterol/Ipratropium (Duoneb) 3 ml NEB [id number] PRN PRN Reason: SOB &/or Wheezing Last Admin: 02/01/18 08:52 Dose: 3 ml Allopurinol (Zyloprim) 100 mg PO DAILY [facility] Last Admin: 02/10/18 09:45 Dose: 100 mg Alprazolam (Xanax) 0.25 mg PO DAILYPRN PRN PRN Reason: Anxiety Last Admin: 02/10/18 12:17 Dose: 0.25 mg Apixaban (Eliquis) 5 mg PO BID [facility] Last Admin: 02/10/18 09:44 Dose: 5 mg Artificial Tears (Tears Renewed 15ml Bottle) 2 drop EA EYE PRN PRN PRN Reason: Dry Eyes Aspirin (Aspirin Chewable) 81 mg PO DAILY [facility] Last Admin: 02/10/18 09:44 Dose: 81 mg Atorvastatin Calcium (Lipitor) 40 mg PO HS [facility] Last Admin: 02/09/18 20:09 Dose: 40 mg Bacitracin Zinc (Bacitracin) 1 pk TOP TID [facility] Last Admin: 02/10/18 14:36 Dose: Not Given Bisacodyl (Dulcolax) 10 mg PO DAILYPRN PRN PRN Reason: Constipation Bisacodyl (Dulcolax) 10 mg [place] DAILYPRN PRN PRN Reason: Constipation Calcium Carbonate (Tums) 1,000 mg PO Q4H PRN PRN Reason: Heartburn or Indigestion Carvedilol (Coreg) 3.125 mg PO BID-[facility] Last Admin: 02/10/18 17:51 Dose: 3.125 mg Dextrose/Water (Dextrose 50%) 25 gm SLOW IVP PRN PRN PRN Reason: Hypoglycemia Digoxin (Lanoxin) 0.25 mg PO QAM [facility] Last Admin: 02/10/18 09:45 Dose: 0.25 mg Diphenhydramine HCl (Benadryl) 25 mg PO Q6H PRN PRN Reason: Itching Last Admin: 02/09/18 20:09 Dose: 25 mg Famotidine (Pepcid) 20 mg PO BID [facility] Last Admin: 02/10/18 09:45 Dose: 20 mg Furosemide (Lasix) 40 mg SLOW IVP 0600,1400 [facility] Last Admin: 02/10/18 14:35 Dose: 40 mg Gabapentin (Neurontin) 100 mg PO HS [facility] Last Admin: 02/09/18 20:09 Dose: 100 mg Gabapentin (Neurontin) 100 mg PO 1500 [facility] Last Admin: 02/10/18 14:36 Dose: 100 mg Gabapentin (Neurontin) 200 mg PO DAILY [facility] Last Admin: 02/10/18 09:44 Dose: 200 mg Glipizide (Glucotrol) 10 mg PO DAILY [facility] Last Admin: 02/10/18 09:44 Dose: 10 mg Glucagon (Glucagon) 1 mg IM PRN PRN PRN Reason: Hypoglycemia Guaifenesin (Robitussin Sf) 200 mg PO Q4H PRN PRN Reason: Cough Hydralazine HCl (Apresoline) 10 mg SLOW IVP Q4H PRN PRN Reason: SBP > 180 and HR < 70 Dextrose/Water (D5w) 1,000 mls @ 0 mls/hr IV .Q0M PRN PRN Reason: Hypoglycemia Insulin Glargine 10 units/ (Miscellaneous Medication) 0.1 mls @ 0 mls/hr SC [facility] Last Admin: 02/09/18 21:54 Dose: 0.1 mls Insulin Glargine 20 units/ (Miscellaneous Medication) 0.2 mls @ 0 mls/hr SC QAM [facility] Last Admin: 02/10/18 09:45 Dose: 0.2 mls Sodium Chloride (Normal Saline 0.9%) 200 mls @ 0 mls/hr IV ONE PRN PRN Reason: Bolus PRN SBP < 90 mm Hg Stop: 02/12/18 09:25 Insulin Human Lispro (Humalog) 0 units SC .MODERATE SLIDING SC PRN PRN Reason: Moderate Correctional Scale Last Admin: 02/08/18 18:19 Dose: 2 unit Insulin Human Lispro (Humalog) 0 units SC .BEDTIME SLIDING SC PRN PRN Reason: Bedtime Correctional Scale Last Admin: 02/08/18 21:14 Dose: 3 unit Levothyroxine Sodium (Synthroid) 25 mcg PO 0600 [facility] Last Admin: 02/10/18 05:18 Dose: 25 mcg Lisinopril (Zestril) 5 mg PO DAILY [facility] Last Admin: 02/10/18 09:45 Dose: 5 mg Loperamide HCl (Imodium) 2 mg PO PRN PRN PRN Reason: Diarrhea/Loose Stools Magnesium Chloride (Slow-Mag) 64 mg PO BID [facility] Last Admin: 02/10/18 09:51 Dose: 64 mg Metolazone (Zaroxolyn) 5 mg PO 0830 [facility] Last Admin: 02/10/18 09:44 Dose: 5 mg Mineral Oil/White Petrolatum (Eucerin Cream) 0 gm TOP BIDPRN PRN PRN Reason: Dry Skin Last Admin: 02/08/18 15:09 Dose: 1 applic Nitroglycerin (Nitrostat) 0.4 mg SL Q5MIN PRN PRN Reason: Chest Pain Nitroglycerin (Nitrostat) 0.4 mg SL Q5MIN PRN PRN Reason: Chest Pain Ondansetron HCl (Zofran Odt) 4 mg PO Q6H PRN PRN Reason: Nausea/Vomiting Ondansetron HCl (Zofran) 4 mg IVP Q6H PRN PRN Reason: Nausea/Vomiting Potassium Chloride (K-Dur) 40 meq PO QID-WM [facility] Last Admin: 02/10/18 17:51 Dose: 40 meq Senna/Docusate Sodium (Senokot S) 2 tab PO BID PRN PRN Reason: Constipation Sodium Chloride ([place] Nasal [place] 0.65%) 0 ml EA NARE QIDPRN PRN PRN Reason: Nasal Congestion Sodium Chloride (Flush - Normal Saline) 10 ml IVF Q12HR [facility] Last Admin: 02/10/18 09:46 Dose: 10 ml Sodium Chloride (Flush - Normal Saline) 10 ml IVF PRN PRN PRN Reason: Saline Flush Last Admin: 02/04/18 14:05 Dose: 10 ml Throat Lozenges (Cepastat Lozenges) 1 reggie PO Q2H PRN PRN Reason: Sore Throat Tramadol HCl (Ultram) 50 mg PO Q6H PRN PRN Reason: Moderate Pain (4-6) Zolpidem Tartrate (Ambien) 5 mg PO HSPRN PRN PRN Reason: Insomnia Last Admin: 02/04/18 20:18 Dose: 5 mg
[2018-02-10] MEDS: Atorvastatin Calcium 40 MG TAB PO SCH (21:01)
[2018-02-10] MEDS: Insulin Glargine 10 UNITS in Pre-Filled Syringe 1 EACH SC SCH (21:42)
[2018-02-11] MEDS: Levothyroxine Sodium 25 MCG TAB PO SCH (05:33)
[2018-02-11] MEDS: Furosemide 40 MG/4 ML VIAL SLOW IVP SCH (05:33)
[2018-02-11 06:34] LABS: Anion Gap 15 mmol/L (10-20); BUN (Urea Nitrogen) 26 mg/dL (8.4-25.7); Calc. Creatinine Clearance 111 mL/min (70-130); Calcium 9.8 mg/dL (7.8-10.44); Carbon Dioxide 31 mmol/L (23-31); Chloride 97 mmol/L (98-107); Estimated GFR-MDRD 63; Glucose 138 mg/dL (80-115); Magnesium 1.9 mg/dL (1.6-2.6); Potassium 3.9 mmol/L (3.5-5.1); Sodium 139 mmol/L (136-145)
[2018-02-11] MEDS: Allopurinol 100 MG TAB PO SCH (08:46)
[2018-02-11] MEDS: Digoxin 0.25 MG TAB PO SCH (08:46)
[2018-02-11] MEDS: glipiZIDE 10 MG TAB PO SCH (08:46)
[2018-02-11] MEDS: Bacitracin Zinc 1 Packet TOP SCH ×3 (08:46→20:34)
[2018-02-11] MEDS: Carvedilol 3.125 MG TAB PO SCH ×2 (08:47→18:22)
[2018-02-11] MEDS: Potassium Chloride 20 MEQ TAB PO SCH ×3 (08:47→18:22)
[2018-02-11] MEDS: Gabapentin 100 MG CAP PO SCH ×3 (08:47→20:35)
[2018-02-11] MEDS: Metolazone 5 MG TAB PO SCH (08:47)
[2018-02-11] MEDS: Lisinopril 5 MG TAB PO SCH (08:47)
[2018-02-11] MEDS: Apixaban 5 MG TAB PO SCH ×2 (08:47→20:35)
[2018-02-11] MEDS: Famotidine 20 MG TAB PO SCH ×2 (08:48→20:35)
[2018-02-11] MEDS: HYDROcodone/Acetaminophen 5/325 mg Tablet PO PRN ×3 (08:52→20:36)
[2018-02-11] MEDS: Insulin Glargine 20 UNITS in Pre-Filled Syringe 1 EACH SC SCH (08:52)
[2018-02-11] MEDS: Magnesium Chloride 64 MG TAB PO SCH ×2 (08:52→20:39)
--- NOTE | 2018-02-11 10:01 | PDOC.CTH ---
<Catalina Glaser - Last Filed: 02/11/18 09:57> Cardiology Progress Note - Subjective The pt seen and examined. No overnight events. No cardiac complaints. - Objective Vital Signs Temp Pulse Resp BP Pulse Ox 02/11/18 08:47 72 02/11/18 08:46 72 02/11/18 04:08 97.8 F 72 18 130/81 92 L Admit Weight 323 lb 12.8 oz Weight 272 lb 4.8 oz 02/10/18 02/11/18 02/12/18 06:59 06:59 06:59 Intake Total 720 1260 Output Total 1200 4990 Balance -480 -9566 - Physical Examination General/Neuro: alert & oriented x3 Neck: no JVD present Lungs: other: (diminished at bases) Heart: other: (irregular) Abdomen: soft Extremities: other: (2+ pitting BLE edema) - Telemetry Telemetry Rhythm: AFib 70-80s - Labs Result Diagrams: 02/10/18 09:40 02/11/18 05:35 Troponin/CKMB Troponin I 0.206 ng/mL (< 0.028) H 01/29/18 02:51 - Assessment/Plan 1. CMY: uncertain etiology but suspect supervisor intermediates diastolic CHF associated with Afib. and non-compliance. EF < 20%. Suggest Life-Vest and if no improvement with aggressive medical therapy and medication compliance then he will be a candidate for an implantable AICD. 2. Afib: chronic. Rate controlled with Coreg 3.125mg BID, Dig 0.25mg qd, and Eliquis 5mg BID. 3. Acute on Chronic Diastolic HF: diuresing well with Lasix and Metolazone. Lasix will be changed to 80mg PO BID from this PM. On Coreg 3.25mg BID and Lisinopril 5mg qd. 4. Edema of lower extremities with cellulites. Improving with antibiotics and diuretics. ANDRES wrap to BLE daytimes. 5. Morbid obesity. 6. Depression/anxiety. 7. NADEEM: wears a CPAP mask. 8. DMII: per primary service. Reasonably well controlled. 9. HTN- stable MAR reviewed * he should be able to be d/c'd in the next 1-2 days. Review of Systems - Review of Systems Constitutional: reports: no symptoms reported EENTM: reports: no symptoms reported Respiratory: reports: no symptoms reported Cardiac (ROS): reports: no symptoms reported ABD/GI: reports: no symptoms reported : reports: no symptoms reported Musculoskeletal: reports: other (chronic knee pain) <Dallas Silva - Last Filed: 02/11/18 13:12> Cardiology Progress Note - Objective Vital Signs Temp Pulse Resp BP BP Pulse Ox 02/11/18 08:47 72 02/11/18 08:46 72 02/11/18 08:00 97.7 F 68 18 135/64 93 L 02/11/18 04:08 97.8 F 72 18 130/81 92 L Admit Weight 323 lb 12.8 oz Weight 272 lb 4.8 oz 02/10/18 02/11/18 02/12/18 06:59 06:59 06:59 Intake Total 720 1260 Output Total 1200 4990 Balance -338 -8840 - Labs Result Diagrams: 02/10/18 09:40 02/11/18 05:35 Troponin/CKMB Troponin I 0.206 ng/mL (< 0.028) H 01/29/18 02:51 - Assessment/Plan Pt. seen and eval. by me. I agree with the A/P by the SORTER LUMBER STRAIGHTENER. His edema has improved and is almost gone. Only the left lower leg has minimal edema and some erythema.He says that he can not afford the Life-Vest. I will asked the mental health case manager to assist him in getting Medicaide or some other form of financial assistance.He says that he wants to continue to work and is worried about the gap between the time he can not work and when he will get medicaide. He should be able to be d/c'd in the next 1-2 days. If he can not afford his medications then he will certainly return to the ER with CHF exacerbation. Chest clear. Irreg/irreg. Rate controlled.
[2018-02-11] MEDS ORDERED: Furosemide 80 MG TAB PO SCH (14:00)
--- NOTE | 2018-02-11 14:26 | PDOC.PN ---
- Subjective Encounter Start Date: 02/11/18 Encounter Start Time: 09:00 Patient seen and examined for CHF. SOB improving. No new complaints. No overnight events - Objective Resuscitation Status - Order Detail: 02/02/18 18:35 Resuscitation Status Routine Resuscitation Status: FULL: Full Resuscitation Discussed with: confirmed with patient MAR Reviewed: Yes Vital Signs & Weight: Vital Signs (12 hours) Temp Pulse Resp BP BP Pulse Ox 02/11/18 08:47 72 02/11/18 08:46 72 02/11/18 08:00 97.7 F 68 18 135/64 93 L 02/11/18 04:08 97.8 F 72 18 130/81 92 L Weight Admit Weight 323 lb 12.8 oz Weight 272 lb 4.8 oz I&O: 02/10/18 02/11/18 02/12/18 06:59 06:59 06:59 Intake Total 720 1260 Output Total 1200 4990 Balance -480 -4752 Result Diagrams: 02/10/18 09:40 02/11/18 05:35 Additional Labs: Accuchecks 02/11/18 02/11/18 02/10/18 10:53 05:37 20:17 POC Glucose 153 H 135 H 222 H 02/10/18 16:48 POC Glucose 157 H EKG Reviewed by me: Yes (tele Afib) Phys Exam - Physical Examination Constitutional: NAD Respiratory: no wheezing, no rhonchi Cardiovascular: no rub, irregular Gastrointestinal: soft, non-tender, positive bowel sounds Musculoskeletal: edema present Neurological: non-focal, moves all 4 limbs Dx/Plan - Plan 1. Acute on chronic systolic/diastolic HF 2. Afib with RVR - rate controlled, on anticoag 3. HTN 4. NADEEM on CPAP 5. DM type 2 6. Hypokalemia/Hypomagnessemia 7. Depression 8. Morbid Obesity/ Elevated troponin due to demand ischemia/Thrombocytopenia/ CKD 3 PLAN: Lasix chaged to PO Change Pot chloride to BID AM labs Cont other meds as below Review of Systems - Review of Systems Respiratory: negative: Cough, Dry, Shortness of Breath, Hemoptysis, SOB with Excertion, Pleuritic Pain, Sputum, Wheezing Cardiovascular: negative: chest pain, palpitations, orthopnea, paroxysmal nocturnal dyspnea, edema, light headedness, other Gastrointestinal: negative: Nausea, Vomiting, Abdominal Pain, Diarrhea, Constipation, Melena, Hematochezia, Other - Medications/Allergies Allergies/Adverse Reactions: Allergies Allergy/AdvReac Type Severity Reaction Status Date / Time No Known Allergies Allergy Verified 01/29/18 03:22 Medications: Current Medications Acetaminophen (Tylenol) 650 mg PO Q4H PRN PRN Reason: Headache/Fever/Mild Pain (1-3) Acetaminophen/Codeine Phosphate (Tylenol #3) 1 tab PO Q4H PRN PRN Reason: Mild Pain (1-3) Acetaminophen/Codeine Phosphate (Tylenol #3) 2 tab PO Q4H PRN PRN Reason: Moderate Pain (4-6) Hydrocodone Bitart/Acetaminophen ([place] 5/325) 1 tab PO Q4H PRN PRN Reason: Pain 4-6 Last Admin: 02/11/18 08:52 Dose: 1 tab Albuterol/Ipratropium (Duoneb) 3 ml NEB [id number] PRN PRN Reason: SOB &/or Wheezing Last Admin: 02/01/18 08:52 Dose: 3 ml Allopurinol (Zyloprim) 100 mg PO DAILY [facility] Last Admin: 02/11/18 08:46 Dose: 100 mg Alprazolam (Xanax) 0.25 mg PO DAILYPRN PRN PRN Reason: Anxiety Last Admin: 02/10/18 12:17 Dose: 0.25 mg Apixaban (Eliquis) 5 mg PO BID [facility] Last Admin: 02/11/18 08:47 Dose: 5 mg Artificial Tears (Tears Renewed 15ml Bottle) 2 drop EA EYE PRN PRN PRN Reason: Dry Eyes Aspirin (Aspirin Chewable) 81 mg PO DAILY [facility] Last Admin: 02/11/18 08:46 Dose: 81 mg Atorvastatin Calcium (Lipitor) 40 mg PO HS [facility] Last Admin: 02/10/18 21:01 Dose: 40 mg Bacitracin Zinc (Bacitracin) 1 pk TOP TID [facility] Last Admin: 02/11/18 08:46 Dose: 1 pk Bisacodyl (Dulcolax) 10 mg PO DAILYPRN PRN PRN Reason: Constipation Bisacodyl (Dulcolax) 10 mg [place] DAILYPRN PRN PRN Reason: Constipation Calcium Carbonate (Tums) 1,000 mg PO Q4H PRN PRN Reason: Heartburn or Indigestion Carvedilol (Coreg) 3.125 mg PO BID-[facility] Last Admin: 02/11/18 08:47 Dose: 3.125 mg Dextrose/Water (Dextrose 50%) 25 gm SLOW IVP PRN PRN PRN Reason: Hypoglycemia Digoxin (Lanoxin) 0.25 mg PO QAM [facility] Last Admin: 02/11/18 08:46 Dose: 0.25 mg Diphenhydramine HCl (Benadryl) 25 mg PO Q6H PRN PRN Reason: Itching Last Admin: 02/09/18 20:09 Dose: 25 mg Famotidine (Pepcid) 20 mg PO BID [facility] Last Admin: 02/11/18 08:48 Dose: 20 mg Furosemide (Lasix) 40 mg PO 0900,1400 [facility] Gabapentin (Neurontin) 200 mg PO TID [facility] Last Admin: 02/11/18 08:47 Dose: 200 mg Glipizide (Glucotrol) 10 mg PO DAILY [facility] Last Admin: 02/11/18 08:46 Dose: 10 mg Glucagon (Glucagon) 1 mg IM PRN PRN PRN Reason: Hypoglycemia Guaifenesin (Robitussin Sf) 200 mg PO Q4H PRN PRN Reason: Cough Hydralazine HCl (Apresoline) 10 mg SLOW IVP Q4H PRN PRN Reason: SBP > 180 and HR < 70 Dextrose/Water (D5w) 1,000 mls @ 0 mls/hr IV .Q0M PRN PRN Reason: Hypoglycemia Insulin Glargine 10 units/ (Miscellaneous Medication) 0.1 mls @ 0 mls/hr SC [facility] Last Admin: 02/10/18 21:42 Dose: 0.1 mls Insulin Glargine 20 units/ (Miscellaneous Medication) 0.2 mls @ 0 mls/hr SC [facility] [place] Last Admin: 02/11/18 08:52 Dose: 0.2 mls Sodium Chloride (Normal Saline 0.9%) 200 mls @ 0 mls/hr IV ONE PRN PRN Reason: Bolus PRN SBP < 90 mm Hg Stop: 02/12/18 09:25 Insulin Human Lispro (Humalog) 0 units [place] .MODERATE SLIDING SC PRN PRN Reason: Moderate Correctional Scale Last Admin: 02/08/18 18:19 Dose: 2 unit Insulin Human Lispro (Humalog) 0 units [place] .BEDTIME SLIDING SC PRN PRN Reason: Bedtime Correctional Scale Last Admin: 02/08/18 21:14 Dose: 3 unit Levothyroxine Sodium (Synthroid) 25 mcg PO 0600 [facility] Last Admin: 02/11/18 05:33 Dose: 25 mcg Lisinopril (Zestril) 5 mg PO DAILY [facility] Last Admin: 02/11/18 08:47 Dose: 5 mg Loperamide HCl (Imodium) 2 mg PO PRN PRN PRN Reason: Diarrhea/Loose Stools Magnesium Chloride (Slow-Mag) 64 mg PO BID [facility] Last Admin: 02/11/18 08:52 Dose: 64 mg Metolazone (Zaroxolyn) 5 mg PO 0830 [facility] Last Admin: 02/11/18 08:47 Dose: 5 mg Mineral Oil/White Petrolatum (Eucerin Cream) 0 gm TOP BIDPRN PRN PRN Reason: Dry Skin Last Admin: 02/08/18 15:09 Dose: 1 applic Nitroglycerin (Nitrostat) 0.4 mg SL Q5MIN PRN PRN Reason: Chest Pain Ondansetron HCl (Zofran Odt) 4 mg PO Q6H PRN PRN Reason: Nausea/Vomiting Ondansetron HCl (Zofran) 4 mg IVP Q6H PRN PRN Reason: Nausea/Vomiting Potassium Chloride (K-Dur) 40 meq PO BID-[facility] Senna/Docusate Sodium (Senokot S) 2 tab PO BID PRN PRN Reason: Constipation Sodium Chloride ([place] Nasal [place] 0.65%) 0 ml EA NARE QIDPRN PRN PRN Reason: Nasal Congestion Sodium Chloride (Flush - Normal Saline) 10 ml IVF Q12HR [facility] Last Admin: 02/11/18 08:48 Dose: 10 ml Sodium Chloride (Flush - Normal Saline) 10 ml IVF PRN PRN PRN Reason: Saline Flush Last Admin: 02/11/18 05:33 Dose: 10 ml Throat Lozenges (Cepastat Lozenges) 1 reggie PO Q2H PRN PRN Reason: Sore Throat Tramadol HCl (Ultram) 50 mg PO Q6H PRN PRN Reason: Moderate Pain (4-6) Zolpidem Tartrate (Ambien) 5 mg PO HSPRN PRN PRN Reason: Insomnia Last Admin: 02/04/18 20:18 Dose: 5 mg
[2018-02-11] MEDS: Furosemide 40 MG TAB PO SCH (15:37)
[2018-02-11] MEDS: HumaLOG 300 UNITS/3 ML VIAL SC PRN (18:23)
[2018-02-11] MEDS: Atorvastatin Calcium 40 MG TAB PO SCH (20:35)
[2018-02-11] MEDS: Insulin Glargine 10 UNITS in Pre-Filled Syringe 1 EACH SC SCH (20:37)
[2018-02-12] MEDS: Levothyroxine Sodium 25 MCG TAB PO SCH (06:00)
[2018-02-12] MEDS: Carvedilol 3.125 MG TAB PO SCH ×2 (07:56→17:05)
[2018-02-12] MEDS: Potassium Chloride 20 MEQ TAB PO SCH ×2 (07:56→17:05)
[2018-02-12] MEDS: Apixaban 5 MG TAB PO SCH ×2 (07:57→21:31)
[2018-02-12] MEDS: Metolazone 5 MG TAB PO SCH (07:57)
[2018-02-12] MEDS: Digoxin 0.25 MG TAB PO SCH (07:57)
[2018-02-12] MEDS: Allopurinol 100 MG TAB PO SCH (07:57)
[2018-02-12] MEDS: Furosemide 40 MG TAB PO SCH ×2 (07:57→14:22)
[2018-02-12] MEDS: Bacitracin Zinc 1 Packet TOP SCH ×3 (07:57→21:33)
[2018-02-12] MEDS: Famotidine 20 MG TAB PO SCH ×2 (07:57→21:32)
[2018-02-12] MEDS: glipiZIDE 10 MG TAB PO SCH (07:58)
[2018-02-12] MEDS: Lisinopril 5 MG TAB PO SCH (07:58)
[2018-02-12] MEDS: Gabapentin 100 MG CAP PO SCH ×2 (07:58→21:31)
[2018-02-12] MEDS: Magnesium Chloride 64 MG TAB PO SCH ×2 (07:58→21:33)
[2018-02-12] MEDS: HYDROcodone/Acetaminophen 5/325 mg Tablet PO PRN ×3 (07:59→21:31)
[2018-02-12] MEDS: Insulin Glargine 20 UNITS in Pre-Filled Syringe 1 EACH SC SCH (09:06)
--- NOTE | 2018-02-12 11:48 | PDOC.CTH ---
<Catalina Glaser - Last Filed: 02/12/18 15:29> Cardiology Progress Note - Subjective The pt seen and examined. No overnight events. No cardiac complaints. - Objective Vital Signs Temp Pulse Resp BP BP Pulse Ox 02/12/18 11:27 97.6 F 66 18 152/76 H 97 02/12/18 07:52 96 02/12/18 07:50 97.6 F 69 18 137/81 96 02/12/18 04:00 98.1 F 64 20 123/69 98 Admit Weight 323 lb 12.8 oz Weight 266 lb 4.8 oz 02/11/18 02/12/18 02/13/18 06:59 06:59 06:59 Intake Total 1260 1210 Output Total 4990 3350 Balance -3730 -2140 - Physical Examination General/Neuro: alert & oriented x3 Neck: no JVD present Lungs: CTA Heart: other: (irregular) Abdomen: soft Extremities: other: (2+ pitting BLE edema;) - Telemetry Telemetry Rhythm: [id number] - Labs Result Diagrams: 02/10/18 09:40 02/11/18 05:35 Troponin/CKMB Troponin I 0.206 ng/mL (< 0.028) H 01/29/18 02:51 - Assessment/Plan 1. 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 and non-compliance. EF < 20%. Suggest Life-Vest, but the pt refused. Cont. aggressive medical therapy and medication compliance then he will be a candidate for an implantable AICD within 90 days. 2. Afib: chronic. Rate controlled with Coreg 3.125mg BID, Dig 0.25mg qd, and Eliquis 5mg BID. 3. Acute on Chronic Diastolic HF: diuresing well with Lasix and Metolazone. Lasix will be changed to 40mg PO BID, Coreg 3.25mg BID and Lisinopril 5mg qd. 4. Edema of lower extremities with cellulites. Improving with antibiotics and diuretics. ANDRES wrap to BLE daytimes. 5. Morbid obesity. 6. Depression/anxiety. 7. NADEEM: wears a CPAP mask. 8. DMII: per primary service. Reasonably well controlled. 9. HTN- stable 10. 3 episodes of NSVTs - the pt was asymptomatic during the episodes per the pt. Mg 2gm IV will be given today for Mg level 1.9. Start Amiodarone 400mg TID for 1wk from today at 1530, 400mg BID for 1wk, 200mg BID for 1wk, 200mg BID for 1wk, and 200mg qd. MAR reviewed * He cont. refusing to apply Medicaid and refused to have LifeVest today. * he should be able to be d/c'd in the next 1-2 days. * Coupon for Eliquis will give to the pt at discharge. Review of Systems - Review of Systems Constitutional: reports: no symptoms reported EENTM: reports: no symptoms reported Respiratory: reports: no symptoms reported Cardiac (ROS): reports: no symptoms reported ABD/GI: reports: no symptoms reported : reports: no symptoms reported Musculoskeletal: reports: no symptoms reported Skin: reports: no symptoms reported <Dallas Silva - Last Filed: 02/12/18 18:05> Cardiology Progress Note - Objective Vital Signs Temp Pulse Resp BP Pulse Ox 02/12/18 17:01 97.5 F L 64 18 139/82 94 L 02/12/18 11:27 97.6 F 66 18 152/76 H 97 02/12/18 07:52 96 02/12/18 07:50 97.6 F 69 18 137/81 96 Admit Weight 323 lb 12.8 oz Weight 266 lb 4.8 oz 02/11/18 02/12/18 02/13/18 06:59 06:59 06:59 Intake Total 1260 1210 Output Total 4990 3350 Balance -3730 -2140 - Labs Result Diagrams: 02/10/18 09:40 02/11/18 05:35 Troponin/CKMB Troponin I 0.206 ng/mL (< 0.028) H 01/29/18 02:51 - Assessment/Plan Pt. seen and eval. by me. I agree with the A/P by the WOOD POLISHER. We have discussed the pt as well as the A/PO. Chest clear. irreg/irreg.
[2018-02-12] MEDS ORDERED: Magnesium 2 GM/50 ML 2 GM in Premix Bag 1 BAG IVPB SCH (12:00)
[2018-02-12] MEDS: HumaLOG 300 UNITS/3 ML VIAL SC PRN ×2 (12:39→17:13)
--- NOTE | 2018-02-12 12:43 | PDOC.PN ---
- Subjective Encounter Start Date: 02/12/18 Encounter Start Time: 09:30 Patient seen and examined for CHF. Feels better. No fever/chills/CP. No other complaints. No overnight events - Objective Resuscitation Status - Order Detail: 02/02/18 18:35 Resuscitation Status Routine Resuscitation Status: FULL: Full Resuscitation Discussed with: confirmed with patient MAR Reviewed: Yes Vital Signs & Weight: Vital Signs (12 hours) Temp Pulse Resp BP BP Pulse Ox 02/12/18 11:27 97.6 F 66 18 152/76 H 97 02/12/18 07:52 96 02/12/18 07:50 97.6 F 69 18 137/81 96 02/12/18 04:00 98.1 F 64 20 123/69 98 Weight Admit Weight 323 lb 12.8 oz Weight 266 lb 4.8 oz I&O: 02/11/18 02/12/18 02/13/18 06:59 06:59 06:59 Intake Total 1260 1210 Output Total 4990 3350 Balance -3730 -2140 Result Diagrams: 02/10/18 09:40 02/11/18 05:35 Additional Labs: Accuchecks 02/12/18 02/12/18 02/11/18 11:23 05:57 20:28 POC Glucose 171 H 150 H 155 H 02/11/18 16:32 POC Glucose 192 H EKG Reviewed by me: Yes (Tele SR, Vtach earlier) Phys Exam - Physical Examination Constitutional: NAD Respiratory: no wheezing, no rhonchi few bibasilar rales Cardiovascular: no rub, irregular Gastrointestinal: soft, non-tender, positive bowel sounds Musculoskeletal: edema present Neurological: moves all 4 limbs Dx/Plan - Plan DVT proph w/SCDs 1. Acute on chronic systolic/diastolic HF - improving, on PO Lasix 2. Afib with RVR - rate controlled, on anticoag 3. HTN 4. NADEEM on CPAP 5. DM type 2 6. Hypokalemia/Hypomagnessemia 7. NSVT 8. Morbid Obesity/Depression / Elevated troponin due to demand ischemia/ Thrombocytopenia/ CKD 3 PLAN: Cont PO diuresis with Metolazone Most of his medications including ASA have been arranged Will give Elisteveis coupon at dc Cont other meds as below BMP in AM - Refused lab this AM DC in 1-2 days per Cardiology Review of Systems - Review of Systems Cardiovascular: negative: chest pain, palpitations, orthopnea, paroxysmal nocturnal dyspnea, edema, light headedness, other Gastrointestinal: negative: Nausea, Vomiting, Abdominal Pain, Diarrhea, Constipation, Melena, Hematochezia, Other - Medications/Allergies Allergies/Adverse Reactions: Allergies Allergy/AdvReac Type Severity Reaction Status Date / Time No Known Allergies Allergy Verified 01/29/18 03:22 Medications: Current Medications Acetaminophen (Tylenol) 650 mg PO Q4H PRN PRN Reason: Headache/Fever/Mild Pain (1-3) Acetaminophen/Codeine Phosphate (Tylenol #3) 1 tab PO Q4H PRN PRN Reason: Mild Pain (1-3) Acetaminophen/Codeine Phosphate (Tylenol #3) 2 tab PO Q4H PRN PRN Reason: Moderate Pain (4-6) Hydrocodone Bitart/Acetaminophen ([place] 5/325) 1 tab PO Q4H PRN PRN Reason: Pain 4-6 Last Admin: 02/12/18 07:59 Dose: 1 tab Albuterol/Ipratropium (Duoneb) 3 ml NEB [id number] PRN PRN Reason: SOB &/or Wheezing Last Admin: 02/01/18 08:52 Dose: 3 ml Allopurinol (Zyloprim) 100 mg PO DAILY [facility] Last Admin: 02/12/18 07:57 Dose: 100 mg Alprazolam (Xanax) 0.25 mg PO DAILYPRN PRN PRN Reason: Anxiety Last Admin: 02/10/18 12:17 Dose: 0.25 mg Apixaban (Eliquis) 5 mg PO BID [facility] Last Admin: 02/12/18 07:57 Dose: 5 mg Artificial Tears (Tears Renewed 15ml Bottle) 2 drop EA EYE PRN PRN PRN Reason: Dry Eyes Aspirin (Aspirin Chewable) 81 mg PO DAILY [facility] Last Admin: 02/12/18 07:57 Dose: 81 mg Atorvastatin Calcium (Lipitor) 40 mg PO HS [facility] Last Admin: 02/11/18 20:35 Dose: 40 mg Bacitracin Zinc (Bacitracin) 1 pk TOP TID [facility] Last Admin: 02/12/18 07:57 Dose: 1 pk Bisacodyl (Dulcolax) 10 mg PO DAILYPRN PRN PRN Reason: Constipation Bisacodyl (Dulcolax) 10 mg [place] DAILYPRN PRN PRN Reason: Constipation Calcium Carbonate (Tums) 1,000 mg PO Q4H PRN PRN Reason: Heartburn or Indigestion Carvedilol (Coreg) 3.125 mg PO BID-[facility] Last Admin: 02/12/18 07:56 Dose: 3.125 mg Dextrose/Water (Dextrose 50%) 25 gm SLOW IVP PRN PRN PRN Reason: Hypoglycemia Digoxin (Lanoxin) 0.25 mg PO QAM [facility] Last Admin: 02/12/18 07:57 Dose: 0.25 mg Diphenhydramine HCl (Benadryl) 25 mg PO Q6H PRN PRN Reason: Itching Last Admin: 02/09/18 20:09 Dose: 25 mg Famotidine (Pepcid) 20 mg PO BID [facility] Last Admin: 02/12/18 07:57 Dose: 20 mg Furosemide (Lasix) 40 mg PO 0900,1400 [facility] Last Admin: 02/12/18 07:57 Dose: 40 mg Gabapentin (Neurontin) 200 mg PO TID [facility] Last Admin: 02/12/18 07:58 Dose: 200 mg Glipizide (Glucotrol) 10 mg PO DAILY [facility] Last Admin: 02/12/18 07:58 Dose: 10 mg Glucagon (Glucagon) 1 mg IM PRN PRN PRN Reason: Hypoglycemia Guaifenesin (Robitussin Sf) 200 mg PO Q4H PRN PRN Reason: Cough Hydralazine HCl (Apresoline) 10 mg SLOW IVP Q4H PRN PRN Reason: SBP > 180 and HR < 70 Dextrose/Water (D5w) 1,000 mls @ 0 mls/hr IV .Q0M PRN PRN Reason: Hypoglycemia Insulin Glargine 10 units/ (Miscellaneous Medication) 0.1 mls @ 0 mls/hr SC HS [facility] Last Admin: 02/11/18 20:37 Dose: 0.1 mls Insulin Glargine 20 units/ (Miscellaneous Medication) 0.2 mls @ 0 mls/hr SC QAM [facility] Last Admin: 02/12/18 09:06 Dose: 0.2 mls Magnesium Sulfate 2 gm/ Device 50 mls @ 50 mls/hr IVPB NOW [facility] Stop: 02/12/18 14:00 Insulin Human Lispro (Humalog) 0 units [place] .MODERATE SLIDING SC PRN PRN Reason: Moderate Correctional Scale Last Admin: 02/11/18 18:23 Dose: 2 unit Insulin Human Lispro (Humalog) 0 units SC .BEDTIME SLIDING SC PRN PRN Reason: Bedtime Correctional Scale Last Admin: 02/08/18 21:14 Dose: 3 unit Levothyroxine Sodium (Synthroid) 25 mcg PO 0600 [facility] Last Admin: 02/12/18 06:00 Dose: 25 mcg Lisinopril (Zestril) 5 mg PO DAILY [facility] Last Admin: 02/12/18 07:58 Dose: 5 mg Loperamide HCl (Imodium) 2 mg PO PRN PRN PRN Reason: Diarrhea/Loose Stools Magnesium Chloride (Slow-Mag) 64 mg PO BID [facility] Last Admin: 02/12/18 07:58 Dose: 64 mg Metolazone (Zaroxolyn) 5 mg PO 0830 [facility] Last Admin: 02/12/18 07:57 Dose: 5 mg Mineral Oil/White Petrolatum (Eucerin Cream) 0 gm TOP BIDPRN PRN PRN Reason: Dry Skin Last Admin: 02/08/18 15:09 Dose: 1 applic Nitroglycerin (Nitrostat) 0.4 mg SL Q5MIN PRN PRN Reason: Chest Pain Ondansetron HCl (Zofran Odt) 4 mg PO Q6H PRN PRN Reason: Nausea/Vomiting Ondansetron HCl (Zofran) 4 mg IVP Q6H PRN PRN Reason: Nausea/Vomiting Potassium Chloride (K-Dur) 40 meq PO BID-[facility] Last Admin: 02/12/18 07:56 Dose: 40 meq Senna/Docusate Sodium (Senokot S) 2 tab PO BID PRN PRN Reason: Constipation Sodium Chloride ([place] Nasal [place] 0.65%) 0 ml EA NARE QIDPRN PRN PRN Reason: Nasal Congestion Sodium Chloride (Flush - Normal Saline) 10 ml IVF Q12HR [facility] Last Admin: 02/12/18 07:59 Dose: 10 ml Sodium Chloride (Flush - Normal Saline) 10 ml IVF PRN PRN PRN Reason: Saline Flush Last Admin: 02/11/18 05:33 Dose: 10 ml Throat Lozenges (Cepastat Lozenges) 1 reggie PO Q2H PRN PRN Reason: Sore Throat Tramadol HCl (Ultram) 50 mg PO Q6H PRN PRN Reason: Moderate Pain (4-6) Zolpidem Tartrate (Ambien) 5 mg PO HSPRN PRN PRN Reason: Insomnia Last Admin: 02/04/18 20:18 Dose: 5 mg
[2018-02-12] MEDS: Amiodarone 200 MG TAB PO SCH (21:31)
[2018-02-12] MEDS: Atorvastatin Calcium 40 MG TAB PO SCH (21:32)
[2018-02-12] MEDS: Insulin Glargine 10 UNITS in Pre-Filled Syringe 1 EACH SC SCH (21:33)
[2018-02-13] MEDS: HYDROcodone/Acetaminophen 5/325 mg Tablet PO PRN ×3 (03:46→21:28)
[2018-02-13] MEDS: Levothyroxine Sodium 25 MCG TAB PO SCH (03:51)
[2018-02-13] MEDS: ALPRAZolam 0.25 MG TAB PO PRN (04:04)
[2018-02-13] MEDS: Carvedilol 3.125 MG TAB PO SCH ×2 (08:28→17:45)
[2018-02-13] MEDS: Amiodarone 200 MG TAB PO SCH ×3 (08:29→21:27)
[2018-02-13] MEDS: Furosemide 40 MG TAB PO SCH ×2 (08:29→15:11)
[2018-02-13] MEDS: Lisinopril 5 MG TAB PO SCH (08:29)
[2018-02-13] MEDS: Famotidine 20 MG TAB PO SCH ×2 (08:29→21:28)
[2018-02-13] MEDS: Potassium Chloride 20 MEQ TAB PO SCH ×2 (08:29→17:45)
[2018-02-13] MEDS: Allopurinol 100 MG TAB PO SCH (08:29)
[2018-02-13] MEDS: Metolazone 5 MG TAB PO SCH (08:30)
[2018-02-13] MEDS: Apixaban 5 MG TAB PO SCH ×2 (08:30→21:27)
[2018-02-13] MEDS: Digoxin 0.25 MG TAB PO SCH (08:30)
[2018-02-13] MEDS: Bacitracin Zinc 1 Packet TOP SCH ×3 (08:30→21:27)
[2018-02-13] MEDS: Gabapentin 100 MG CAP PO SCH ×3 (08:30→21:28)
[2018-02-13] MEDS: Insulin Glargine 20 UNITS in Pre-Filled Syringe 1 EACH SC SCH (08:31)
[2018-02-13] MEDS: Magnesium Chloride 64 MG TAB PO SCH ×2 (08:31→21:27)
[2018-02-13] MEDS: glipiZIDE 10 MG TAB PO SCH (08:35)
--- NOTE | 2018-02-13 12:08 | PDOC.CTH ---
<Catalina Glaser - Last Filed: 02/13/18 12:11> Cardiology Progress Note - Subjective The pt seen and examined. No overnight events. No cardiac complaints. He stated he would like to go home possible today. - Objective Vital Signs Temp Pulse Resp BP BP Pulse Ox 02/13/18 08:30 64 02/13/18 08:25 96 02/13/18 08:24 97.5 F L 64 16 135/85 96 02/13/18 05:37 93 L 02/13/18 04:00 97.4 F L 41 L 16 142/66 H 93 L Admit Weight 323 lb 12.8 oz Weight 265 lb 11.2 oz 02/12/18 02/13/18 02/14/18 06:59 06:59 06:59 Intake Total 1210 940 Output Total 3350 1540 Balance -2140 -600 - Physical Examination General/Neuro: alert & oriented x3 Neck: no JVD present Lungs: CTA Heart: other: (irregular) Abdomen: soft Extremities: other: (2+ pitting BLE edema) - Telemetry Telemetry Rhythm: AFib 60s with occ. bigem PVCs. - Labs Result Diagrams: 02/10/18 09:40 02/11/18 05:35 Troponin/CKMB Troponin I 0.206 ng/mL (< 0.028) H 01/29/18 02:51 - Assessment/Plan 1. Non-ischemic CMY - uncertain etiology but suspect correction systolic CHF associated with Afib and non-compliance. The pt cont. refusing LifeVest. Cont. aggressive medical therapy and medication compliance then he will be a candidate for an implantable AICD within 90 days. 2. Acute on Chronic Systolic HF - Has improved with Lasix with Metolazone. On Lasix 40mg BID, BBlocker and JONNY. Jonny Wrap to BLE. 3. Chronic Afib with RVR - Rate controlled with Coreg 3.125mg BID, Dig 0.25mg qd , and Eliquis 5mg BID. 4. Edema of lower extremities with cellulites. Improving with antibiotics and diuretics. JONNY wrap to BLE daytimes. 6. Morbid obesity. 7. Depression/anxiety. 8. NADEEM: wears a CPAP mask. 9. DMII: per primary service. Reasonably well controlled. 10. HTN- stable 11. 3 episodes of NSVTs - No more NSVTs, but intermittent Bige PVCs. On Amiodarone 400mg TID for 1wk from today at 1530, 400mg BID for 1wk, 200mg BID for 1wk, 200mg BID for 1wk, and 200mg qd. 12. Hypothyrodism - Levothyroxin was started from this AM by PCP 13. Obese - weight management education given to the pt. 14. RBBB - stable MAR reviewed * Echo on 01/29/18 showed EF < 25-30%, dilated LV, mod ERV, mod-severe dilated LA, mod ERA, mild MR and mild TR * He cont. refusing to apply Medicaid and refused to have LifeVest today. * From Cardiac standpoint, the pt is stable to d/c home. The pt will f/u with Dr Silva' office within 2wks. * Coupon for Eliquis will give to the pt at discharge. Review of Systems - Review of Systems Constitutional: reports: no symptoms reported EENTM: reports: no symptoms reported Respiratory: reports: no symptoms reported Cardiac (ROS): reports: no symptoms reported ABD/GI: reports: no symptoms reported : reports: no symptoms reported Musculoskeletal: reports: no symptoms reported Skin: reports: no symptoms reported <Dallas Silva - Last Filed: 02/13/18 22:13> Cardiology Progress Note - Objective Vital Signs Temp Pulse Resp BP Pulse Ox 02/13/18 15:04 62 16 119/57 L 94 L 02/13/18 12:10 97.3 F L 67 16 129/81 97 Admit Weight 323 lb 12.8 oz Weight 265 lb 11.2 oz 02/12/18 02/13/18 02/14/18 06:59 06:59 06:59 Intake Total 1210 940 Output Total 3350 1540 Balance -2140 -600 - Labs Result Diagrams: 02/10/18 09:40 02/11/18 05:35 Troponin/CKMB Troponin I 0.206 ng/mL (< 0.028) H 01/29/18 02:51 - Assessment/Plan Pt. seen and eval. by me. I agree with the A/P by the STATE EPIDEMIOLOGIST.Pt. learning how to self inject for insulin. Chest clear. RRR.
[2018-02-13] MEDS: HumaLOG 300 UNITS/3 ML VIAL SC PRN ×3 (12:19→21:09)
--- NOTE | 2018-02-13 18:13 | PRG ---
DATE OF SERVICE: 02/13/2018 SUBJECTIVE: The patient was seen and examined at the bedside. He was about to be discharged today to home, but he learned that he will have to inject himself with insulin and he became very anxious and not willing to even try. He says that he is scared of doing any injections. OBJECTIVE: VITAL SIGNS: Blood pressure is 119/55, pulse is 62, respiratory rate is 16, and O2 saturation is 94% on room air. HEENT: His head is atraumatic, normocephalic. Eyes are PERRLA. Sclerae are nonicteric. LUNGS: Breath sounds are diminished at both bases. HEART: S1, S2 normal. There is a small systolic murmur at the left sternal border, increased with inspiration. ABDOMEN: Soft, obese, nontender. EXTREMITIES: Venous stasis present on both lower extremities. 1 to 2+ peripheral edema. NEUROLOGICAL: He follows my commands. He moves his all 4 extremities. LABORATORY DATA: Glycemia is ranging from 162 to 213. IMPRESSION: 1. [id number] systolic and diastolic heart failure. 2. Atrial fibrillation with rapid ventricular response, rate controlled on anticoagulant. 3. Hypertension. 4. Obstructive sleep apnea, on CPAP. 5. Diabetes mellitus type-2. 6. Nonsustained ventricular tachycardia. 7. Chronic venous stasis. DISCUSSION: The patient's discharge was postponed since he is not ready to inject himself with insulin and that is the only option we have at this point. He requires 30 units of insulin a day and there is no medication which is going to be adequate for the dose, so he is going to try to learn and overcome the barrier on his scare he has of doing these kind of injections. For now, we will continue current regimen and he should be able to go home as soon as he overcomes this fear. Job ID: [id number]
[2018-02-13] MEDS: Insulin Glargine 10 UNITS in Pre-Filled Syringe 1 EACH SC SCH (21:08)
[2018-02-13] MEDS: Atorvastatin Calcium 40 MG TAB PO SCH (21:28)
[2018-02-13] MEDS: Zolpidem Tartrate 5 MG TAB PO PRN (21:32)
[2018-02-14] MEDS: Levothyroxine Sodium 25 MCG TAB PO SCH (06:02)
[2018-02-14] MEDS: Allopurinol 100 MG TAB PO SCH (08:48)
[2018-02-14] MEDS: Amiodarone 200 MG TAB PO SCH (08:48)
[2018-02-14] MEDS: Carvedilol 3.125 MG TAB PO SCH (08:48)
[2018-02-14] MEDS: Metolazone 5 MG TAB PO SCH (08:48)
[2018-02-14] MEDS: Potassium Chloride 20 MEQ TAB PO SCH (08:48)
[2018-02-14] MEDS: Apixaban 5 MG TAB PO SCH (08:49)
[2018-02-14] MEDS: Digoxin 0.25 MG TAB PO SCH (08:49)
[2018-02-14] MEDS: Famotidine 20 MG TAB PO SCH (08:49)
[2018-02-14] MEDS: Magnesium Chloride 64 MG TAB PO SCH (08:50)
[2018-02-14] MEDS: glipiZIDE 10 MG TAB PO SCH (08:50)
[2018-02-14] MEDS: Furosemide 40 MG TAB PO SCH ×2 (08:50→14:44)
[2018-02-14] MEDS: Gabapentin 100 MG CAP PO SCH ×2 (08:50→14:43)
[2018-02-14] MEDS: Lisinopril 5 MG TAB PO SCH (08:50)
[2018-02-14] MEDS: Insulin Glargine 20 UNITS in Pre-Filled Syringe 1 EACH SC SCH (08:50)
[2018-02-14] MEDS: HYDROcodone/Acetaminophen 5/325 mg Tablet PO PRN (08:53)
[2018-02-14] MEDS: ALPRAZolam 0.25 MG TAB PO PRN (08:53)
[2018-02-14] MEDS: Bacitracin Zinc 1 Packet TOP SCH ×2 (08:58→14:44)
--- NOTE | 2018-02-14 10:53 | PDOC.CTH ---
Cardiology Progress Note - Objective Vital Signs Temp Pulse Resp BP Pulse Ox 02/14/18 08:50 59 L 02/14/18 08:49 59 L 02/14/18 08:45 97.9 F 59 L 17 130/88 95 02/14/18 04:38 95 02/14/18 04:00 97.5 F L 58 L 16 126/69 95 Admit Weight 323 lb 12.8 oz Weight 265 lb 9.6 oz 02/13/18 02/14/18 02/15/18 06:59 06:59 06:59 Intake Total 940 720 Output Total 1540 1975 Balance -600 -6612 - Labs Result Diagrams: 02/10/18 09:40 02/11/18 05:35 Troponin/CKMB Troponin I 0.206 ng/mL (< 0.028) H 01/29/18 02:51 - Assessment/Plan 1. Non-ischemic CMY - uncertain etiology but suspect intermediate manager systolic CHF associated with Afib and non-compliance. The pt cont. refusing LifeVest. Cont. aggressive medical therapy and medication compliance then he will be a candidate for an implantable AICD within 90 days. 2. Acute on Chronic Systolic HF - Has improved with Lasix with Metolazone. On Lasix 40mg BID, BBlocker and JONNY. Jonny Wrap to BLE. 3. Chronic Afib with RVR - Rate controlled with Coreg 3.125mg BID, and Eliquis 5mg BID. Pt. with bradycardia today. Will stop digoxin. decrease amiodarone. 4. Edema of lower extremities with cellulites. Improving with antibiotics and diuretics. JONNY wrap to BLE daytimes. 6. Morbid obesity. 7. Depression/anxiety. 8. NADEEM: wears a CPAP mask. 9. DMII: per primary service. Reasonably well controlled. 10. HTN- stable 11. 3 episodes of NSVTs - No more NSVTs, but intermittent Bige PVCs. Was On Amiodarone 400mg TID for 1wk from today at 1530, 400mg BID for 1wk, 200mg BID for 1wk, 200mg BID for 1wk, and 200mg qd. I will decrease to 200 tid for a week and then taper to 200 bid for 2 weekds and then 200mg qd. 12. Hypothyrodism - on Levothyroxin 13. Obese - weight management education given to the pt. 14. RBBB - stable MAR reviewed * Echo on 01/29/18 showed EF < 25-30%, dilated LV, mod ERV, mod-severe dilated LA, mod ERA, mild MR and mild TR * He cont. refusing to apply Medicaid and refused to have LifeVest today. * From Cardiac standpoint, the pt is stable to d/c home if the HR average is above 50bpm and no pauses. The pt will f/u with Dr Silva' office within 2wks. * Coupon for [place] will give to the pt at discharge.
[2018-02-14] MEDS: HumaLOG 300 UNITS/3 ML VIAL SC PRN (11:48)
--- NOTE | 2018-02-14 14:39 | DIS ---
DATE OF ADMISSION: 01/29/2018 DATE OF DISCHARGE: 02/14/2018 [facility] call admission for [facility]. DISPOSITION: Discharged to home. FINAL DIAGNOSES: [id number] combined systolic and diastolic heart failure, atrial fibrillation, chronic kidney disease stage 3, type 2 diabetes with chronic kidney disease, demand ischemia, hypertension, obstructive sleep apnea, hypothyroidism, and hyperuricemia. DISCHARGE MEDICATIONS: 1. Glipizide 10 mg a day. 2. Metformin 1000 mg twice a day. 3. K-Dur 20 mEq a day. 4. Zaroxolyn 5 mg a day. 5. Lisinopril 5 mg a day. 6. Levothyroxine 25 mcg a day. 7. Novolin 70/30 fifteen units subcu twice a day. 8. Gabapentin 300 mg a day. 9. Lasix 40 mg twice a day. 10. Digoxin 0.25 mg a day. 11. Coreg 3.125 mg twice a day. 12. Aspirin 81 mg a day. 13. Eliquis 5 mg twice a day. 14. Amiodarone 200 mg p.o. 3 times a day. ALLERGIES: NONE. PENDING AT TIME OF DISCHARGE: Nothing. CODE STATUS: Full. DIET: Diabetic. CONSULTATION: Cardiology, Dr. Angel Silva. PROCEDURES: None. HOSPITAL COURSE: [facility] exacerbation, atrial fibrillation with rapid ventricular response. Echocardiogram was ordered. Diuresis was started with Lasix, put on fluid restriction. He was started on Coreg for his atrial fibrillation, Eliquis 5 mg a day. Cardiology was consulted. Echocardiogram revealed EF 25% to 30%, enlarged left atrium, mitral regurgitation, and atrial fibrillation. Cardiology recommendations ADDENDUM Consultation from Dr. Angel Silva. She agreed with beta-allie, oral anticoagulation, diuresis. Care for his diabetes was also started, Accu-Cheks and sliding scale. The patient was eventually started on long-acting insulin, oral hypoglycemic. His hospital stay was prolonged for training in use of insulin and discussions over LifeVest. On 02/02/2018, shortness of breath improving, no chest pain, vital signs stable, continued to have significant diuresis. Accu-Cheks were in the 100 to 200 range. On 02/05, the patient continued to improve, IV Lasix, metolazone, fluid restriction, potassium was being replaced, Accu-Cheks, etc., continued to be followed. On 02/07, Cardiology progress note, continued to improve, reports from [facility] had been obtained, reviewed, which showed that he had significant decompensation. On 02/11, the patient was considered stable for discharge; however, he was still being trained on self-injection. Cardiology progress note, LifeVest was recommended, prescription written for same. Currently, vital signs are stable. Cardiac exam shows atrial fibrillation, controlled with ventricular response. Chest is clear. His most recent laboratory shows blood sugars 100 to 200, creatinine is 1.17, BUN 26, sodium 139, potassium 3.9. He is on Eliquis. INR is not necessary. His hemoglobin is stable at 13.6. Platelet count is diminished at 95. He has no elevated white count. His thrombocytopenia has been chronic. He is currently stable. Discharge order has been written. Forty minutes have been spent preparing this discharge. He has followup arranged with [facility] on 02/18/2018, with basic metabolic profile to be done then. He has an appointment with cardiac rehab on 02/17/2018, at 8 a.m. As I mentioned before, no procedures were done. DIAGNOSIS: Obstructive sleep apnea. RECOMMENDATIONS: Sleep study as outpatient. Job ID: [id number]
[2018-02-14] MEDS ORDERED: Amiodarone 200 MG TAB PO SCH (15:00)
[2018-02-14 15:30] VITALS: BP 129/82; TEMP 98.2
== END 2018-02-14 16:56 | disposition home or self-care (01) | DRG 291 ==
LOC: ERS 23:33 → 2NO 01-29 00:45
PROVIDERS: ADMIT Hospitalist; ATTEND Hospitalist
DX: I13.0 Hypertensive heart and chronic kidney disease with heart failure and stage 1 through stage 4 chronic kidney disease, or unspecified chronic kidney disease (principal); I50.43 Acute on chronic combined systolic (congestive) and diastolic (congestive) heart failure; Z68.42 Body mass index [BMI] 45.0-49.9, adult; I24.8 Other forms of acute ischemic heart disease; I47.2 Ventricular tachycardia; E66.01 Morbid (severe) obesity due to excess calories; G47.33 Obstructive sleep apnea (adult) (pediatric); F41.9 Anxiety disorder, unspecified; F32.9 Major depressive disorder, single episode, unspecified; E11.22 Type 2 diabetes mellitus with diabetic chronic kidney disease; N18.3 Chronic kidney disease, stage 3 (moderate); D69.6 Thrombocytopenia, unspecified; E11.65 Type 2 diabetes mellitus with hyperglycemia; E03.9 Hypothyroidism, unspecified; E79.0 Hyperuricemia without signs of inflammatory arthritis and tophaceous disease; E83.42 Hypomagnesemia; E87.6 Hypokalemia; I48.2 Chronic atrial fibrillation; I45.10 Unspecified right bundle-branch block; I42.9 Cardiomyopathy, unspecified; Z91.14 Patient's other noncompliance with medication regimen; Z79.82 Long term (current) use of aspirin; Z79.84 Long term (current) use of oral hypoglycemic drugs
CPT/HCPCS: 36415; 36416; 71045; 80048; 80053; 80061; 81001; 82565; 82570; 83036; 83735; 83880; 84156; 84443; 84484; 84550; 85014; 85018; 85025; 85049; 85610; 93306; 93458; 93798; 93970; 94640; 94660; 94760; 99152; 99153; 99285; C1769; J1160; J1250; J1644; J1940; J2001; J2250; J3475; J7050; J7620; Q0162